=== PATIENT | female | born 1935 ===

== ENCOUNTER 2016-08-14 04:37 | Inpatient (IN) | payer MEDICARE, OTHER ==
[2016-08-14 04:39] VITALS: BMI 24.0
[2016-08-14] MEDS ORDERED: HYDROmorphone 1 mg/ml ISec IVP STA ×2 (04:48→06:29)
--- NOTE | 2016-08-14 04:53 | ED PDOC ---
Arrival/HPI - General Chief Complaint: Trauma Time Seen by Provider: 08/14/16 04:39 Historian: Patient - History of Present Illness Narrative History of Present Illness (Text): 08/14/16 04:50 Vanessa Foote is a 81 year old female, with a history of myeloma and arthritis , presents to the emergency department via EMS complaining of right sided hip pain following a trip and fall prior to arrival. Denies any head trauma or loss of consciousness. Denies numbness/weakness/tingling sensation to extremity. Denies fever, chills, headache, dizziness, chest pain, shortness of breath, nausea, vomiting, diarrhea, abdominal pain, back pain, or any other complaints at this time. Time/Duration: Prior to Arrival Symptom Onset: Sudden Symptom Course: Unchanged Severity Level: Mild Activities at Onset: Light Context: Tripped Past Medical History - Provider Review Nursing Documentation Reviewed: Yes - Infectious Disease Hx of Infectious Diseases: None - Cardiac Hx Hypertension: No Other/Comment: L chest pacemaker - Neurological HX Cerebrovascular Accident: Yes - HEENT Hx HEENT Disorder: Yes (cerumen impaction, eyeglasses) Hx Cataracts: Yes (b/l sx with implants) - Endocrine/Metabolic Hx Diabetes Mellitus Type 1: No Hx Diabetes Mellitus Type 2: No - Hematological/Oncological Hx Blood Transfusions: Yes Hx Blood Transfusion Reaction: No Hx Cancer: Yes Hx Shingles: Yes Other/Comment: Multiple Myeloma - Integumentary Hx Dermatological Disorder: No Other/Comment: Shingles in the right groin area and right upper buttocks - Musculoskeletal/Rheumatological Hx Arthritis: Yes - Gastrointestinal Hx Gastrointestinal Disorders: Yes (consitpation) - Genitourinary/Gynecological Hx Genitourinary Disorders: No Hx Incontinence: Yes - Psychiatric Hx Psychophysiologic Disorder: No Hx Substance Use: No - Surgical History Other/Comment: L chest pacemaker - Anesthesia Hx Anesthesia: Yes Hx Anesthesia Reactions: No Hx Malignant Hyperthermia: No Family/Social History - Physician Review Nursing Documentation Reviewed: Yes Family/Social History: No Known Family HX Smoking Status: Never Smoked Hx Alcohol Use: No Hx Substance Use: No Allergies/Home Meds Allergies/Adverse Reactions: Allergies No Known Allergies Allergy (Verified 09/21/15 10:23) Home Medications: Home Meds Medication Instructions Recorded Confirmed Aspirin [Aspirin Chewable] 81 mg PO DAILY 01/30/15 08/14/16 Lenalidomide [Revlimid] 10 mg PO DAILY 01/30/15 08/14/16 Alendronate Sodium/Vitamin D3 70 mg PO QWK 09/21/15 08/14/16 [Fosamax Plus D 70 mg-2,800 Iu] Carbamide Peroxide [Debrox Ear 5 drop OT BID 09/21/15 08/14/16 Drops] Cholecalciferol (Vitamin D3) 50,000 unit PO QWK 09/21/15 08/14/16 [D3-50] Cyanocobalamin [Vitamin B12 1000 1,000 mcg PO DAILY 09/21/15 08/14/16 mcg Tab] Levothyroxine Sodium [Synthroid] 200 mcg PO DAILY 09/21/15 08/14/16 Potassium Chloride [K-Dur 20 mEq 20 meq PO DAILY 09/21/15 08/14/16 ER Tab] traZODone [Desyrel] 25 mg PO HS 09/21/15 08/14/16 Physical Exam Vital Signs Reviewed: Yes Vital Signs Temp Pulse Resp BP Pulse Ox 08/14/16 07:30 70 16 128/68 97 08/14/16 04:40 97.8 F 65 18 143/71 98 Temperature: Afebrile Blood Pressure: Normal Pulse: Regular Respiratory Rate: Normal Appearance: Positive for: Well-Appearing, Non-Toxic, Comfortable Pain Distress: None Mental Status: Positive for: Alert and Oriented X 3 - Systems Exam Head: Present: Atraumatic, Normocephalic Pupils: Present: PERRL Extroacular Muscles: Present: EOMI Conjunctiva: Present: Normal Neck: Present: Normal Range of Motion. No: MIDLINE TENDERNESS, Paraspinal Tenderness Respiratory/Chest: Present: Clear to Auscultation, Good Air Exchange. No: Respiratory Distress, Accessory Muscle Use Cardiovascular: Present: Regular Rate and Rhythm, Normal S1, S2. No: Murmurs Abdomen: Present: Normal Bowel Sounds. No: Tenderness, Distention, Peritoneal Signs Back: Present: Normal Inspection. No: Midline Tenderness, Paraspinal Tenderness Upper Extremity: Present: Normal Inspection. No: Cyanosis, Edema Lower Extremity: Present: NORMAL PULSES, Tenderness (tender to palpation of right hip ), Neurovascularly Intact. No: Edema, Swelling Neurological: Present: GCS=15, CN II-XII Intact, Speech Normal, Motor Func Grossly Intact, Normal Sensory Function Skin: Present: Warm, Dry, Normal Color. No: Rashes Psychiatric: Present: Alert, Oriented x 3, Normal Insight, Normal Concentration Medical Decision Making ED Course and Treatment: 08/14/16 04:53 Impression: A 81 year old female who presents to the emergency department complaining of right hip pain following trip and fall prior to arrival. Plan: -- EKG -- Labs -- Chest X-ray -- Dilaudid -- Right hip X-ray -- Urinalysis -- Reassess and disposition Progress Notes: 08/14/16 05:49 EKG reviewed by me: Electronic atrial pacemaker @ 60 bpm. Nonspecific T wave abnormality. Prolonged QT. case d/w dr mitchell will admit for pelvic fracture 08/15/16 22:41 - Lab Interpretations Lab Results: 08/14/16 05:05 08/14/16 05:05 Lab Results 08/14/16 05:05: Sodium 142, Potassium 3.6, Chloride 102, Carbon Dioxide 29, Anion Gap 15, BUN 18, Creatinine 0.9, Est GFR ( Amer) > 60, Est GFR (Non- Af Amer) > 60, Random Glucose 102, Calcium 8.7, Total Bilirubin 0.9, AST 46 H, ALT 48, Alkaline Phosphatase 86, Troponin I 0.02 D, Total Protein 8.1, Albumin 4.0, Globulin 4.1, Albumin/Globulin Ratio 1.0 L 08/14/16 05:05: PT 10.8, INR 1.00, APTT 26.0 08/14/16 05:05: WBC 4.4 L, RBC 3.25 L, Hgb 11.2 L, Hct 33.6 L, MCV 103.4, MCH 34.5, MCHC 33.3, RDW 13.9, Plt Count 146, MPV 9.5, Gran % 49.7 L, Lymph % (Auto ) 33.9, Cedar % (Auto) 10.8 H, Eos % (Auto) 4.7, Baso % (Auto) 0.9, Gran # 2.20, Lymph # 1.5, Cedar # 0.5, Eos # 0.2, Baso # 0.04 - RAD Interpretation Radiology Orders: 08/14/16 04:47 Hip Right [HIP MIN 2V W/ PELVIS RT] [RAD] Stat 08/14/16 04:48 CHEST ONE VIEW [RAD] Stat - Medication Orders Current Medication Orders: Docusate Sodium (Colace) 100 mg PO TID [facility] Last Admin: 08/15/16 17:44 Dose: 100 mg Enoxaparin Sodium (Lovenox) 40 mg SC DAILY [facility] PRN Reason: Protocol Last Admin: 08/15/16 10:48 Dose: 40 mg Hydromorphone HCl (Dilaudid) 0.5 mg IVP Q4H PRN PRN Reason: pain Last Admin: 08/15/16 21:19 Dose: 0.5 mg Levothyroxine Sodium (Synthroid) 200 mcg PO DAILY [facility] Last Admin: 08/15/16 10:50 Dose: 200 mcg Metoprolol Tartrate (Lopressor) 25 mg PO BID [facility] Last Admin: 08/15/16 17:36 Dose: Not Given Non-Admin Reason: BP Parameters Not Met Pantoprazole Sodium (Protonix Ec Tab) 40 mg PO ACB [facility] Last Admin: 08/15/16 07:45 Dose: 40 mg Polyethylene Glycol (Miralax) 17 gm PO DAILY [facility] Last Admin: 08/15/16 10:49 Dose: 17 gm Tramadol HCl (Ultram) 50 mg PO TID PRN PRN Reason: Pain, moderate (4-7) Last Admin: 08/15/16 14:40 Dose: 50 mg Re-Assess: ROSI Pain Assessment Document 08/15/16 15:40 AJ (Rec: 08/15/16 17:36 [id number]) Pain Reassessment Is this a pain reassessment? Yes Sleep Is patient sleeping during reassessment? Yes Trazodone HCl (Desyrel) 25 mg PO [facility] Last Admin: 08/15/16 21:19 Dose: 25 mg Discontinued Medications Hydromorphone HCl (Dilaudid) 1 mg IVP STAT STA Stop: 08/14/16 04:49 Last Admin: 08/14/16 05:24 Dose: 1 mg Hydromorphone HCl (Dilaudid) 1 mg IVP STAT STA Stop: 08/14/16 06:30 Last Admin: 08/14/16 06:41 Dose: 1 mg Lenalidomide [ Revlimid] 10 Mg ( Home Med) 10 mg PO DAILY [facility] Last Admin: 08/14/16 10:57 Dose: Pantoprazole Sodium (Protonix Inj) 40 mg IVP DAILY [facility] Last Admin: 08/14/16 10:57 Dose: 40 mg Pneumococcal Polyvalent Vaccine (Pneumovax 23 Vaccine) 0.5 ml IM .ONCE ONE Stop: 08/14/16 13:57 Last Admin: 08/15/16 10:49 Dose: - Scribe Statement The provider has reviewed the documentation as recorded by the Grey Maradiaga Provider Attestation: All medical record entries made by the Grey were at my direction and personally dictated by me. I have reviewed the chart and agree that the record accurately reflects my personal performance of the history, physical exam, medical decision making, and the department course for this patient. I have also personally directed, reviewed, and agree with the discharge instructions and disposition. Disposition/Present on Arrival - Present on Arrival Any Indicators Present on Arrival: No History of DVT/PE: No History of Uncontrolled Diabetes: No Urinary Catheter: No History of Decub. Ulcer: No History Surgical Site Infection Following: None - Disposition Have Diagnosis and Disposition been Completed?: Yes Diagnosis: Pelvis fracture, right Disposition: HOSPITALIZED Disposition Time: 06:40 Condition: FAIR
[2016-08-14 05:35] LABS: ADD MANUAL DIFF? NO
[2016-08-14 05:40] LABS: BASO # 0.04 K/mm3 (0.0-2.0); BASO % 0.9 % (0.0-3.0); EOS # 0.2 (0.0-0.7); EOS % 4.7 % (1.5-5.0); GRAN % 49.7 % (50.0-68.0); HEMATOCRIT 33.6 % (36.0-48.0); LYMPH # 1.5 (1.2-3.4); LYMPH % 33.9 % (22.0-35.0); MEAN CELL VOLUME 103.4 fL (80.0-105.0); MEAN CORPUSCULAR HEMOGLOBIN 34.5 pg (25.0-35.0); MEAN CORPUSCULAR HGB CONC 33.3 g/dl (31.0-37.0); MEAN PLATELET VOLUME 9.5 fl (7.0-11.0); MONO # 0.5 (0.1-0.6); MONO % 10.8 % (1.0-6.0); PLATELET COUNT 146 10^3/uL (120.0-450.0); RED CELL DISTRIBUTION WIDTH 13.9 % (11.5-14.5); WHITE BLOOD COUNT 4.4 10^3/ul (4.5-11.0)
[2016-08-14 05:59] LABS: ALKALINE PHOSPHATASE 86 U/L (38-133); ALT/SGPT 48 U/L (7-56); AST/SGOT 46 U/L (15-39); BILIRUBIN,TOTAL 0.9 mg/dL (0.2-1.3); BLOOD UREA NITROGEN 18 mg/dL (7-21); CALCIUM 8.7 mg/dL (8.4-10.5); CARBON DIOXIDE 29 mmol/L (21-33); CHLORIDE 102 mmol/L (95-110); GFR AFRICAN-AMERICAN > 60; GLUCOSE,RANDOM 102 mg/dL (70-110); POTASSIUM 3.6 mmol/L (3.6-5.0); SODIUM 142 mmol/L (132-148); TOTAL PROTEIN 8.1 g/dL (5.8-8.3)
[2016-08-14 06:04] LABS: TROPONIN I 0.02 ng/mL
--- NOTE | 2016-08-14 09:04 | RAD ---
PROCEDURE: Right Hip Radiographs. A-P of the O with his 3rd fraction the iliac crests HISTORY: fall COMPARISON: None. FINDINGS: BONES: Right hip appears intact. No dislocation or fracture. Comminuted fracture right inferior pubic ramus. Fracture lateral aspect right superior pubic ramus. zFracture junction of right superior pubic ramus with pubic symphysis, possibly comminuted. Displaced fracture right iliac wing. Likely comminuted. . JOINTS: Normal. SOFT TISSUES: Normal. OTHER FINDINGS: None. IMPRESSION: Fracture right superior and inferior pubic rami. Fracture right iliac wing. Unremarkable hip.
--- NOTE | 2016-08-14 09:05 | RAD ---
PROCEDURE: CHEST RADIOGRAPH, 1 VIEW HISTORY: pain COMPARISON: 09/26/2015 FINDINGS: LUNGS: Clear. PLEURA: No pneumothorax or pleural fluid seen. CARDIOVASCULAR: Permanent pacemaker. No congestive change. OSSEOUS STRUCTURES: Deformity right humeral neck, likely old healed fracture. No change from prior chest radiograph. VISUALIZED UPPER ABDOMEN: Normal. OTHER FINDINGS: None. IMPRESSION: No active disease.
[2016-08-14] MEDS ORDERED: LENALIDOMIDE 10 MG PO SCH (10:00)
[2016-08-14] MEDS: HYDROmorphone 0.5 mg/0.5 ml ISec IVP PRN ×2 (10:57→21:02)
[2016-08-14] MEDS: Levothyroxine 200 MCG TAB PO SCH (10:57)
--- NOTE | 2016-08-14 13:29 | CT ---
PROCEDURE: CT of the hips and pelvis HISTORY: do hip and pelvis - has pelvic fracture COMPARISON: TECHNIQUE: Axial imaging with sagittal and coronal reconstructions FINDINGS: There is a displaced comminuted fracture of the right iliac bone adjacent to the sacroiliac joint. There is a transverse fracture through base of the superior pubic ramus seen on image 53 series 2. There is a displaced comminuted fracture of the inferior pubic ramus on the right image 72 series 2. Several lucent lesions are seen which are suspicious for metastatic disease. This could be secondary to osteoporosis. These lesions are seen in the right ischium on coronal image 67 and in the right greater tuberosity and the left femoral head. Despite the extent of the right-sided pelvic fractures the acetabulum is intact IMPRESSION: Displaced comminuted fracture of the right iliac bone and fractures through the superior and inferior pubic rami on the right. Several lucent lesions which could represent metastatic disease or could be secondary to severe osteoporosis. Clinical correlation is suggest
[2016-08-14] MEDS ORDERED: Pneumococcal 23-Valent Vaccine IM ONE (13:56)
--- NOTE | 2016-08-14 15:07 | CON ---
DATE: 08/14/2016 REASON FOR CONSULTATION: Cardiac evaluation for pelvic fracture. Preop evaluation and risk stratifi cation. Is status post permanent pacemaker. BRIEF CLINICAL HISTORY: This is a 81-year-old female with a past medical history significant for mul tiple myeloma, hypothyroidism, hypertension, depression, CVA, bone marrow transplant, status post pac emaker in 01/2015, who fell down in living room and sustained pelvic fracture, right side, possibly r equiring OR internal fixation. Cardiac consult was called for preop evaluation and risk stratificati on. PAST HISTORY: Significant for multiple myeloma, hypothyroidism, hypertension, depression, CVA, bone marrow transplantation, multiple myeloma, history of permanent pacemaker in 01/2015, when patient pre sented with subtrochanteric fracture of left femur, for symptomatic bradycardia. PAST SURGICAL HISTORY: Significant for status post left trochanteric fracture, history of permanent pacemaker by Dr. Guido in 01/2015 -- dual chamber pacemaker, MRI safe [employer], 01/30/2015. ALLERGIES: No known drug allergies. SOCIAL HISTORY: Denies smoking. Denies any history of alcohol abuse. The patient's daughter named Nelda is at the bedside. Information obtained from the patient as well as Nelda. CURRENT MEDICATIONS: The patient at home was taking Desyrel, trazodone, potassium, levothyroxine, Co lace, cyanocobalamin, vitamin B3, aspirin, and Fosamax. REVIEW OF SYSTEMS: As per HPI. PHYSICAL EXAMINATION: As follows: VITAL SIGNS: Temperature afebrile, heart rate 70, blood pressure 128/68. HEENT: PERRLA. Extraocular muscles intact. NECK: Supple. No carotid bruits. No thyromegaly. CHEST: Clear to auscultation. HEART: S1, S2 regular. ABDOMEN: Soft. EXTREMITIES: Clubbing and cyanosis negative. PREVIOUS CARDIAC WORKUP: As follows: The patient had echocardiography done 01/31/2015. It shows hyp ertrophy, LVH and normal LV function, no segmental wall motion abnormality, moderate aortic sclerosis , mild aortic regurgitation, RV systolic pressure 32, calculated ejection fraction 55%. Status post permanent pacemaker dual chamber 01/30/2015, [employer] MRI safe by Dr. Guido because of symptomatic bradycardia and sick sinus syndrome. IMPRESSION: Status post pacemaker, sick sinus syndrome, dual chamber pacemaker 01/30/2015 -- MRI safe [employer]. Last echo shows normal left ventricular function, no regional wall motion abnormality, right ventricular systolic pressure 32, moderate aortic stenosis, mild aortic regurgitation, status p ost fall, hip fracture, pelvic fracture right, status post hip fracture, left trochanteric fracture s tatus post open reduction internal fixation in 01/2015; hypertension, hypothyroidism, multiple myelom a, status post bone marrow transplantation, cerebrovascular accident, depression and hypothyroidism, anemia. BLOOD WORKUP: WBC 4.4, hemoglobin ____, hematocrit 33.6, platelet count 146. Sodium 140, potassium 3.6, chloride ____, carbon dioxide ____, anion gap of 15, BUN 18, creatinine 0.9. PHYSICAL EXAMINATION: Rest of the examination as follows: VITAL SIGNS: Temperature afebrile, heart rate 65, blood pressure 143/71. HEENT: PERRLA, extraocular muscles intact. NECK: Supple. No carotid bruits or thyromegaly. CHEST: Clear to auscultation. HEART: S1, S2 regular. ABDOMEN: Soft. EXTREMITIES: Clubbing and cyanosis negative. FAMILY HISTORY: Noncontributory. RECOMMENDATION: No absolute contraindication for surgery, but to minimize risk, we will get an echo to assess LV function. Follow up with you. Start low dose of beta [place] and the patient should no t got into AFib. History of sick sinus syndrome in the past, status post permanent pacemaker. Sadie nue rest of the medication. We will follow with you. We will get the lipid profile, TSH, hemoglobin A1c. Further recommendation per hospital course. We will follow with you. Thank you, Dr. Bernardo, for providing the opportunity in taking care of the patient. Again, if the pa tient needs urgent surgery, patient is okay to go for surgery. Is a high risk because of underlying comorbidity, but ____ planned ____ surgery, we will get at least echo to assess LV function and aorti c valve area. We will follow with you. Yuridia Wayne MD cc: [id number] TT: 08/14/2016 13:45:45 Confirmation # [id number] Dictation # [id number] 08/14/2016 14:06:59
[2016-08-14] MEDS: Enoxaparin 40 mg Syringe SC SCH (18:09)
--- NOTE | 2016-08-14 22:42 | CARD ---
APPROVED REPORT EKG Measurement Heart [id number] <Conclusion> Electronic atrial pacemaker Nonspecific T wave abnormality Prolonged QT Abnormal ECG
--- NOTE | 2016-08-15 02:59 | CON ---
DATE: 08/14/2016 REFERRING PHYSICIAN: Dr. Bernardo. REASON FOR CONSULT: Status post fall with a right pelvic fracture. 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 Trauma she is on the right. Also suggeste d of metastatic disease. The patient was seen by orthopedic surgery. Patient was not a candidate fo r surgery and oncology services have been called. She is lying in the bed. No headache, no rhinitis , no cough. No chest pain, no nausea, no vomiting. Has right leg pain. PAST MEDICAL HISTORY: As per history of present illness. ALLERGIES: None known. SOCIAL HISTORY: Nonsmoker, nondrinker. PAST SURGICAL HISTORY: Remarkable with left trochanter fracture in the past and cardiac pacemaker. FAMILY HISTORY: No significant cardiopulmonary disease reported. MEDICATIONS: She is on Colace 100 mg 3 times a day, trazodone 25 mg at bedtime, Dilaudid 0.5 mg IV q . 4 hours p.r.n., home medication and is lenalidomide 10 mg daily, metoprolol tartrate has been 5 mg, last day, Lovenox 40 mg daily, Protonix 40 mg daily, Synthroid 20 mg daily, Ultram 50 mg 3 times a d ay. REVIEW OF SYSTEMS: No headache, no rhinitis, no nausea, no chest pain. No abdominal pain. Has righ t hip discomfort. No dysuria, no swelling. PHYSICAL EXAMINATION: GENERAL: Lying in the bed, in no acute distress. VITAL SIGNS: Temp is 98, heart rate is 70, respiratory rate is 16, blood pressure 128/68, Pulse ox 97% on room air. HEENT: Moist mucous membranes. Small oral cavity. Crowded airway. NECK: Supple. No JVD. LUNGS: Fair airflow with few rhonchi. HEART: S1, S2. ABDOMEN: Soft, nontender. No organomegaly. EXTREMITIES: The left hip is tender: There is no edema. NEUROLOGIC: Awake, alert, follows simple commands. LABORATORY DATA: Shows hemoglobin 11.2, hematocrit 33.6, WBC 4.4, platelet is 146. INR 1.0, PTT is 26. Sodium 142, potassium 3.6, chloride 102, bicarbonate 29, BUN 18, creatinine 0.9, glucose 102, ca lcium 8.7, total bilirubin 0.9, AST 46, ALT 48, alkaline phosphatase is 86. Troponin is 0.02. Album in is 4.0. CT of the hip shows right iliac fracture to the pubic rami. Chest x-ray done today shows no infiltrate or effusion. IMPRESSION AND PLAN: Status post accidental fall with a right iliac bone fracture with superior infe rior rami fracture, history of multiple myeloma, hypertension, history of previous CVA, depression, h istory of bone marrow transplant, cardiac arrhythmia requiring pacemaker. Case discussed with Dr. Samson mora in detail, who spoke to DrJeff . The patient is not a surgical candidate and oncology consult has been called. Pulmonary point of view, start thrombosis prophylaxis. Gastric prophylaxis. May get SCD to both lower extremities. Thank you and will follow with you Yuridia Marquez MD cc: [id number] TT: 08/15/2016 02:58:18 Confirmation # [id number] Dictation # [id number] mn
--- NOTE | 2016-08-15 07:36 | HP ---
CHIEF COMPLAINT: Fall, pain in the right hip. HISTORY OF PRESENT ILLNESS: The patient is a 81-year-old female with past medical history of multiple myeloma, arthritis, history of shingles, came to the Emergency Room by EMS complaining of right-sided hip pain following a trip and fall prior to arrival. Denies any head trauma, loss of consciousness. Denies numbness, weakness or tingling sensation to the extremity. No fever, no hematuria, no hematochezia, no chills, no headache, no shortness of breath, no abdominal pain. No back pain. PAST MEDICAL HISTORY: Left chest pacemaker, history of a cerebrovascular accident, cataract surgery, anemia, history of blood transfusion, history of shingles, constipation. FAMILY HISTORY: Father and mother noncontributory. HABITS: Never smoked, no drugs, no ethanol. ALLERGIES: The patient is not allergic with any medications. HOME MEDICATIONS: Aspirin, Revlimid, Fosamax, vitamin D, cyanocobalamin, levothyroxine, potassium, trazodone. PHYSICAL EXAMINATION: VITAL SIGNS: Temperature is 97.8, pulse 55, respiratory rate 18, blood pressure 143/71, and pulse oximetry 98. HEENT: Head normocephalic, atraumatic. Eyes: PERRLA. Extraocular muscles intact. Conjunctivae pink. Eyelids unremarkable. Nose patent. NECK: Supple. No carotid bruit. No JVD or thyromegaly. CHEST: Bilaterally symmetrical. HEART: S1, S2 positive. LUNGS: Clear to auscultation. ABDOMEN: Soft. Bowel sounds present. No organomegaly. EXTREMITIES: No edema, no cyanosis. Tenderness to the palpation of the right hip. NEUROLOGIC: The patient is awake, alert. Cranial nerves II-XII are grossly Intact. Speech is normal. LABORATORY DATA: White blood cells 4.4, hemoglobin 11.2, hematocrit 33.6, and platelets 146. Sodium 142, potassium 3.6, BUN 18, creatinine 0.9, AST 46. ASSESSMENT AND PLAN: The patient is a 81-year-old lady with abnormal liver function tests, leukopenia, anemia, seen by Dr. Wayne, epic analyst, in the process of making the patient clear for surgery. 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 According to Dr. Wayne, no absolute contraindication for surgery, but minimal risk. We will get an echo to assess the left ventricular function. He started low dose of beta [place] so the patient should not go to atrial fibrillation. History of sick sinus syndrome in the past, status post permanent pacemaker. Reviewed Dr. Wayne's notes. Chest x-ray, pelvis and hip x-rays and hip CT reviewed. consult called with Dr. Godfrey, waiting for documentation, but according to Tasneem, nurse practitioner, look like the patient has malignancy with metastasis and we have to call oncology consult. I called Dr. Dennis. Discussion done with Dr. Marquez , stevedoring supervisor, in the process of getting clearance for surgery. We will follow up. Sussy Bernardo MD cc: [id number] TT: 08/15/2016 07:36:07 tn MTDD
[2016-08-15] MEDS: Pantoprazole 40 mg EC Tab PO SCH (07:45)
[2016-08-15 07:52] LABS: BASO # 0.03 K/mm3 (0.0-2.0); BASO % 1.1 % (0.0-3.0); GRAN # 1.61 (1.4-6.5); GRAN % 60.1 % (50.0-68.0); HEMATOCRIT 26.9 % (36.0-48.0); LYMPH # 0.5 (1.2-3.4); LYMPH % 19.8 % (22.0-35.0); MEAN CELL VOLUME 102.7 fL (80.0-105.0); MEAN CORPUSCULAR HEMOGLOBIN 34.4 pg (25.0-35.0); MEAN CORPUSCULAR HGB CONC 33.5 g/dl (31.0-37.0); MEAN PLATELET VOLUME 8.9 fl (7.0-11.0); MONO # 0.5 (0.1-0.6); PLATELET COUNT 110 10^3/uL (120.0-450.0); RED CELL DISTRIBUTION WIDTH 13.9 % (11.5-14.5)
[2016-08-15 07:57] LABS: ALB/GLOB RATIO 0.9 (1.1-1.8); ALKALINE PHOSPHATASE 60 U/L (38-133); ALT/SGPT 35 U/L (7-56); AST/SGOT 34 U/L (15-39); BILIRUBIN,TOTAL 1.1 mg/dL (0.2-1.3); BLOOD UREA NITROGEN 20 mg/dL (7-21); CALCIUM 8.3 mg/dL (8.4-10.5); CARBON DIOXIDE 30 mmol/L (21-33); CHLORIDE 103 mmol/L (98-107); CHOLESTEROL 141 mg/dL (130-200); GFR AFRICAN-AMERICAN > 60; GLUCOSE,RANDOM 86 mg/dL (70-110); MAGNESIUM 1.9 mg/dL (1.7-2.2); PHOSPHOROUS 3.5 mg/dL (2.5-4.5); POTASSIUM 3.8 mmol/L (3.6-5.0); SODIUM 139 mmol/L (132-148); TOTAL PROTEIN 6.9 g/dL (5.8-8.3)
[2016-08-15 08:04] LABS: IRON 50 ug/dL (45-180)
[2016-08-15 08:08] LABS: ADD MANUAL DIFF? NO; WHITE BLOOD COUNT 2.7 10^3/ul (4.5-11.0)
--- NOTE | 2016-08-15 08:12 | CON ---
DATE: 08/14/2016 REQUESTED BY: Dr. Bernardo. REASON FOR CONSULTATION: Multiple myeloma, pelvic fracture. HISTORY OF PRESENT ILLNESS: The patient is a 81-year-old female admitted to the hospital after she fell in the house. She has pelvic fracture. She has history of multiple myeloma diagnosed in 2009. In the year 2009, she underwent autologous stem cell transplantation and is being followed at [facility] at [facility]. She said she goes regularly there. Her last evaluation was a month ago. As per the patient, she has been in remission after transplant. She is on revilimid for multiple myeloma. She told me that she gets a scans for bony lesions once a year. She does not recollect the last imaging or skeletal x-rays done. There were few lytic lesions seen on pelvic x- rays. Denies any pain. PAST MEDICAL HISTORY: History of blood transfusion, history of incontinence and recently had a pacemaker placed. PAST SURGICAL HISTORY: Pacemaker placement. FAMILY HISTORY: Noncontributory. SOCIAL HISTORY: Lives at home alone. ALLERGIES: No known drug allergies. HOME MEDICATIONS: Aspirin 81 mg daily, Revlimid, Fosamax 70 mg q. weekly, vitamin D, vitamin B12, levothyroxine 200 mcg daily, potassium supplement, Trazodone 25 mg p.o. at bedtime. REVIEW OF SYSTEMS: As per HPI, except for 12-point review of system reviewed and negative. PHYSICAL EXAMINATION: GENERAL: Comfortable in bed, in no acute distress. Alert, oriented x 3. VITAL SIGNS: Stable. Temperature 98.7, blood pressure 140/70, heart rate is 98 per minute, pulse rate is 65 per minute. HEENT: Head atraumatic, normocephalic. Oral mucosa moist. NECK: Supple. CHEST: Air entry present, equal bilateral. No added sound. CARDIOVASCULAR: Within normal limits. ABDOMEN: Soft, nontender, no hepatosplenomegaly. EXTREMITIES: 1+ edema bilaterally. No calf tenderness. SKIN: No petechiae, no rash. Lymphadenopathy- none.. SUGAR SAMPLER : no cranial nerve palsy, no sensory motor deficit. LABORATORY DATA: White count 4.4, hemoglobin 11.2, hematocrit 33.6, platelet count 146. Chemistry: Sodium 142, potassium 3.6, total bilirubin 0.9, AST 46, ALT 48. ASSESSMENT: 1. Multiple myeloma. 2. Fractured pelvic. 3. Osteoporosis. 4. Coronary artery disease. 5. Hypertension. PLAN: Hematology: Blood counts stable. Leukopenia. She has leukopenia with white count of 4.4, mild anemia , hemoglobin 11.2. She is on Revlimid, which can cause leukopenia and anemia. Will do the workup, iron studies, B12, folate level. She is also on B12 supplements. As per patient, she had been in remission after bone marrow transplantation in 2009. She follows with [facility] in myeloma program. Osteoporosis needs to be ruled out. She is currently on Fosamax. Newer agents are available for osteoporosis. She might benefit from them if she has osteoporosis. I will request records from [facility]. She lived in [facility] and [facility] was convenient for her. Now, she moved to [place] recently, she is requesting that if she can get medical followup locally in addition to [facility], I will discuss with the MDs at [facility] and try to coordinate her care at [place]. 2. Pain management as per primary team. Pelvic fracture secondary to mechanical fall. 3 She is currently on deep venous thrombosis prophylaxis with Lovenox 40 mg subQ. 4. hypothyroidism. She is on Synthroid 200 mcg daily. serum protein electrophoresis, immunofixation light chain assay , workup for anemia. Skeletal survey when stable. Thank you, Dr. Bernardo, for allowing us to participate in the patient's care. Sadia Dennis MD cc: [id number] TT: 08/15/2016 01:36:21 Confirmation # [id number] Dictation # [id number] daniel HANDLEY
--- NOTE | 2016-08-15 10:00 | CP.PCM.PCO ---
Physician Communication Note - Physician Communication Note Physician Communication Note: hold revlimid for leukopenia
--- NOTE | 2016-08-15 10:19 | CON ---
DATE: 08/15/2016 REASON FOR CONSULTATION: Right pelvic fracture status post mechanical fall. HISTORY OF PRESENT ILLNESS: This is a 81-year-old female with a history of multiple myeloma, hypothy roidism, prior left femoral hip fracture, history of CVA, who presented status post mechanical fall a t home with complaints of right pelvic pain and inability to ambulate. The patient normally ambulate s with a walker. She denies any other injuries. She denies any numbness or tingling going down her legs. She says her pain is mostly in her groin in the right pelvic region some. According to the prachi pereyra, she is currently receiving treatment for multiple myeloma with her doctor at [facility]. PHYSICAL EXAMINATION: GENERAL: This is an elderly female in no apparent distress. She is awake, alert and oriented x 3. NEUROLOGIC: She is grossly intact. EXTREMITIES: She has pain with passive range of motion of her hip. No gross crepitus is appreciated . Her thigh is otherwise soft. Her thigh and calf are otherwise soft and nontender. She is nontend er over her femoral or tibial shafts. She is moving her ankle without any difficulty. She has palpa ble distal pulses. Grossly, she is neurologically intact. She is tolerating some passive and active range of motion of the left lower extremity without significant pain. DATA: X-rays and CAT scan of her hip show a right-sided superior and inferior rami fractures, a comm inuted displaced right iliac crest fracture remind reminded. There are no obvious intracapsular hip fractures appreciated. The rami fracture appears to be a high rami and it does not appear to have si gnificant involvement of the acetabulum. The pelvic fractures, there appeared to be multiple lucent lesions in the ilium and pelvis, most likely consistent with her multiple myeloma and resulting in th radha pathological fractures. IMPRESSION: Right pathologic pelvic fractures. PLAN: At this point, I recommended that we get the oncology service on board to consult on her multi ple myeloma. For now, I recommended nonweightbearing on the right lower extremity, DVT prophylaxis. I am going to speak to her family about treatment options for this. Devante Godfrey MD cc: [id number] TT: 08/15/2016 10:18:42 Confirmation # [id number] Dictation # [id number] dn
[2016-08-15] MEDS: HYDROmorphone 0.5 mg/0.5 ml ISec IVP PRN ×3 (10:47→21:19)
[2016-08-15] MEDS: Enoxaparin 40 mg Syringe SC SCH (10:48)
[2016-08-15] MEDS: POLYETHYLENE GLYCOL 3350 17 GM/Dose PACKET PO SCH (10:49)
[2016-08-15] MEDS: Levothyroxine 200 MCG TAB PO SCH (10:50)
[2016-08-15 13:28] LABS: FOLATE 19.6 ng/mL
--- NOTE | 2016-08-15 16:53 | PN ---
DATE: 08/15/2016 REFERRING PHYSICIAN: Dr. Bernardo. SUBJECTIVE: She is lying in the bed. No headache, no rhinitis, no cough, no sputum production, no n ausea, no vomiting, has a right hip, leg discomfort. OBJECTIVE: GENERAL: No acute distress. VITAL SIGNS: Temp is 98, heart rate is 59, respiratory rate is 20, blood pressure 106/51, pulse ox 9 6% on room air. HEENT: Small oral cavity. Crowded airway. NECK: Supple. No JVD. LUNGS: Has a fair airflow with few rhonchi. HEART: S1, S2. ABDOMEN: Soft, nontender. No organomegaly. EXTREMITIES: Right hip tenderness, no swelling of the right leg. NEUROLOGIC: Awake, alert, follows simple command. MEDICATIONS: She is on Colace 100 mg 3 times a day, trazodone mg at bedtime, Dilaudid 0.5 mg I V q. 4 hours p.r.n., metoprolol tartrate 25 mg twice a day, Lovenox 40 mg daily, MiraLax 17 grams josé miguel ly, Protonix 40 mg daily, Synthroid 200 mcg daily, Ultram 50 mg 3 times a day p.r.n. LABORATORY DATA: Shows hemoglobin 9.0, hematocrit 26.9, WBC 2.7, platelet is 110. INR 1.0, PTT is 2 6, sodium 139, potassium 3.8, chloride 103, bicarbonate 30, BUN 20, creatinine 0.9. Hemoglobin A1c 5 .2, calcium 8.3, phosphorus 3.5, magnesium 1.9, iron 50, ferritin is 184, total bili 1.1, AST 34, ALT 35. Albumin 3.3. Folate 19. B12 323. TSH is 5.69. IMPRESSION AND PLAN: Status post mechanical fall with rami fracture, has multiple myeloma, hypertens ion, previous cerebrovascular accident, depression, history of bone marrow transplant, cardiac arrhyt hmia requiring pacemaker, anemia, leukopenia, Revlimid was placed on hold, on gastric and DVT p rophylaxis, seen by orthopedics and hematology. Keep SCD to lower extremities, early therapy, once c leared by orthopedics. Thank you and we will follow with you. Yuridia Marquez MD cc: [facility] TT: 08/15/2016 16:52:02 Confirmation # [id number] Dictation # [id number] cn
--- NOTE | 2016-08-15 19:27 | PN ---
DATE: 08/15/2016 The patient is in room 574, bed 1. REASON FOR CONSULTATION: Cardiac evaluation for pelvic fracture, preop evaluation and risk stratific ation, status post permanent pacemaker insertion. HISTORY OF PRESENT ILLNESS: The patient is a 81-year-old female with a past medical history signific ant for multiple myeloma, hypothyroidism, hypertension, depression, CVA, bone marrow transplant, stat us post pacemaker in 01/2015, fell down in the living room and sustained a pelvic fracture on the rig ht side. The patient denies any chest pain, shortness of breath, or palpitation. PHYSICAL EXAMINATION: VITAL SIGNS: Blood pressure 119/57, respirations 20, pulse 62, temperature 99.1. HEAD: Normocephalic. EYES: Pupils normal. Conjunctivae are slightly pale. NECK: JVP low. Carotid equal. THORAX: AP diameter normal. LUNGS: Clear. CARDIOVASCULAR: S1, S2. ABDOMEN: Soft, nontender, no organomegaly. EXTREMITIES: No clubbing, no cyanosis. LABORATORY DATA: WBC is 2.7, hemoglobin 9.0, hematocrit 26.9, platelets 110. Sodium 139, potassium 3.8, BUN 20, creatinine 0.9, calcium 8.3, phosphorus 3.5, magnesium 1.9. Total protein and albumin n ormal. AST and ALT normal. Dual chamber pacemaker on [employer]tronic, MRI safe, was put in by Dr. Guido. DIAGNOSES: Status post permanent pacemaker insertion, dual chamber pacemaker, Medtronic, MRI safe, o n ; hypertension, hypothyroidism, multiple myeloma, status post bone marrow transplantation, cer ebrovascular accident, depression, anemia. PLAN: The echo will be done today and will follow the echo. Previous echo was done in 2014 and desc ribed in our consult of yesterday. The patient can go for any orthopedic surgery from cardiac point of view as a moderate risk, will fol low the echo report. The patient has been put on metoprolol 25 b.i.d., which we will continue; Loven ox 40 mg subQ daily, Protonix 40 mg p.o. daily, levothyroxine 200 mcg p.o. daily, Desyrel 25 mg p.o. at bedtime and trazodone. Will follow with you. Yuridia Lawson MD cc: [id number] TT: 08/15/2016 19:26:53 Confirmation # [id number] Dictation # [id number] dn
--- NOTE | 2016-08-15 20:11 | CARD ---
APPROVED REPORT EXAM: Two-dimensional and M-mode echocardiogram with Doppler and color Doppler. INDICATION Pre-Op 2D DIMENSIONS Left Atrium (2D)4.0 (1.6-4.0cm)IVSd1.1 (0.7-1.1cm) LVDd3.6 (3.9-5.9cm)PWd1.0 (0.7-1.1cm) LVDs2.4 (2.5-4.0cm)FS (%) 32.6 % LVEF (%)61.9 (>50%) M-Mode DIMENSIONS Aortic Root3.00 (2.2-3.7cm)Aortic Cusp Exc.1.40 (1.5-2.0cm) Aortic Valve AoV Peak Wzqskngn486.0cm/Nasir Peak GR.12mmHg Mitral Valve MV E Kjhhcaxn69.9cm/sMV A Eelzngzp74.4cm/sE/A ratio0.9 TDI E/Lateral E'0.0E/Medial E'0.0 Tricuspid Valve TR Peak Kyanvylm244cg/sRAP [id number] Peak Gr.32mmHg FYHK28pvHn LEFT VENTRICLE The left ventricle is normal size. There is normal left ventricular wall thickness. The left ventricular function is normal. There is normal LV segmental wall motion. Transmitral Doppler flow pattern is Grade III-reversible restrictive diastolic dysfunction. No left ventricle thrombus noted on this study. There is no ventricular septal defect visualized. There is no left ventricular aneurysm. There is no mass noted in the left ventricle. RIGHT VENTRICLE The right ventricle is normal size. There is normal right ventricular wall thickness. The right ventricular systolic function is normal. There is a pacemaker lead in the right ventricle. ATRIA The left atrium is mildly dilated. The right atrium size is normal. There is a catheter/pacemaker lead seen in the right atrium. The interatrial septum is intact with no evidence for an atrial septal defect. AORTIC VALVE The aortic valve is thickened but opens well. There is moderate aortic regurgitation. There is no aortic valvular stenosis. There is no aortic valvular vegetation. MITRAL VALVE The mitral valve is thickened but opens well. Mitral annular calcification is mild to moderate. Mitral regurgitation is trace. There is no mitral valve stenosis. There is no evidence of mitral valve prolapse. TRICUSPID VALVE The tricuspid valve leaflets are thickened , but open well. There is mild to moderate tricuspid regurgitation.RVSP-42 mmof hg There is no tricuspid valve stenosis. There is no tricuspid valve prolapse or vegetation. PULMONIC VALVE The pulmonary valve is normal in structure. There is no pulmonic valvular regurgitation. There is no pulmonic valvular stenosis. GREAT VESSELS The aortic root is normal in size. The ascending aorta is normal in size. The pulmonary artery is normal. The IVC is normal in size and collapses >50% with inspiration. PERICARDIAL EFFUSION There is no pleural effusion. There is no pericardial effusion. <Conclusion> The left ventricle is normal size. There is normal left ventricular wall thickness. The left ventricular function is normal. There is a pacemaker lead in the right ventricle. There is moderate aortic regurgitation. There is no aortic valvular stenosis. Mitral regurgitation is trace. There is mild to moderate tricuspid regurgitation.RVSP-42 mmof hg The IVC is normal in size and collapses >50% with inspiration. There is no pericardial effusion.
[2016-08-16 06:41] LABS: TOTAL PROTEIN, SERUM 6.4 g/dL (6.1-8.1)
[2016-08-16] MEDS ORDERED: HYDROmorphone 1 mg/ml ISec IVP PRN (13:00)
[2016-08-16] MEDS ORDERED: Oxycodone/Acetaminophen 5/325 mg Tab PO PRN (14:00)
[2016-08-16 15:06] LABS: ABNORMAL PROTEIN BAND 1 0.57 g/dL (None Detected); BETA 1 GLOBULIN 0.4 g/dL (0.4-0.6); BETA 2 GLOBULIN 0.5 g/dL (0.2-0.5); GAMMA GLOBULIN 1.3 g/dL (0.8-1.7)
--- NOTE | 2016-08-16 16:43 | PN ---
DATE: 08/16/2016 REASON FOR CONSULTATION AND FOLLOWUP: Preop evaluation and risk stratification for pelvic surgery, p ossible OR. BRIEF CLINICAL HISTORY: This is a 81-year-old female with past medical history significant for statu s post pacemaker, status post hip fracture a year ago, status post total hip surgery, who fell down a nd sustained a fracture of the pelvis on the right side, being evaluated for operating room, apparent ly decided to be treated medically. The patient denies any chest pain, shortness of breath, any palp itation. PHYSICAL EXAMINATION: VITAL SIGNS: Temperature afebrile, heart rate 80, blood pressure 130/80. HEENT: PERRLA. Extraocular muscles intact. NECK: Supple. No carotid bruits. No thyromegaly. CHEST: Clear to auscultation. HEART: S1, S2 regular. ABDOMEN: Soft. EXTREMITIES: Clubbing and cyanosis negative. LABORATORY DATA: Blood workup pending as computer system is down. IMPRESSION AND PLAN: Status post fall, status post hip fracture, status post OR internal fixation a year ago, status post pacemaker. No evidence of acute coronary syndrome, no evidence of ischemia. T he patient is okay to go for surgery if required, but now patient is being treated medically. We patrick l follow with you. Thank you, Dr. Bernardo, for providing the opportunity in taking care of the patient. The computer sys tem is down, so progress note is being dictated from the top of the head. Yuridia Wayne MD cc: [id number] TT: 08/16/2016 16:42:51 Confirmation # [id number] Dictation # [id number] freida
[2016-08-16] MEDS ORDERED: Oxycodone/Acetaminophen 5/325 mg Tab ONE (17:35)
[2016-08-16 22:49] VITALS: RESP 18
--- NOTE | 2016-08-16 22:52 | PN ---
DATE: 08/16/2016 REFERRING PHYSICIAN: Dr. Bernardo. SUBJECTIVE: She is lying in the bed. No headache, no rhinitis, no cough, no sputum production, has right hip pain, tired of lying in one position. OBJECTIVE: GENERAL: No acute distress. VITAL SIGNS: Temperature is 99, heart rate 62, respiratory rate is 20, blood pressure 119/57, pulse ox 95% on room air. HEENT: Moist mucous membranes. Small oral cavity. NECK: Supple. No JVD. LUNGS: Has a fair airflow with few rhonchi. HEART: S1, S2. ABDOMEN: Soft, nontender. No organomegaly. EXTREMITIES: There is no edema. Right hip is tender to touch. NEUROLOGIC: Awake, alert, follows simple command. MEDICATIONS: She is on Colace 100 mg 3 times a day, 25 mg at bedtime, Dilaudid 0.5 mg q. 4 jj rs p.r.n., metoprolol tartrate 25 mg twice a day, Lovenox 40 mg daily, MiraLax 17 grams daily, Proton ix 40 mg daily, Synthroid 200 mcg daily, Ultram 50 mg 3 times a day p.r.n. LABORATORY DATA: Reviewed. Had echocardiogram, which shows the left ventricle is normal size, right ventricular systolic pressure is 42, has a valvular heart disease. IMPRESSION AND PLAN: Status post mechanical fall with superior and inferior rami fracture, history o f multiple myeloma, hypertension, history of cerebrovascular depression, history of bone marrow trans plant, cardiac arrhythmia requiring pacemaker, anemia and leukopenia. Pulmonary point of view, doing okay. She has pulmonary hypertension. Keep head elevated at 45 degrees. Sleep apnea precaution. Gastric prophylaxis, deep venous thrombosis prophylaxis, physical therapy to get her out of bed to ch air, has a normal weightbearing flexure. Thank you and I will follow with you. Yuridia Marquez MD cc: [id number] TT: 08/16/2016 22:51:51 Confirmation # [id number] Dictation # [id number] cn
[2016-08-17 09:21] VITALS: O2SAT 97
[2016-08-17] MEDS: Levothyroxine 200 MCG TAB PO SCH (10:03)
[2016-08-17] MEDS: Enoxaparin 40 mg Syringe SC SCH (10:03)
[2016-08-17] MEDS: Pantoprazole 40 mg EC Tab PO SCH (10:03)
[2016-08-17] MEDS: POLYETHYLENE GLYCOL 3350 17 GM/Dose PACKET PO SCH (10:04)
--- NOTE | 2016-08-17 11:43 | CP.PCM.PN ---
Subjective - Date & Time of Evaluation Date of Evaluation: 08/17/16 Time of Evaluation: 11:37 - Subjective Subjective: Spoke to daughter re: Plan of care, Per daughter, Kike Lutz, no surgery at this time. Her sister is coming from the [facility] Saturday and they will discuss the plan of care re: any further surgical intervention considering her Multiple Myeloma and comorbidities.. Pt will be transferred to [facility] for progressive p.t. Daughter will follow up with Dr Bernardo and Dr Godfrey re: plans for future surgery if they decide to proceed after family discussion next week. Relayed info to t Dr Godfrey via telphone. Tasneem Sanchez APN Objective - Vital Signs/Intake and Output Vital Signs (last 24 hours): Temp Pulse Resp BP Pulse Ox 98.3 F 59 L 18 119/64 97 08/17/16 08:00 08/17/16 08:00 08/17/16 08:00 08/17/16 08:00 08/17/16 08:00 Intake and Output: 08/17/16 08/17/16 06:59 18:59 Output Total 300 Balance -300 - Medications Medications: Current Medications Docusate Sodium (Colace) 100 mg PO TID [facility] Last Admin: 08/17/16 10:03 Dose: 100 mg Enoxaparin Sodium (Lovenox) 40 mg SC DAILY [facility] PRN Reason: Protocol Last Admin: 08/17/16 10:03 Dose: 40 mg Hydromorphone HCl (Dilaudid) 1 mg IVP Q4 PRN PRN Reason: Pain, severe (8-10) Levothyroxine Sodium (Synthroid) 200 mcg PO DAILY [facility] Last Admin: 08/17/16 10:03 Dose: 200 mcg Metoprolol Tartrate (Lopressor) 25 mg PO BID [facility] Last Admin: 08/17/16 10:03 Dose: 25 mg Oxycodone/Acetaminophen (Percocet 5/325 Mg Tab) 1 tab PO Q6 PRN PRN Reason: Pain, moderate (4-7) Stop: 08/19/16 14:01 Pantoprazole Sodium (Protonix Ec Tab) 40 mg PO ACB [facility] Last Admin: 08/17/16 10:03 Dose: 40 mg Polyethylene Glycol (Miralax) 17 gm PO DAILY [facility] Last Admin: 08/17/16 10:04 Dose: 17 gm Tramadol HCl (Ultram) 50 mg PO TID PRN PRN Reason: Pain, moderate (4-7) Last Admin: 08/15/16 14:40 Dose: 50 mg Trazodone HCl (Desyrel) 25 mg PO HS JONATHAN Last Admin: 08/16/16 21:33 Dose: 25 mg - Labs Labs: 08/15/16 07:00 08/15/16 07:00 PT 10.8 Seconds (9.9-11.8) 08/14/16 05:05 INR 1.00 (0.93-1.08) 08/14/16 05:05 APTT 26.0 Seconds (23.7-30.8) 08/14/16 05:05
[2016-08-17 12:40] LABS: HEMATOCRIT 28.5 % (36.0-48.0); MEAN CORPUSCULAR HEMOGLOBIN 33.6 pg (25.0-35.0); MEAN CORPUSCULAR HGB CONC 32.3 g/dl (31.0-37.0); WHITE BLOOD COUNT 3.5 10^3/ul (4.5-11.0)
[2016-08-17 15:49] VITALS: BP 124/57; PULSE 60; TEMP 98.8
[2016-08-17 17:11] LABS: ALB/GLOB RATIO 0.9 (1.1-1.8); ALKALINE PHOSPHATASE 70 U/L (38-133); ALT/SGPT 30 U/L (7-56); AST/SGOT 35 U/L (15-39); BILIRUBIN,TOTAL 0.7 mg/dL (0.2-1.3); BLOOD UREA NITROGEN 23 mg/dL (7-21); CALCIUM 8.6 mg/dL (8.4-10.5); CARBON DIOXIDE 31 mmol/L (21-33); CHLORIDE 101 mmol/L (95-110); GFR AFRICAN-AMERICAN > 60; GLUCOSE,RANDOM 95 mg/dL (70-110); PHOSPHOROUS 3.1 mg/dL (2.5-4.5); POTASSIUM 4.2 mmol/L (3.6-5.0); SODIUM 140 mmol/L (132-148); TOTAL PROTEIN 7.1 g/dL (5.8-8.3)
[2016-08-17 17:50] LABS: KAPPA/LAMBDA FREE RATIO 2.16 (0.26-1.65)
--- NOTE | 2016-08-17 20:12 | PN ---
DATE: 08/17/2016 FOLLOWUP: Preop risk stratification for pelvic surgery, possible OR, now patient is being treated me dically. BRIEF CLINICAL HISTORY: A 81-year-old female with past medical history significant for status post p acemaker, status post hip fracture year ago, status post fall and right pelvic fracture evaluated for OR, but now the patient is being treated medically, history of pacemaker. Denies any chest pain, sh ortness of breath, any palpitation. PHYSICAL EXAMINATION: VITAL SIGNS: Temperature afebrile, heart rate 60, blood pressure 124/57. HEENT: PERRLA. Extraocular muscles intact. NECK: Supple. No carotid bruits. No thyromegaly. CHEST: Clear to auscultation. HEART: S1, S2 regular. ABDOMEN: Soft. EXTREMITIES: Clubbing and cyanosis negative. BLOOD WORKUP: As follows: WBC 3.5, hemoglobin 9.2, however hematocrit 28.5, platelet count 124. Ch emistry shows sodium 130, potassium 3.0, chloride 103, carbon dioxide 30, anion gap of 10, BUN 20, cr eatinine 0.9. IMPRESSION: Status post fall, status post pelvic fracture, history of a hip fracture a year ago, sta tus post open reduction, internal fixation, status post permanent pacemaker, hypertension, ____ with acute coronary syndrome. The patient is now being treated medically. The patient's family does not want surgery at this time, we will treat medically for now. Continue aggressive medical treatment. We will follow with you. Continue DVT prophylaxis. Continue metoprolol, continue adequate analgesia . Will follow with you. Thank you, Dr. Bernardo for providing me the opportunity to care for this patient. Yuridia Wayne MD cc: [id number] TT: 08/17/2016 20:11:25 Confirmation # [id number] Dictation # [id number] cee
--- NOTE | 2016-08-17 20:45 | PN ---
DATE: 08/17/2016 REFERRING PHYSICIAN: Dr. Bernardo. SUBJECTIVE: The patient is lying in the bed, head at 45 degrees. Still has right hip and lower leg some pain. No cough, no sputum production. No nausea, no vomiting, no diarrhea. OBJECTIVE: GENERAL: In no acute distress. VITAL SIGNS: Temp is 98, heart rate is 60, respiratory rate is 18, blood pressure 124/57, pulse ox 9 7% on room air. HEENT: Moist mucous membranes. Crowded airway. NECK: Supple, no JVD. LUNGS: Has a fair airflow with a few rhonchi. HEART: S1, S2. ABDOMEN: Soft, nontender. No organomegaly. EXTREMITIES: Right hip tenderness, right knee some tenderness, and right leg no edema. NEUROLOGIC: Awake, alert, follows simple commands. MEDICATIONS: She is on Colace 100 mg 3 times a day, trazodone 25 mg at bedtime, metoprolol tartrate 25 mg twice a day, Lovenox 40 mg daily, MiraLax 17 grams daily, Percocet 5/325 one tab q.6 hours p.r. n., Protonix 40 mg daily, Synthroid 200 mcg daily, Tylenol p.r.n., Ultram 50 mg 3 times a day p.r.n. LABORATORY DATA: Reviewed. No new lab is available since yesterday. IMPRESSION AND PLAN: Status post mechanical fall with superior inferior rami fracture, history of mu ltiple myeloma, hypertension, cerebrovascular accident, history of bone marrow transplant, cardiac ar rhythmia requiring pacemaker, anemia and leukopenia, activities of daily living dysfunction. Nurse sejal cano on the floor note reviewed. Plan is hold off surgery for now, waiting for family member to arrive from the [facility]. Continue therapy. Gastric prophylaxis, deep venous thrombosis proph ylaxis. Out of bed to chair. Start therapy with of the right hip. Follow up labs in the [facility]. Thank you and will follow with you. Yuridia Marquez MD cc: [id number] TT: 08/17/2016 20:44:25 Confirmation # [id number] Dictation # [id number] dn
--- NOTE | 2016-08-28 08:32 | DS ---
The patient was seen and examined on the bedside. CHIEF COMPLAINT: Fall, pain in the right hip. HISTORY OF PRESENT ILLNESS: The patient is a 81-year-old female with past medical history of multiple myeloma, arthritis, history of shingles, came to the Emergency Room via EMS complaining of right-sided hip pain following a trip and fall prior to arrival. Denies any head trauma, loss of consciousness. Denies numbness and weakness of the hands or tingling sensation in the extremities. No fever, no chills. No hematuria, no hematochezia. We admitted the patient. Hip CAT scan done. Orthopedic consult called with Dr. Godfrey. He saw the patient. According to him, patient is not a candidate for surgery. Pain medication given. Physical therapy was started. The patient improved. Discharged to [facility] rehab for physical therapy. Will continue treatment there. PAST MEDICAL HISTORY: Left chest pacemaker, history of cerebrovascular accident , cataract surgery, anemia, history of blood transfusion, shingles, constipation. FAMILY HISTORY: Father and mother noncontributory. HABITS: Never smoked. No drugs, no ethanol. ALLERGIES: The patient is not allergic with any medications. HOME MEDICATIONS: Aspirin, Fosamax, vitamin D, cyanocobalamin, levothyroxine, potassium, trazodone, PHYSICAL EXAMINATION: VITAL SIGNS: Temperature 98.8, pulse 60, blood pressure 124/57, respiratory rate 18. HEAD: Normocephalic, atraumatic. Eyes: PERRLA. Extraocular muscles intact. Conjunctive are clear. Nose patent. Mucous membranes moist. NECK: Supple. No carotid bruit, JVD or thyromegaly. CHEST: Bilaterally symmetrical. HEART: S1, S2 positive. LUNGS: Clear to auscultation. ABDOMEN: Soft. Bowel sounds present. No organomegaly. EXTREMITIES: No edema, no cyanosis. NEUROLOGIC: The patient is awake, alert. Moving all 4 extremities. No focal deficits, but hip range of motion is decreased. LABORATORY DATA: White blood cells 3.5, hemoglobin 9.2, hematocrit 28.5, platelets 124. Sodium 140, potassium 4.2, BUN 23, creatinine 0.9. Hemoglobin A1c 5.2. ASSESSMENT AND PLAN: The patient is a 81-year-old lady with leukopenia, anemia , history of multiple myeloma, arthritis, hypothyroidism, status post mechanical fall with superior and inferior rami fracture, hypertension, history of cerebrovascular accident, history of bone marrow transplant, cardiac arrhythmias requiring pacemaker, is not able to eat yet, do her activities of daily living. Orthopedic consult called. Seen by Dr. Godfrey. GI and DVT prophylaxis. Transferring the patient to [facility] for rehab. Will follow up there. Sussy Bernardo MD cc: [id number] TT: 08/27/2016 07:55:48 daniel HANDLEY
== END 2016-08-17 18:18 | DRG 536 ==
LOC: ED 04:37 → ERH 07:03 → 5RSO 10:04
PROVIDERS: ADMIT Internal Medicine; ATTEND Internal Medicine
DX: S32.301A Unspecified fracture of right ilium, initial encounter for closed fracture (principal); I27.2 Other secondary pulmonary hypertension; Z94.81 Bone marrow transplant status; D64.9 Anemia, unspecified; B02.9 Zoster without complications; C90.01 Multiple myeloma in remission; W01.0XXA Fall on same level from slipping, tripping and stumbling without subsequent striking against object, initial encounter; D72.819 Decreased white blood cell count, unspecified; E03.9 Hypothyroidism, unspecified; I10 Essential (primary) hypertension; F32.89 Other specified depressive episodes; I25.10 Atherosclerotic heart disease of native coronary artery without angina pectoris; M81.0 Age-related osteoporosis without current pathological fracture; Z79.82 Long term (current) use of aspirin; Z79.83 Long term (current) use of bisphosphonates; Z86.19 Personal history of other infectious and parasitic diseases; Z86.73 Personal history of transient ischemic attack (TIA), and cerebral infarction without residual deficits; Z87.81 Personal history of (healed) traumatic fracture; Z95.0 Presence of cardiac pacemaker; M19.90 Unspecified osteoarthritis, unspecified site; R32 Unspecified urinary incontinence; R40.2412 Glasgow coma scale score 13-15, at arrival to emergency department; I35.2 Nonrheumatic aortic (valve) stenosis with insufficiency; Y92.008 Other place in unspecified non-institutional (private) residence as the place of occurrence of the external cause

== ENCOUNTER 2016-11-12 04:15 | Inpatient (IN) | payer MEDICARE, OTHER ==
[2016-11-12] MEDS ORDERED: Sodium Chloride 0.9% 1,000 ML IV STA ×2 (04:42→21:56)
--- NOTE | 2016-11-12 04:42 | ED PDOC ---
Arrival/HPI - General Historian: Patient - History of Present Illness Time/Duration: 4-6 hours Symptom Onset: Gradual Symptom Course: Worsening Context: Home <Rukhsana Taylor - Last Filed: 11/12/16 07:35> - Critical Care Critical Care Minutes: 90 minutes <ErikaJuan - Last Filed: 11/12/16 21:31> - General Chief Complaint: Abdominal Pain Time Seen by Provider: 11/12/16 04:19 - History of Present Illness Narrative History of Present Illness (Text): 11/12/16 04:42 81 y/o F with past medical history of Multiple myeloma, hypothyroidism, hypertension, depression, CVA, symptomatic bradycardia with pacemaker presents for N/V that began yesterday at 5 pm. Patient states that she vomited about 4- 5 times Nb/Nb. Patient also complains of abd pain, subjective fevers and shortness of breath that began a few hours ago. Patient recently had pelvic hip fx a few months ago and has been going through rehab for strength training. (Rukhsana Taylor) Past Medical History - Provider Review Nursing Documentation Reviewed: Yes - Travel History Have you recently traveled outside [place] w/in the past 3 mons?: No - Infectious Disease Hx of Infectious Diseases: None - Cardiac Hx Hypertension: No Other/Comment: L chest pacemaker - Neurological HX Cerebrovascular Accident: Yes - HEENT Hx HEENT Disorder: Yes (cerumen impaction, eyeglasses) Hx Cataracts: Yes (b/l sx with implants) - Endocrine/Metabolic Hx Diabetes Mellitus Type 1: No Hx Diabetes Mellitus Type 2: No - Hematological/Oncological Hx Blood Transfusions: Yes Hx Blood Transfusion Reaction: No Hx Cancer: Yes Hx Shingles: Yes Other/Comment: Multiple Myeloma - Integumentary Hx Dermatological Disorder: No Other/Comment: Shingles in the right groin area and right upper buttocks - Musculoskeletal/Rheumatological Hx Arthritis: Yes - Gastrointestinal Hx Gastrointestinal Disorders: Yes (consitpation) - Genitourinary/Gynecological Hx Genitourinary Disorders: No Hx Incontinence: Yes - Psychiatric Hx Psychophysiologic Disorder: No Hx Substance Use: No - Surgical History Other/Comment: L chest pacemaker - Anesthesia Hx Anesthesia: Yes Hx Anesthesia Reactions: No Hx Malignant Hyperthermia: No <Rukhsana Taylor - Last Filed: 11/12/16 07:35> Family/Social History - Physician Review Nursing Documentation Reviewed: Yes Family/Social History: Unknown Family HX Smoking Status: Never Smoked Hx Alcohol Use: No Hx Substance Use: No <Rukhsana Taylor - Last Filed: 11/12/16 07:35> Allergies/Home Meds <Rukhsana Taylor - Last Filed: 11/12/16 07:35> <Juan James - Last Filed: 11/12/16 21:31> Allergies/Adverse Reactions: Allergies No Known Allergies Allergy (Verified 11/12/16 04:40) Home Medications: Home Meds Medication Instructions Recorded Confirmed Aspirin [Aspirin Chewable] 81 mg PO DAILY 01/30/15 11/12/16 Lenalidomide [Revlimid] 10 mg PO DAILY 01/30/15 11/12/16 Alendronate Sodium/Vitamin D3 70 mg PO QWK 09/21/15 11/12/16 [Fosamax Plus D 70 mg-2,800 Iu] Carbamide Peroxide [Debrox Ear 5 drop OT BID 09/21/15 11/12/16 Drops] Cholecalciferol (Vitamin D3) 50,000 unit PO QWK 09/21/15 11/12/16 [D3-50] Cyanocobalamin [Vitamin B12 1000 1,000 mcg PO DAILY 09/21/15 11/12/16 mcg Tab] Levothyroxine Sodium [Synthroid] 200 mcg PO DAILY 09/21/15 11/12/16 Potassium Chloride [K-Dur 20 mEq 20 meq PO DAILY 09/21/15 11/12/16 ER Tab] traZODone [Desyrel] 25 mg PO HS 09/21/15 11/12/16 Review of Systems - Review of Systems Constitutional: Fevers Eyes: Normal. absent: Vision Changes, Photophobia ENT: Normal. absent: Sore Throat, Rhinorrhea, Sinus Congestion Respiratory: SOB. absent: Cough, Sputum, Wheezing Cardiovascular: Normal. absent: Chest Pain, Palpitations, Edema, Calf Pain Gastrointestinal: Abdominal Pain, Nausea, Vomiting. absent: Stool Changes, Constipation, Diarrhea, Appetite Changes, Hematochezia, Hematemesis Genitourinary Female: Normal. absent: Dysuria, Frequency, Hematuria Musculoskeletal: Normal. absent: Arthralgias, Back Pain, Neck Pain Skin: Normal. absent: Rash, Pruritis, Skin Lesions, Laceration Neurological: Normal. absent: Headache, Dizziness Endocrine: Normal. absent: Diaphoresis, Polyuria Hemo/Lymphatic: Normal. absent: Adenopathy, Easy Bleeding Psychiatric: Normal. absent: Anxiety, Depression <BrandonRukhsana - Last Filed: 11/12/16 07:35> Physical Exam Vital Signs Reviewed: Yes Temperature: Afebrile Blood Pressure: Normal Pulse: Regular Respiratory Rate: Normal Appearance: Positive for: Well-Appearing, Non-Toxic, Comfortable Pain Distress: Mild Mental Status: Positive for: Alert and Oriented X 3 - Systems Exam Head: Present: Atraumatic, Normocephalic Extroacular Muscles: Present: EOMI Mouth: Present: Moist Mucous Membranes Respiratory/Chest: Present: Clear to Auscultation, Good Air Exchange. No: Respiratory Distress, Accessory Muscle Use, Wheezes, Rales, Rhonchi Cardiovascular: Present: Regular Rate and Rhythm, Normal S1, S2. No: Murmurs, Rub, Gallop, Muffled Abdomen: Present: Tenderness (RUQ), Normal Bowel Sounds. No: Distention, Peritoneal Signs, Rebound, Guarding Lower Extremity: Present: Normal Inspection, NORMAL PULSES. No: Edema, CALF TENDERNESS Neurological: Present: GCS=15 Skin: Present: Warm, Dry, Normal Color. No: Rashes Psychiatric: Present: Alert, Oriented x 3, Normal Insight, Normal Concentration <BrandonRukhsana - Last Filed: 11/12/16 07:35> Medical Decision Making - Lab Interpretations I have reviewed the lab results: Yes - RAD Interpretation Mail Processing Machine Operator: ED Physician - EKG Interpretation Interpreted by ED Physician: Yes Type: 12 lead EKG <Rukhsana Taylor - Last Filed: 11/12/16 07:35> <Juan James - Last Filed: 11/12/16 21:31> ED Course and Treatment: 11/12/16 04:52 81 y/o F presents for N/V abd pain Will check CBC, CMP, lipase, cardiac iso, EKG, CXR, CT of abd/pelvis, LE US Patient will be given 1 L NS bolus and zofran 11/12/16 05:28 Patient is noted to have a temperature of 102. Will order VBG with lactate and UA. Patient given morphine for pain. Patient is currently on Revlimid for MM. Therefore, will treat patient with Zosyn. 11/12/16 06:00 WBC count is noted to be 2.2 temp of 102. Troponin is 0.12. Will repeat EKG. Code sepsis is called on pt at 6:00 am. Patient is started on fluid resuscitation. Dr. Arroyo the galley stripper is contacted. recommends central line placement and pressors if patient remains hypotensive. Dr. Huerta 11/12/16 07:36 Patient is continuously hypotensive. Right femoral line placed. 11/12/16 07:[address] James [address] Dr. Bernardo who accepts patient under her service. 11/12/16 07:42 Patient will be started on dopamine (Rukhsana Taylor) Impression: Pt seen and evaluated with medical attendant. Pt, whose past medical history inludes multiple myeloma, hypertension, hypothyroidism, depression, and CVA, presented for nausea, vomiting, abdominal pain, subjective fever, and shortness of breath since 17:00. Aware and agree with HPI, clinical findings, plan, and management. Plan: -- CT Abdomen and Pelvis with IV contrast -- EKG -- Chest X-ray -- US Duplex Lower Extremities -- IV fluids -- Zofran -- Reassess and disposition 11/12/16 06:00 Code Sepsis called. Pt febrile, lactate:2.2, WBC: 2.2, and troponin: 0.17. ( Juan James) - Lab Interpretations Narrative Lab Interpretation (Text): 11/12/16 06:14 WBC 2.2 Lactic acid 2.1 troponin .12 K 2.8 (Brandon,Rukhsana) Lab Results: 11/12/16 05:00 11/12/16 05:00 Lab Results 11/12/16 07:10: Urine Color Yellow, Urine Appearance Cloudy, Urine pH 6.0, Ur Specific [place] 1.020, Urine Protein 100 H, Urine Glucose (UA) Negative, Urine Ketones Negative, Urine Blood Moderate H, Urine Nitrate Positive H, Urine Bilirubin Negative, Urine Urobilinogen 0.2, Ur Leukocyte Esterase Small H, Urine RBC 1 - 3, Urine WBC 15 - 20, Ur Epithelial Cells 0 - 2, Urine Bacteria Many 11/12/16 05:00: pO2 106 H, VBG pH 7.42, VBG pCO2 41.0, VBG HCO3 26.6, VBG Total CO2 27.9, VBG O2 Sat (Calc) 98.4 H, VBG Base Excess 1.9, VBG Potassium 2.8 L, Sodium 140.0, Chloride 105.0, Glucose 107 H, Lactate 2.1, FiO2 21.0, Venous Blood Potassium 2.8 L 11/12/16 05:00: Sodium 137, Chloride 102, Potassium 2.8 L* D, Carbon Dioxide 25 , Anion Gap 13, BUN 14, Creatinine 0.9, Est GFR ( Amer) > 60, Est GFR ( Non-Af Amer) > 60, Random Glucose 99, Calcium 8.2 L, Total Bilirubin 1.4 H, Direct Bilirubin 0.7 H, AST 41 H, ALT 37, Alkaline Phosphatase 90, Lactate Dehydrogenase 341, Total Creatine Kinase 42, Troponin I 0.17 H* D, Total Protein 6.2, Albumin 3.2, Globulin 3.1, Albumin/Globulin Ratio 1.0 L, Lipase 90 11/12/16 05:00: WBC 2.2 L* D, RBC 2.76 L, Hgb 8.7 L, Hct 26.6 L, MCV 96.4, MCH 31.5, MCHC 32.7, RDW 16.5 H, Plt Count 125, MPV 8.6 - RAD Interpretation Radiology Orders: 11/12/16 ABDOMEN COMPLETE [US] Stat 11/12/16 04:41 CHEST PORTABLE [RAD] Stat 11/12/16 04:47 ABD & PELVIS IV CONTRAST ONLY [CT] Stat 11/12/16 04:48 DUPLEX LOWER EXTRM VEIN BILAT [US] Stat - EKG Interpretation EKG Interpretation (Text): 11/12/16 05:39 electronic pacemaker HR of 61. Normal axis and normal interval 11/12/16 06:24 Repeat EKG shows electronic atrial pacemaker HR of 61. No St changes, normal axis and normal intervals (Karim,Rukhsana) - Medication Orders Current Medication Orders: Acetaminophen (Tylenol 325mg Tab) 650 mg PO Q6H PRN PRN Reason: Fever >100.4 F Last Admin: 11/12/16 13:15 Dose: 650 mg Aspirin (Aspirin Chewable) 81 mg PO DAILY [facility] Last Admin: 11/12/16 09:31 Dose: 81 mg Cyanocobalamin (Vitamin B12 1000 Mcg Tab) 1,000 mcg PO DAILY JONATHAN Last Admin: 11/12/16 09:53 Dose: 1,000 mcg Docusate Sodium (Colace) 100 mg PO TID JONATHAN Last Admin: 11/12/16 19:32 Dose: Not Given Non-Admin Reason: NPO Enoxaparin Sodium (Lovenox) 50 mg SC Q12H JONATHAN PRN Reason: Protocol Vancomycin HCl (Vancomycin 1gm) 1 gm in 250 mls @ 167 mls/hr IVPB Q12H JONATHAN PRN Reason: Protocol Last Admin: 11/12/16 09:15 Dose: 167 mls/hr Meropenem 1g/NS 100mL IVPB (Meropenem 1g/Ns 100ml Ivpb) 1 gm in 100 mls @ 100 mls/hr IVPB Q8 JONATHAN PRN Reason: Protocol Stop: 11/19/16 08:31 Last Admin: 11/12/16 13:05 Dose: 100 mls/hr NOREPINEPHRINE BIT/0.9 % NACL (Levophed 4 Mg/ 250 Ml Ns Premixed) 4 mg in 250 mls @ 9.375 mls/hr IV .Q24H PRN; Protocol; 2.5 MCG/MIN PRN Reason: TITRATE PER MD ORDER Levothyroxine Sodium (Synthroid) 200 mcg PO DAILY [facility] Last Admin: 11/12/16 09:54 Dose: 200 mcg Lidocaine (Lidoderm) 1 ea TD DAILY [facility] Last Admin: 11/12/16 09:30 Dose: 1 ea Non-Formulary Medication (Cholecalciferol (Vitamin D3) [D3-50]) 50,000 unit PO QWK [facility] Last Admin: 11/12/16 10:36 Dose: Non-Formulary Medication (Lenalidomide [Revlimid]) 10 mg PO DAILY [facility] Last Admin: 11/12/16 10:36 Dose: Potassium Chloride (K-Dur 20 Meq Er Tab) 20 meq PO DAILY JONATHAN Last Admin: 11/12/16 09:31 Dose: 20 meq Discontinued Medications Acetaminophen (Tylenol 325mg Tab) 650 mg PO STAT STA Stop: 11/12/16 05:14 Last Admin: 11/12/16 05:30 Dose: 650 mg Albumin Human (Albumin Human 25% (12.5 Gm/50 Ml)) 12.5 gm IV ONCE ONE Stop: 11/12/16 15:31 Last Admin: 11/12/16 16:33 Dose: 12.5 gm Enoxaparin Sodium (Lovenox) 50 mg SC STAT STA PRN Reason: Protocol Stop: 11/12/16 11:16 Last Admin: 11/12/16 11:53 Dose: 50 mg Sodium Chloride (Sodium Chloride 0.9%) 1,000 mls @ 999 mls/hr IV .Q1H1M STA Stop: 11/12/16 05:42 Last Admin: 11/12/16 05:30 Dose: 999 mls/hr Piperacillin Sod/Tazobactam Sod (Zosyn 3.375 In Ns 100ml) 100 mls @ 200 mls/hr IVPB STAT STA PRN Reason: Protocol Stop: 11/12/16 06:18 Last Admin: 11/12/16 06:10 Dose: 200 mls/hr Potassium Chloride (Potassium Chloride 20 Meq/100 Ml) 20 meq in 100 mls @ 50 mls/hr IVPB Q2H JONATHAN Stop: 11/12/16 09:59 Last Admin: 11/12/16 09:30 Dose: 50 mls/hr Sodium Chloride 1,360 ml/ IV (SUPPLIES) 1,360 mls @ 2,721.54 mls/hr IV ONCE ONE PRN Reason: 60 ML/KG/HR Stop: 11/12/16 06:07 Last Admin: 11/12/16 06:10 Dose: 2,721.54 mls/hr Dopamine HCl/Dextrose (Dopamine 400mg/250ml D5w) 400 mg in 250 mls @ 3.402 mls/ hr IV .Q24H PRN; Protocol; 2 MCG/KG/MIN PRN Reason: TITRATE PER MD ORDER Meropenem 1g/NS 100mL IVPB (Meropenem 1g/Ns 100ml Ivpb) 1 gm in 100 mls @ 100 mls/hr IVPB Q8 JONATHAN PRN Reason: Protocol Potassium Chloride (Potassium Chloride 20 Meq/100 Ml) 20 meq in 100 mls @ 50 mls/hr IVPB ONCE ONE Stop: 11/12/16 16:08 Last Admin: 11/12/16 16:42 Dose: 50 mls/hr Sodium Chloride (Sodium Chloride 0.9%) 2,000 mls @ 999 mls/hr IV .Q2H1M STA Stop: 11/12/16 16:45 Last Admin: 11/12/16 16:40 Dose: 999 mls/hr NOREPINEPHRINE BIT/0.9 % NACL (Levophed 4 Mg/ 250 Ml Ns Premixed) 4 mg in 250 mls @ 37.5 mls/hr IV .Q6H40M PRN; Protocol; 10 MCG/MIN PRN Reason: TITRATE PER MD ORDER Last Admin: 11/12/16 16:35 Dose: 5 mcg/min, 18.75 mls/hr Iohexol (Omnipaque 350 100 Ml) Confirm Administered Dose 350 mg .ROUTE .STK-MED ONE Stop: 11/12/16 08:30 Levothyroxine Sodium (Synthroid) 200 mcg PO DAILY JONATHAN Morphine Sulfate (Morphine) 2 mg IVP STAT STA Stop: 11/12/16 05:19 Last Admin: 11/12/16 05:31 Dose: 2 mg Ondansetron HCl (Zofran Inj) 4 mg IVP STAT STA Stop: 11/12/16 04:43 Last Admin: 11/12/16 05:32 Dose: 4 mg Pneumococcal Polyvalent Vaccine (Pneumovax 23 Vaccine) 0.5 ml IM .ONCE ONE Stop: 11/12/16 15:21 Last Admin: 11/12/16 16:36 Dose: Trazodone HCl (Desyrel) 25 mg PO HS [facility] Procedures - Central Line Central Line Lumen: triple Central Line Procedure: betadine prep, sterile drapes applied, sterile dressing applied Central Line Postion: femoral (R) Anesthesia: Lidocaine cc's of anesthesia: 3 Complications: none Central Line Post Position: sutured, good blood return <Rukhsana Taylor - Last Filed: 11/12/16 07:35> - PA / PUNCH PRESS OPERATOR / Resident Statement TERESA has reviewed & agrees with the documentation as recorded. TERESA has examined the patient and agrees with the treatment plan. <Juan James - Last Filed: 11/12/16 21:31> Disposition/Present on Arrival - Present on Arrival Any Indicators Present on Arrival: No History of DVT/PE: No History of Uncontrolled Diabetes: No Urinary Catheter: No History Surgical Site Infection Following: None - Disposition Have Diagnosis and Disposition been Completed?: Yes Disposition Time: 07:42 Patient Plan: Admission <Rukhsana Taylor - Last Filed: 11/12/16 07:35> <Juan James - Last Filed: 11/12/16 21:31> - Disposition Diagnosis: Sepsis, Abdominal pain, Hypokalemia Disposition: HOSPITALIZED Patient Problems: Current Active Problems Problem Status Onset Abdominal pain Acute Hypokalemia Acute Sepsis Acute Condition: GUARDED
[2016-11-12] MEDS ORDERED: Morphine 2 mg/ml ISec IVP STA (05:18)
[2016-11-12 05:30] LABS: VENOUS BLOOD GAS BASE EXCESS 1.9 mmol/L (0.0-2.0); VENOUS BLOOD PH 7.42 (7.32-7.43)
[2016-11-12 05:32] LABS: HEMATOCRIT 26.6 % (36.0-48.0); MEAN CELL VOLUME 96.4 fl (80.0-105.0); MEAN CORPUSCULAR HEMOGLOBIN 31.5 pg (25.0-35.0); MEAN CORPUSCULAR HGB CONC 32.7 g/dl (31.0-37.0); MEAN PLATELET VOLUME 8.6 fl (7.0-11.0); RED CELL DISTRIBUTION WIDTH 16.5 % (11.5-14.5)
[2016-11-12 05:42] LABS: ALKALINE PHOSPHATASE 90 U/L (38-133); ALT/SGPT 37 U/L (7-56); AST/SGOT 41 U/L (15-39); BILIRUBIN,TOTAL 1.4 mg/dL (0.2-1.3); BLOOD UREA NITROGEN 14 mg/dL (7-21); CALCIUM 8.2 mg/dL (8.4-10.5); CARBON DIOXIDE 25 mmol/L (21-33); CHLORIDE 102 mmol/L (98-107); GFR AFRICAN-AMERICAN > 60; GLUCOSE,RANDOM 99 mg/dL (70-110); LIPASE 90 U/L (23-300); SODIUM 137 mmol/L (132-148); TOTAL PROTEIN 6.2 g/dL (5.8-8.3)
[2016-11-12 05:46] LABS: WHITE BLOOD COUNT 2.2 10^3/ul (4.5-11.0)
[2016-11-12] MEDS ORDERED: Piperacillin/Tazobact 3.375 gm 100 ML IVPB STA (05:49)
[2016-11-12] MEDS ORDERED: Potassium Chloride 20 mEq ER Tab PO STA (05:57)
[2016-11-12 05:59] LABS: POTASSIUM 2.8 mmol/L (3.6-5.0)
[2016-11-12 06:00] LABS: TROPONIN I 0.17 ng/mL
[2016-11-12 06:48] LABS: BILIRUBIN,DIRECT 0.7 mg/dL (0.0-0.4)
[2016-11-12 07:33] LABS: URINE BILIRUBIN NEGATIVE (NEGATIVE); URINE BLOOD MODERATE (NEGATIVE); URINE GLUCOSE (UA) NEGATIVE (NEGATIVE); URINE KETONE NEGATIVE (NEGATIVE); URINE LEUKOCYTE ESTERASE SMALL Leu/uL (NEGATIVE); URINE PROTEIN 100 mg/dL (<30 mg/dL); URINE UROBILINOGEN 0.2 E.U./dL (<1 E.U./dL)
[2016-11-12 07:34] LABS: URINE APPEARANCE CLOUDY (CLEAR); URINE COLOR YELLOW (YELLOW)
[2016-11-12 07:40] LABS: URINE WBC 15 - 20 /hpf (0-6)
[2016-11-12 07:41] LABS: URINE BACTERIA MANY (NEG); URINE EPITHELIAL CELLS 0 - 2 /hpf (0-5)
[2016-11-12] MEDS ORDERED: DOPamine 400mg/250ml D5W 400 MG/250 ML BAG IV PRN (07:42)
--- NOTE | 2016-11-12 08:03 | RAD ---
HISTORY: shortness of breath COMPARISON: KeyNo prior. FINDINGS: LUNGS: No active pulmonary disease. PLEURA: No significant pleural effusion identified, no pneumothorax apparent. CARDIOVASCULAR: No radiographic findings to suggest acute or significant cardiovascular disease. Position/ configuration of pacemaker device: Satisfactory. OSSEOUS STRUCTURES: No significant abnormalities. VISUALIZED UPPER ABDOMEN: Normal. OTHER FINDINGS: None. IMPRESSION: No active disease. No significant interval change compared to the prior examination(s).
[2016-11-12] MEDS ORDERED: Iohexol 350 MG/100 ML VIAL ONE (08:29)
[2016-11-12] MEDS ORDERED: Meropenem 1g/NS 100mL IVPB 100 ML IVPB SCH (08:30)
[2016-11-12] MEDS ORDERED: Vancomycin 1gm in NS 250ml 250 ML IVPB SCH (08:30)
--- NOTE | 2016-11-12 09:12 | CT ---
PROCEDURE: CT Abdomen and Pelvis with contrast HISTORY: abd pain COMPARISON: None. TECHNIQUE: Contrast dose: 100 cc of Omni 350 Radiation dose: Total exam DLP = 223 mGy-cm. This CT exam was performed using one or more of the following dose reduction techniques: Automated exposure control, adjustment of the mA and/or kV according to patient size, and/or use of iterative reconstruction technique. FINDINGS: LOWER THORAX: Unremarkable. LIVER: Unremarkable. No gross lesion or ductal dilatation. GALLBLADDER AND BILE DUCTS: There is some fluid surrounding the gallbladder which raises the possibility of cholecystitis. There is no significant gallbladder wall thickening. A small stone is seen PANCREAS: Unremarkable. No gross lesion or ductal dilatation. SPLEEN: Unremarkable. ADRENALS: Unremarkable. No mass. KIDNEYS AND URETERS: 13 mm stone in the lower pole of the left kidney VASCULATURE: Unremarkable. No aortic aneurysm. BOWEL: Mild inflammatory changes are seen in the mesentery adjacent to the descending colon consistent with mild diverticulitis. There is also mural thickening in the sigmoid colon consistent with diverticular disease. APPENDIX: Normal appendix. PERITONEUM: Unremarkable. No free fluid. No free air. LYMPH NODES: Unremarkable. No enlarged lymph nodes. BLADDER: Unremarkable. REPRODUCTIVE: Unremarkable. BONES: Comminuted right-sided pelvic fractures are again demonstrated. These were seen on the studies dated 08/14/2016 OTHER FINDINGS: None. IMPRESSION: Mild diverticulitis in the descending colon. Fluid surrounding the gallbladder. Possible cholecystitis. Recent right-sided pelvic fractures showing minimal healing
[2016-11-12] MEDS: Vancomycin 1gm in NS 250ml 1 GM/250 ML BAG IVPB SCH ×2 (09:15→21:51)
--- NOTE | 2016-11-12 09:19 | CP.CCUPN ---
CCU Subjective - Physician Review Events Since Last Encounter (Free Text): 11/12/16 09:15 81 y/o F for which I was called to evaluate for Sepsis Overnight she presented with fevers, chills and was found to havelow BP in the ER. After 2.5 L of N.S and ABX given in the first hour she improved quickly Currently asymptomatic and is feeling much better. CCU Objective - Vital Signs / Intake & Output Vital Signs (Last 4 hours): Vital Signs Temp Pulse Resp BP Pulse Ox 11/12/16 08:52 98.4 F 64 18 93/48 L 98 - Physical Exam Head: Positive for: Atraumatic, Normocephalic Extroacular Muscles: Positive for: EOMI Mouth: Positive for: Moist Mucous Membranes Pharnyx: Positive for: Normal Neck: Positive for: Normal Range of Motion Respiratory/Chest: Positive for: Clear to Auscultation, Good Air Exchange. Negative for: Respiratory Distress, Accessory Muscle Use, Wheezes, Rales, Rhonchi Cardiovascular: Positive for: Regular Rate and Rhythm, Normal S1, S2. Negative for: Murmurs, Rub, Gallop, Muffled Abdomen: Positive for: Normal Bowel Sounds. Negative for: Distention, Peritoneal Signs, Rebound, Guarding Upper Extremity: Positive for: Normal Inspection Lower Extremity: Positive for: Normal Inspection, NORMAL PULSES. Negative for: Edema, CALF TENDERNESS Neurological: Positive for: GCS=15, CN II-XII Intact Skin: Positive for: Warm, Dry, Normal Color. Negative for: Rashes Psychiatric: Positive for: Alert, Oriented x 3, Normal Insight, Normal Concentration - Medications Active Medications: Active Medications Generic Name Dose Route Start Last Admin Trade Name Freq PRN Reason Stop Dose Admin Aspirin 81 mg 11/12/16 10:00 Aspirin Chewable PO DAILY JONATHAN Cyanocobalamin 1,000 mcg 11/12/16 10:00 Vitamin B12 1000 Mcg Tab PO DAILY JONATHAN Docusate Sodium 100 mg 11/12/16 10:00 Colace PO TID JONATHAN Potassium Chloride 20 meq in 100 mls @ 50 mls/hr 11/12/16 06:00 11/12/16 07: 26 Potassium Chloride 20 Meq/100 Ml IVPB 11/12/16 09:59 50 mls/hr Q2H JONATHAN Administration Dopamine HCl/Dextrose 400 mg in 250 mls @ 3.402 mls/hr 11/12/16 07:42 Dopamine 400mg/250ml D5w IV .Q24H PRN TITRATE PER MD ORDER Protocol 2 MCG/KG/MIN Vancomycin HCl 1 gm in 250 mls @ 167 mls/hr 11/12/16 08:45 Vancomycin 1gm IVPB Q12H JONATHAN Protocol Meropenem 1g/NS 100mL IVPB 1 gm in 100 mls @ 100 mls/hr 11/12/16 14:00 Meropenem 1g/Ns 100ml Ivpb IVPB 11/19/16 08:31 Q8 JONATHAN Protocol Levothyroxine Sodium 200 mcg 11/12/16 10:00 Synthroid PO DAILY JONATHAN Lidocaine 1 ea 11/12/16 10:00 Lidoderm TD DAILY JONATHAN Non-Formulary Medication 50,000 unit 11/12/16 10:00 Cholecalciferol (Vitamin D3) [D3-50] PO QWK JONATHAN Non-Formulary Medication 10 mg 11/12/16 10:00 Lenalidomide [Revlimid] PO DAILY JONATHAN Potassium Chloride 20 meq 11/12/16 10:00 K-Dur 20 Meq Er Tab PO DAILY JONATHAN Trazodone HCl 25 mg 11/12/16 22:00 Desyrel PO HS JONATHAN Review of Systems - EENT Eyes: UNREMARKABLE Ears: UNREMARKABLE Nose/Mouth/Throat: UNREMARKABLE - Breasts Breasts: UNREMARKABLE - Cardiovascular Cardiovascular: UNREMARKABLE - Respiratory Respiratory: UNREMARKABLE - Gastrointestinal Gastrointestinal: Vomiting - Genitourinary Genitourinary: UNREMARKABLE - Musculoskeletal Musculoskeletal: UNREMARKABLE Assessment/Plan - Assessment and Plan (Free Text) Assessment: 72 y/o F w/ SIRS Found to have Hypotension that resolved after 30ml/kg IV fluids given. Abx given in the 1st 1 hr. vancomycin and Zosyn. Now on Meropenum. Blood cx, urine cx sent. Abd exam benign , no Blevins sign. Ct abd seen by me, possible GB distention and fluid w/ Mild elevated T.Bili. Would need US GB and GI consult. Urine shows UTI. If any further worsening,Please call back the ICU if needed. Thanks
[2016-11-12] MEDS: Lidocaine 5% Patch TD SCH (09:30)
[2016-11-12] MEDS: Potassium Chloride 20 mEq ER Tab PO SCH (09:31)
[2016-11-12] MEDS: Levothyroxine 200 MCG TAB PO SCH (09:54)
[2016-11-12] MEDS ORDERED: CHOLECALCIFEROL 50000 UNIT PO SCH (10:00)
[2016-11-12] MEDS ORDERED: cefTRIAXone 1 gm 1 GM/100 ML BAG IVPB SCH (10:00)
[2016-11-12] MEDS ORDERED: Levothyroxine 88 MCG TAB PO SCH (10:00)
[2016-11-12] MEDS ORDERED: LENALIDOMIDE 10 MG PO SCH (10:00)
[2016-11-12] MEDS: CHOLECALCIFEROL 50000 UNIT PO SCH (10:36)
[2016-11-12] MEDS: LENALIDOMIDE 10 MG PO SCH (10:36)
[2016-11-12 10:43] LABS: VENOUS BLOOD GAS BASE EXCESS -6.1 mmol/L (0.0-2.0); VENOUS BLOOD PH 7.21 (7.32-7.43)
[2016-11-12] MEDS ORDERED: Enoxaparin 60 mg Syringe SC STA (11:15)
[2016-11-12] MEDS: Meropenem 1g/NS 100mL IVPB 1 GM/100 ML PIGGYBACK IVPB SCH ×2 (13:05→21:53)
[2016-11-12] MEDS ORDERED: Meropenem 1g/NS 100mL IVPB 1 GM/100 ML PIGGYBACK IVPB SCH (14:00)
[2016-11-12] MEDS ORDERED: Sodium Chloride 0.9% 2,000 ML IV STA (14:45)
[2016-11-12 15:19] VITALS: BMI 20.2
[2016-11-12] MEDS ORDERED: Pneumococcal 23-Valent Vaccine IM ONE (15:20)
[2016-11-12] MEDS ORDERED: NOREPINEPHRINE BIT/0.9 % NACL 4 MG/250 ML BAG IV PRN ×2 (15:28→19:48)
[2016-11-12] MEDS ORDERED: Albumin Human 25% (12.5 gm/50 ml) IV ONE (15:30)
[2016-11-12 15:33] LABS: ARTERIAL BLOOD GAS HCO3 17.8 mmol/L (21-28); ARTERIAL BLOOD GAS O2 CAPACITY 10.9 mL/dl (16-24); ARTERIAL BLOOD GAS O2 CONTENT 8.3 ML/dl (15-23); ARTERIAL BLOOD GAS PH 7.34 (7.35-7.45); ARTERIAL BLOOD HGB O2 SAT 75.2 % (95.0-98.0); CARBOXYHEMOGLOBIN 1.4 % (0.5-1.5); HHB 23.5 % (0-5)
[2016-11-12 15:37] LABS: MEAN CELL VOLUME 98.3 fl (80.0-105.0); MEAN CORPUSCULAR HEMOGLOBIN 31.5 pg (25.0-35.0); MEAN CORPUSCULAR HGB CONC 32.1 g/dl (31.0-37.0); MEAN PLATELET VOLUME 8.5 fl (7.0-11.0); RED CELL DISTRIBUTION WIDTH 16.8 % (11.5-14.5); WHITE BLOOD COUNT 4.3 10^3/ul (4.5-11.0)
--- NOTE | 2016-11-12 15:37 | PCM.SEPTIC ---
<COURTNEY VALLADARES - Last Filed: 11/12/16 15:35> Sepsis Progress Note - Reassessment Type Date of Evaluation: 11/12/16 Time of Evaluation: 12:55 Reassessment Type: Non-invasive reassessment - Non Invasive Reassessment Were the most recent vital sign reviewed: Yes Vital Sign (Latest): Temp Pulse Resp BP Pulse Ox 101.7 F H 65 18 119/52 L 95 11/12/16 14:40 11/12/16 14:40 11/12/16 14:40 11/12/16 14:40 11/12/16 12:24 Cardiovascular: Yes: Regular Rate, Rhythm. No: Bradycardia, Tachycardia, Irregularly Irregular Respiratory: Yes: Crackles (Bibasilar) Capillary Refill: Delayed Pulses: Normal Radial, Normal Dorsalis Pedis, Normal Posterior Tibialis Skin: Normal Color, Warm, Dry <Maddy Medina - Last Filed: 11/12/16 18:08> Sepsis Progress Note - Non Invasive Reassessment Vital Sign (Latest): Temp Pulse Resp BP Pulse Ox 101.7 F H 64 22 106/62 100 11/12/16 14:40 11/12/16 16:45 11/12/16 16:45 11/12/16 16:45 11/12/16 16:45 Attending/Attestation - Attestation I have personally seen and examined this patient.: Yes I have fully participated in the care of the patient.: Yes I have reviewed all pertinent clinical information, including history, physical exam and plan: Yes Notes (Text): 11/12/16 18:08 as noted above
[2016-11-12 15:40] LABS: VENOUS BLOOD GAS BASE EXCESS -6.1 mmol/L (0.0-2.0); VENOUS BLOOD PH 7.34 (7.32-7.43)
--- NOTE | 2016-11-12 15:42 | CP.PCM.PN ---
<COURTNEY VALLADARES - Last Filed: 11/12/16 16:11> Subjective - Date & Time of Evaluation Date of Evaluation: 11/12/16 Time of Evaluation: 15:07 - Subjective Subjective: RAPID RESPONSE NOTE: Rapid response was called at 1537 for hypotension. Rapid Response team responded immediately. Nursing found patients BP to be 60/33mmHg taken manually despite receiving four 1L boluses since presenting to the ED. Vital signs were measured and noted in this note. Patient was noted to have NSR at 60bpm on the playground monitor and this was a paced beat. Patient was given a one liter bolus of normal saline, routine labs (CBC, CMP, ABG and Tropinin) were drawn, and a repeat chest xray was ordered. Objective - Vital Signs/Intake and Output Vital Signs (last 24 hours): Temp Pulse Resp BP Pulse Ox 99.4 F H 60 18 74/29 L 95 11/12/16 15:07 11/12/16 15:07 11/12/16 15:07 11/12/16 15:07 11/12/16 15:07 - Medications Medications: Current Medications Acetaminophen (Tylenol 325mg Tab) 650 mg PO Q6H PRN PRN Reason: Fever >100.4 F Last Admin: 11/12/16 13:15 Dose: 650 mg Aspirin (Aspirin Chewable) 81 mg PO DAILY [facility] Last Admin: 11/12/16 09:31 Dose: 81 mg Cyanocobalamin (Vitamin B12 1000 Mcg Tab) 1,000 mcg PO DAILY [facility] Last Admin: 11/12/16 09:53 Dose: 1,000 mcg Docusate Sodium (Colace) 100 mg PO TID [facility] Last Admin: 11/12/16 09:31 Dose: 100 mg Vancomycin HCl (Vancomycin 1gm) 1 gm in 250 mls @ 167 mls/hr IVPB Q12H JONATHAN PRN Reason: Protocol Last Admin: 11/12/16 09:15 Dose: 167 mls/hr Meropenem 1g/NS 100mL IVPB (Meropenem 1g/Ns 100ml Ivpb) 1 gm in 100 mls @ 100 mls/hr IVPB Q8 JONATHAN PRN Reason: Protocol Stop: 11/19/16 08:31 Last Admin: 11/12/16 13:05 Dose: 100 mls/hr Potassium Chloride (Potassium Chloride 20 Meq/100 Ml) 20 meq in 100 mls @ 50 mls/hr IVPB ONCE ONE Stop: 11/12/16 16:08 Sodium Chloride (Sodium Chloride 0.9%) 2,000 mls @ 999 mls/hr IV .Q2H1M STA Stop: 11/12/16 16:45 NOREPINEPHRINE BIT/0.9 % NACL (Levophed 4 Mg/ 250 Ml Ns Premixed) 4 mg in 250 mls @ 37.5 mls/hr IV .Q6H40M PRN; Protocol; 10 MCG/MIN PRN Reason: TITRATE PER MD ORDER Levothyroxine Sodium (Synthroid) 200 mcg PO DAILY [facility] Last Admin: 11/12/16 09:54 Dose: 200 mcg Lidocaine (Lidoderm) 1 ea TD DAILY [facility] Last Admin: 11/12/16 09:30 Dose: 1 ea Non-Formulary Medication (Cholecalciferol (Vitamin D3) [D3-50]) 50,000 unit PO QWK [facility] Last Admin: 11/12/16 10:36 Dose: Not Given Non-Formulary Medication (Lenalidomide [Revlimid]) 10 mg PO DAILY [facility] Last Admin: 11/12/16 10:36 Dose: Not Given Potassium Chloride (K-Dur 20 Meq Er Tab) 20 meq PO DAILY [facility] Last Admin: 11/12/16 09:31 Dose: 20 meq - Constitutional Appears: In Acute Distress - Head Exam Head Exam: NORMAL INSPECTION, NORMOCEPHALIC - Eye Exam Eye Exam: EOMI, Normal appearance - ENT Exam ENT Exam: Mucous Membranes Dry - Respiratory Exam Additional comments: Bibasilar crackles - Cardiovascular Exam Cardiovascular Exam: REGULAR RHYTHM, RRR Additional comments: Paced beat - GI/Abdominal Exam GI & Abdominal Exam: Soft, Normal Bowel Sounds. absent: Tenderness - Neurological Exam Neurological Exam: Alert, Awake - Skin Skin Exam: Dry, Intact, Normal Color, Warm Assessment and Plan - Assessment and Plan (Free Text) Plan: 1. Hypotension -likely etiology is urosepsis -patient was given 1L bolus of normal saline -ABG, CBC, Troponin and ABG were all drawn and are pending -a repeat chest xray was ordered and is also pending -patient was started on levofed drip -patient to be transferred to ICU Patient seen and case discussed with MECHANICAL MAINTENANCE INSTRUCTOR and attending, Dr. Medina. <Maddy Medina - Last Filed: 11/12/16 18:02> Objective - Vital Signs/Intake and Output Vital Signs (last 24 hours): Temp Pulse Resp BP Pulse Ox 101.7 F H 64 22 106/62 100 11/12/16 14:40 11/12/16 16:45 11/12/16 16:45 11/12/16 16:45 11/12/16 16:45 - Medications Medications: Current Medications Acetaminophen (Tylenol 325mg Tab) 650 mg PO Q6H PRN PRN Reason: Fever >100.4 F Last Admin: 11/12/16 13:15 Dose: 650 mg Aspirin (Aspirin Chewable) 81 mg PO DAILY [facility] Last Admin: 11/12/16 09:31 Dose: 81 mg Cyanocobalamin (Vitamin B12 1000 Mcg Tab) 1,000 mcg PO DAILY [facility] Last Admin: 11/12/16 09:53 Dose: 1,000 mcg Docusate Sodium (Colace) 100 mg PO TID [facility] Last Admin: 11/12/16 16:34 Dose: Not Given Enoxaparin Sodium (Lovenox) 50 mg SC Q12H JONATHAN PRN Reason: Protocol Vancomycin HCl (Vancomycin 1gm) 1 gm in 250 mls @ 167 mls/hr IVPB Q12H JONATHAN PRN Reason: Protocol Last Admin: 11/12/16 09:15 Dose: 167 mls/hr Meropenem 1g/NS 100mL IVPB (Meropenem 1g/Ns 100ml Ivpb) 1 gm in 100 mls @ 100 mls/hr IVPB Q8 JONATHAN PRN Reason: Protocol Stop: 11/19/16 08:31 Last Admin: 11/12/16 13:05 Dose: 100 mls/hr NOREPINEPHRINE BIT/0.9 % NACL (Levophed 4 Mg/ 250 Ml Ns Premixed) 4 mg in 250 mls @ 37.5 mls/hr IV .Q6H40M PRN; Protocol; 10 MCG/MIN PRN Reason: TITRATE PER MD ORDER Last Admin: 11/12/16 16:35 Dose: 5 mcg/min, 18.75 mls/hr Levothyroxine Sodium (Synthroid) 200 mcg PO DAILY [facility] Last Admin: 11/12/16 09:54 Dose: 200 mcg Lidocaine (Lidoderm) 1 ea TD DAILY [facility] Last Admin: 11/12/16 09:30 Dose: 1 ea Non-Formulary Medication (Cholecalciferol (Vitamin D3) [D3-50]) 50,000 unit PO QWK [facility] Last Admin: 11/12/16 10:36 Dose: Not Given Non-Formulary Medication (Lenalidomide [Revlimid]) 10 mg PO DAILY [facility] Last Admin: 11/12/16 10:36 Dose: Not Given Potassium Chloride (K-Dur 20 Meq Er Tab) 20 meq PO DAILY [facility] Last Admin: 11/12/16 09:31 Dose: 20 meq - Labs Labs: 11/12/16 15:33 11/12/16 15:33 Attending/Attestation - Attestation I have personally seen and examined this patient.: Yes I have fully participated in the care of the patient.: Yes I have reviewed all pertinent clinical information, including history, physical exam and plan: Yes Notes (Text): 11/12/16 17:39 Correction/Addendum to Resident's note: MECHANICAL MAINTENANCE INSTRUCTOR was called at 3;08 PM O/E pt was not in any acute distress tenderness noted on palpation of region of both calfs, R > L. IMP:Hypotension may be secondary to sepsis /Urosepsis Dehydration DVT R leg PLAN:NS iv bolus is in progress,Levophed drip ordered. Dr Bettie Chavez consulted already,pt transferred to ICU.
[2016-11-12 15:43] LABS: HEMATOCRIT 23.7 % (36.0-48.0)
--- NOTE | 2016-11-12 15:43 | RAD ---
HISTORY: hypotensive COMPARISON: Earlier same day FINDINGS: LUNGS: No active pulmonary disease. PLEURA: No significant pleural effusion identified, no pneumothorax apparent. CARDIOVASCULAR: Normal. OSSEOUS STRUCTURES: No significant abnormalities. VISUALIZED UPPER ABDOMEN: Normal. OTHER FINDINGS: Dual lead pacemaker IMPRESSION: No active disease.
[2016-11-12 15:48] LABS: ALB/GLOB RATIO 0.9 (1.1-1.8); ALKALINE PHOSPHATASE 58 U/L (38-133); ALT/SGPT 32 U/L (7-56); AST/SGOT 34 U/L (15-39); BILIRUBIN,TOTAL 2.1 mg/dL (0.2-1.3); BLOOD UREA NITROGEN 12 mg/dL (7-21); CARBON DIOXIDE 17 mmol/L (21-33); CHLORIDE 113 mmol/L (98-107); GFR AFRICAN-AMERICAN > 60; GLUCOSE,RANDOM 80 mg/dL (70-110); POTASSIUM 3.5 mmol/L (3.6-5.0); SODIUM 138 mmol/L (132-148)
--- NOTE | 2016-11-12 15:49 | CP.PCM.CON ---
History of Present Illness - History of Present Illness History of Present Illness: 81 year old female with PMH of HTN, history of CVA, DM, multiple myeloma, hypothyroidism, S/P left pacemaker placement was brought in to [facility] because of nausea and vomiting, associated with fever and chills since yesterday afternoon. She denies headache or dizziness, no chest pain, no SOB, no cough or colds, no abdominal pain, no diarrhea, no dysuria. In the ED, CT scan of the abdomen and pelvis showed possible cholecystitis as well as sigmoid diverticulitis. Infectious Diseases consult is requested to further evaluate and manage. Review of Systems - Review of Systems All systems: reviewed and no additional remarkable complaints except (as per HPI ) Past Patient History - Infectious Disease Hx of Infectious Diseases: None - Past Social History Smoking Status: Never Smoked - CARDIAC Hx Hypertension: No Other/Comment: L chest pacemaker - PULMONARY Hx Respiratory Disorders: No - NEUROLOGICAL HX Cerebrovascular Accident: Yes - HEENT Hx HEENT Problems: Yes (cerumen impaction, eyeglasses) Hx Cataracts: Yes (b/l sx with implants) - RENAL Hx Chronic Kidney Disease: No - ENDOCRINE/METABOLIC Hx Diabetes Mellitus Type 1: No Hx Diabetes Mellitus Type 2: No - HEMATOLOGICAL/ONCOLOGICAL Hx Blood Transfusions: Yes Hx Blood Transfusion Reaction: No Hx Cancer: Yes Hx Shingles: Yes Other/Comment: Multiple Myeloma - INTEGUMENTARY Hx Dermatological Problems: No Other/Comment: Shingles in the right groin area and right upper buttocks - MUSCULOSKELETAL/RHEUMATOLOGICAL Hx Arthritis: Yes - GASTROINTESTINAL Hx Gastrointestinal Disorders: Yes (consitpation) - GENITOURINARY/GYNECOLOGICAL Hx Genitourinary Disorders: No Hx Incontinence: Yes - PSYCHIATRIC Hx Psychophysiologic Disorder: No Hx Substance Use: No - SURGICAL HISTORY Other/Comment: L chest pacemaker - ANESTHESIA Hx Anesthesia: Yes Hx Anesthesia Reactions: No Hx Malignant Hyperthermia: No Meds Allergies/Adverse Reactions: Allergies Allergy/AdvReac Type Severity Reaction Status Date / Time No Known Allergies Allergy Verified 11/12/16 04:40 - Medications Medications: Current Medications Potassium Chloride (Potassium Chloride 20 Meq/100 Ml) 20 meq in 100 mls @ 50 mls/hr IVPB Q2H JONATHAN Stop: 11/12/16 09:59 Last Admin: 11/12/16 07:26 Dose: 50 mls/hr Dopamine HCl/Dextrose (Dopamine 400mg/250ml D5w) 400 mg in 250 mls @ 3.402 mls/ hr IV .Q24H PRN; Protocol; 2 MCG/KG/MIN PRN Reason: TITRATE PER MD ORDER Ceftriaxone Sodium (Rocephin 1 Gram Ivpb) 1 gm in 100 mls @ 100 mls/hr IVPB DAILY [facility] PRN Reason: Protocol Lidocaine (Lidoderm) 1 ea TD DAILY [facility] Physical Exam - Constitutional Appears: Other (ill-appearing) - Head Exam Head Exam: NORMAL INSPECTION - ENT Exam ENT Exam: Mucous Membranes Moist - Neck Exam Neck exam: Negative for: Lymphadenopathy, Meningismus - Respiratory Exam Respiratory Exam: Decreased Breath Sounds - Cardiovascular Exam Cardiovascular Exam: +S1, +S2 - GI/Abdominal Exam GI & Abdominal Exam: Soft. absent: Tenderness Results - Vital Signs Recent Vital Signs: Last Vital Signs Temp 102.7 F H 11/12/16 05:30 Pulse 66 11/12/16 06:35 Resp 18 11/12/16 06:35 BP 84/40 L 11/12/16 06:35 Pulse Ox 97 11/12/16 06:35 - Labs Result Diagrams: 11/12/16 15:33 11/12/16 05:00 Assessment & Plan - Assessment and Plan (Free Text) Plan: Assessment Sepsis due to possible cholecystitis and acute sigmoid diverticulitis HTN history of CVA DM multiple myeloma hypothyroidism S/P left pacemaker placement Plan Started patient on Vancomycin and Merrem; would suggest HIDA scan to confirm cholecystitis and Surgical consult will follow up blood and urine cx will monitor clinically
--- NOTE | 2016-11-12 15:53 | CARD ---
APPROVED REPORT EKG Measurement Heart [id number] <Conclusion> Electronic atrial pacemaker Prolonged QT Abnormal ECG
--- NOTE | 2016-11-12 15:58 | CARD ---
APPROVED REPORT EKG Measurement Heart [id number] <Conclusion> Electronic atrial pacemaker ST & T wave abnormality, consider lateral ischemia Abnormal ECG
--- NOTE | 2016-11-12 15:58 | CARD ---
APPROVED REPORT EKG Measurement Heart [id number] <Conclusion> Electronic atrial pacemaker Nonspecific ST abnormality Abnormal ECG
[2016-11-12 16:03] LABS: TROPONIN I 0.81 ng/mL
--- NOTE | 2016-11-12 17:50 | US ---
HISTORY: RUQ abd pain COMPARISON: None available. TECHNIQUE: Sonographic evaluation of the abdomen. FINDINGS: LIVER: Measures 14.0 cm in sagittal dimension. Echogenic liver may be seen in setting of hepatic parenchymal disease or fatty infiltration. No focal hepatic mass identified. The main portal vein appears patent with normal directional flow. No intrahepatic bile duct dilatation. GALLBLADDER: Gallstones. No gallbladder wall thickening. Pericholecystic fluid. Negative sonographic Blevins's sign as assessed by the cruller maker machine. COMMON BILE DUCT: Measures 5 mm. PANCREAS: Not well visualized. RIGHT KIDNEY: Measures 9.1 x 4.3 x 5.0cm. No obstructing calculus or hydronephrosis identified. LEFT KIDNEY: Measures 9.4 x 4.1 x 4.7cm. No obstructing calculus or hydronephrosis identified. Echogenic focus in the lower pole measures approximately 1.3 cm maximum dimension, possibly calculus. SPLEEN: Measures approximately 8.5 cm. AORTA: Limited views appear unremarkable. IVC: Limited views appear unremarkable. OTHER FINDINGS: None. IMPRESSION: Echogenic liver may be seen in setting of hepatic parenchymal disease or fatty infiltration. Cholelithiasis. Pericholecystic fluid. No evidence of gallbladder wall thickening. Negative sonographic Blevins's sign as assessed by the cruller maker machine. Correlate clinically.
--- NOTE | 2016-11-12 18:52 | US ---
HISTORY: Leg pain and swelling. Evaluate for DVT PHYSICIAN(S): David Young MD. TECHNIQUE: Duplex sonography and color-flow Doppler with graded compression were used to evaluate the deep venous systems of both lower extremities. The exam is limited by edema. FINDINGS: There is occlusive thrombus in the right popliteal and visualized tibial veins. The thrombus is somewhat echogenic. It may represent subacute/chronic thrombus. The left femoral vein and left common femoral vein are patent and compressible. There is no sonographic evidence for deep venous thrombosis the visualized segment of the left lower extremity. 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
[2016-11-12] MEDS: Enoxaparin 60 mg Syringe SC SCH (23:13)
--- NOTE | 2016-11-13 00:32 | CON ---
DATE: 11/12/2016 CONSULTING PHYSICIAN: Dr. Yuridia Wayne. REASON FOR THE CONSULTATION: Hypotension, positive troponin, sepsis and septic shock. BRIEF CLINICAL HISTORY: This is a 81-year-old female with past medical history significant for multiple myeloma, hypothyroidism, hypertension, depression, history of CVA, bone marrow transplantation, status post pacemaker in 01/2015, who was complaining of nausea, vomiting and does not feel good, so came to the emergency room. Denies any chest pain. Denies any shortness of breath. Denies any palpitation. Denies any abdominal pain. PAST MEDICAL HISTORY: Significant for multiple myeloma, hypothyroidism, hypertension, depression, CVA, bone marrow transplantation for multiple myeloma, history of permanent pacemaker 01/2015 when the patient presented with subtrochanteric fracture of the left femur for symptomatic bradycardia. Pacemaker was placed by Dr. Vasquez. PAST SURGICAL HISTORY: Significant for status post left trochanteric fracture 01/2015 status post permanent pacemaker by Dr. Vasquez in 01/2015, dual chamber pacemaker, [facility], [employer] pacemaker, 01/30/2015. ALLERGIES: NO KNOWN DRUG ALLERGIES. CURRENT MEDICATIONS: The patient at home was taking Desyrel, trazodone, potassium, levothyroxine, Colace, cyanocobalamin, vitamin D3, aspirin and Fosamax. PREVIOUS CARDIAC WORKUP: As follows; the patient had echocardiography done on 01/31/2015 that shows LV hypertrophy, normal LV function, no segmental wall motion abnormality, moderate aortic wall sclerosis, mild aortic regurgitation, RV systolic pressure 32, ejection fraction 55%, status post permanent pacemaker, dual chamber on 01/30/2015, mRIC, placed by Dr. Vasquez. REVIEW OF SYSTEMS: As per HPI. PHYSICAL EXAMINATION: As follows; VITAL SIGNS: Temperature 101.7, heart rate 65, blood pressure 119/52. HEENT: PERRLA. Extraocular muscles intact. NECK: Supple. No carotid bruit. No thyromegaly. CHEST: Clear to auscultation. HEART: S1 and S2 regular. ABDOMEN: Soft. EXTREMITIES: Clubbing and cyanosis negative. LABORATORY DATA: EKG shows normal sinus at rate of 82. IMPRESSION: A 81-year-old female with past medical history significant for multiple myeloma, hypothyroidism, status post bone marrow transplantation, hypertension, depression, cerebrovascular accident, status post dual chamber pacemaker in 01/2015, mRIC, came in with nausea, vomiting, 102 fever, possible neutropenic sepsis, WBC count 2.2 and platelet count low on dopamine seen in the ER being evaluated by top installer for possible ICU admission, awake and alert, denies any chest pain, borderline troponin 0.17 probably secondary to hemodynamic instability, hypotension, electrolyte imbalance multifactorial as well as neutropenic sepsis. RECOMMENDATION: Broad-spectrum antibiotic, continue IV fluid. We will give 1 dose of albumin to increase the plasma oncotic pressure. Continue dopamine. We will give 1 dose of Lovenox also and monitor closely, serial CPK and troponin. We will follow. Overall, the patient's condition is critical. terminal system operator prognosis is guarded. I agree for ICU evaluation and possible ICU transfer. They will follow with you. We will repeat another potassium to assess the potassium level. I will give 1 dose of albumin as mentioned. Overall, the patient's condition is critical. Thank you Dr. Bernardo for providing the opportunity in taking care of the patient. Yuridia Wayne MD
--- NOTE | 2016-11-13 01:28 | CP.PCM.HP ---
History of Present Illness - History of Present Illness History of Present Illness: 11/12/16 81 y/o F with past medical history of Multiple myeloma, hypothyroidism, hypertension, depression, CVA, symptomatic bradycardia with pacemaker presents for N/V that began yesterday at 5 pm. Patient states that she vomited about 4- 5 times Nb/Nb. Patient also complains of abd pain, subjective fevers and shortness of breath that began a few hours ago. Patient recently had pelvic hip fx a few months ago and has been going through rehab for strength training. pt was admitted to medicle floor , had rr and then transfer to the unit Present on Admission - Present on Admission Any Indicators Present on Admission: No Review of Systems - Review of Systems Systems not reviewed;Unavailable: Unstable Vital Signs - Constitutional Constitutional: Malaise, Weight Loss, Weakness - EENT Eyes: As Per HPI Ears: As Per HPI Nose/Mouth/Throat: As Per HPI - Breasts Breasts: As Per HPI - Cardiovascular Cardiovascular: As Per HPI - Respiratory Respiratory: As Per HPI - Gastrointestinal Gastrointestinal: As Per HPI - Musculoskeletal Musculoskeletal: Arthralgias, Muscle Cramps, Muscle Weakness - Integumentary Integumentary: As Per HPI - Neurological Neurological: As Per HPI - Psychiatric Psychiatric: As Per HPI - Endocrine Endocrine: As Per HPI - Hematologic/Lymphatic Hematologic: As Per HPI Past Patient History - Infectious Disease Hx of Infectious Diseases: None - Past Social History Smoking Status: Never Smoked - CARDIAC Hx Hypertension: No Other/Comment: L chest pacemaker - PULMONARY Hx Respiratory Disorders: No - NEUROLOGICAL HX Cerebrovascular Accident: Yes - HEENT Hx HEENT Problems: Yes (cerumen impaction, eyeglasses) Hx Cataracts: Yes (b/l sx with implants) - RENAL Hx Chronic Kidney Disease: No - ENDOCRINE/METABOLIC Hx Diabetes Mellitus Type 1: No Hx Diabetes Mellitus Type 2: No - HEMATOLOGICAL/ONCOLOGICAL Hx Blood Transfusions: Yes Hx Blood Transfusion Reaction: No Hx Cancer: Yes Hx Shingles: Yes Other/Comment: Multiple Myeloma - INTEGUMENTARY Hx Dermatological Problems: No Other/Comment: Shingles in the right groin area and right upper buttocks - MUSCULOSKELETAL/RHEUMATOLOGICAL Hx Arthritis: Yes - GASTROINTESTINAL Hx Gastrointestinal Disorders: Yes (consitpation) - GENITOURINARY/GYNECOLOGICAL Hx Genitourinary Disorders: No Hx Incontinence: Yes - PSYCHIATRIC Hx Psychophysiologic Disorder: No Hx Substance Use: No - SURGICAL HISTORY Other/Comment: L chest pacemaker - ANESTHESIA Hx Anesthesia: Yes Hx Anesthesia Reactions: No Hx Malignant Hyperthermia: No Meds Allergies/Adverse Reactions: Allergies Allergy/AdvReac Type Severity Reaction Status Date / Time No Known Allergies Allergy Verified 11/12/16 04:40 Physical Exam - Constitutional Appears: Well - Head Exam Head Exam: ATRAUMATIC, NORMAL INSPECTION, NORMOCEPHALIC - Eye Exam Eye Exam: EOMI, Normal appearance, PERRL Pupil Exam: NORMAL ACCOMODATION, PERRL - ENT Exam ENT Exam: Mucous Membranes Moist, Normal Exam - Neck Exam Neck exam: Positive for: Normal Inspection - Respiratory Exam Respiratory Exam: Clear to Auscultation Bilateral, NORMAL BREATHING PATTERN - Cardiovascular Exam Cardiovascular Exam: REGULAR RHYTHM - GI/Abdominal Exam GI & Abdominal Exam: Normal Bowel Sounds, Soft. absent: Tenderness - Rectal Exam Rectal Exam: NORMAL INSPECTION - Exam Exam: Circumcision, NORMAL INSPECTION External exam: NORMAL EXTERNAL EXAM Speculum exam: NORMAL SPECULUM EXAM Bimanual exam: NORMAL BIMANUAL EXAM - Extremities Exam Extremities exam: Positive for: pedal edema, tenderness - Back Exam Back exam: NORMAL INSPECTION - Neurological Exam Neurological exam: Alert, CN II-XII Intact, Normal Gait, Oriented x3, Reflexes Normal - Psychiatric Exam Psychiatric exam: Normal Affect, Normal Mood - Skin Skin Exam: Dry, Intact, Normal Color, Warm Results - Vital Signs Recent Vital Signs: Last Vital Signs Temp 98.3 F 11/12/16 16:21 Pulse 66 11/12/16 20:21 Resp 22 11/12/16 16:45 BP 106/62 11/12/16 16:45 Pulse Ox 100 11/12/16 16:45 - Labs Result Diagrams: 11/12/16 15:33 11/12/16 15:33 Labs: Laboratory Results - last 24 hr 11/12/16 11/12/16 11/12/16 10:30 15:11 15:18 WBC RBC Hgb Hct MCV MCH MCHC RDW Plt Count MPV pCO2 33 L pO2 39 36.0 L* HCO3 17.8 L ABG pH 7.34 L ABG Total CO2 18.8 L ABG O2 Saturation 76.2 L ABG O2 Content 8.3 L ABG Base Excess -7.2 L ABG Hemoglobin 7.8 L ABG Carboxyhemoglobin 1.4 POC ABG HHb (Measured) 23.5 H ABG Methemoglobin 0.0 ABG O2 Capacity 10.9 L VBG pH 7.21 L VBG pCO2 56.0 VBG HCO3 22.4 VBG Total CO2 24.1 VBG O2 Sat (Calc) 70.1 H VBG Base Excess -6.1 L VBG Potassium 3.2 L Hgb O2 Saturation 75.2 L Sodium 142.0 Chloride 111.0 H Glucose 103 Lactate 2.5 H FiO2 21.0 36.0 Potassium Carbon Dioxide Anion Gap BUN Creatinine Est GFR ( Amer) Est GFR (Non-Af Amer) POC Glucose (mg/dL) 93 Random Glucose Calcium Total Bilirubin AST ALT Alkaline Phosphatase Lactate Dehydrogenase Total Creatine Kinase CK-MB (CK-2) CK-MB (CK-2) % Troponin I Total Protein Albumin Globulin Albumin/Globulin Ratio Venous Blood Potassium 3.2 L 11/12/16 11/12/16 11/12/16 15:33 15:33 15:33 WBC 4.3 L D RBC 2.41 L Hgb 7.6 L Hct 23.7 L MCV 98.3 MCH 31.5 MCHC 32.1 RDW 16.8 H Plt Count 90 L MPV 8.5 pCO2 pO2 39 HCO3 ABG pH ABG Total CO2 ABG O2 Saturation ABG O2 Content ABG Base Excess ABG Hemoglobin ABG Carboxyhemoglobin POC ABG HHb (Measured) ABG Methemoglobin ABG O2 Capacity VBG pH 7.34 VBG pCO2 35.0 L VBG HCO3 18.9 L VBG Total CO2 20.0 L VBG O2 Sat (Calc) 79.7 H VBG Base Excess -6.1 L VBG Potassium 3.6 Hgb O2 Saturation Sodium 141.0 138 Chloride 114.0 H 113 H Glucose 83 Lactate 1.6 FiO2 21.0 Potassium 3.5 L Carbon Dioxide 17 L Anion Gap 12 BUN 12 Creatinine 0.9 Est GFR ( Amer) > 60 Est GFR (Non-Af Amer) > 60 POC Glucose (mg/dL) Random Glucose 80 Calcium 7.0 L Total Bilirubin 2.1 H AST 34 ALT 32 Alkaline Phosphatase 58 Lactate Dehydrogenase 335 Total Creatine Kinase 432 H CK-MB (CK-2) 2.6 CK-MB (CK-2) % Cancelled Troponin I 0.81 H* D Total Protein 5.0 L Albumin 2.3 L Globulin 2.7 Albumin/Globulin Ratio 0.9 L Venous Blood Potassium 3.6 Assessment & Plan - Assessment and Plan (Free Text) Assessment: 81 year old female with PMH of HTN, history of CVA, DM, multiple myeloma, hypothyroidism, S/P left pacemaker placement was brought in to [facility] because of nausea and vomiting, associated with fever and chills since yesterday afternoon. She denies headache or dizziness, no chest pain, no SOB, no cough or colds, no abdominal pain, no diarrhea, no dysuria. In the ED, CT scan of the abdomen and pelvis showed possible cholecystitis as well as sigmoid diverticulitis. Infectious Diseases is on the case Found to have Hypotension that resolved after 30ml/kg IV fluids given. Abx given in the 1st 1 hr. vancomycin and Zosyn. Now on Meropenum. Blood cx, urine cx sent. Abd exam benign , no Blevins sign. Ct abd seen by me, possible GB distention and fluid w/ Mild elevated T.Bili. Would need US GB and GI consult. Urine shows UTI. was to transfer to icu after rapid response , Plan: anb. started, for mm , called hematology consult
[2016-11-13] MEDS: Meropenem 1g/NS 100mL IVPB 1 GM/100 ML PIGGYBACK IVPB SCH ×3 (05:09→21:22)
[2016-11-13 06:17] LABS: MEAN CELL VOLUME 98.3 fl (80.0-105.0); MEAN CORPUSCULAR HEMOGLOBIN 30.8 pg (25.0-35.0); MEAN CORPUSCULAR HGB CONC 31.3 g/dl (31.0-37.0); MEAN PLATELET VOLUME 8.9 fl (7.0-11.0); PLATELET COUNT 80 10^3/uL (120.0-450.0); RED CELL DISTRIBUTION WIDTH 17.6 % (11.5-14.5); WHITE BLOOD COUNT 6.2 10^3/ul (4.5-11.0)
[2016-11-13 06:21] LABS: ADD MANUAL DIFF? YES
[2016-11-13 06:50] LABS: ALB/GLOB RATIO 0.9 (1.1-1.8); ALKALINE PHOSPHATASE 51 U/L (38-133); ALT/SGPT 38 U/L (7-56); AST/SGOT 37 U/L (15-39); BILIRUBIN,TOTAL 0.9 mg/dL (0.2-1.3); BLOOD UREA NITROGEN 13 mg/dL (7-21); CARBON DIOXIDE 17 mmol/L (21-33); CHLORIDE 117 mmol/L (95-110); CHOLESTEROL 79 mg/dL (130-200); GFR AFRICAN-AMERICAN > 60; GLUCOSE,RANDOM 82 mg/dL (70-110); MAGNESIUM 1.2 mg/dL (1.7-2.2); PHOSPHOROUS 2.8 mg/dL (2.5-4.5); POTASSIUM 3.6 mmol/L (3.6-5.0); SODIUM 142 mmol/L (132-148); TOTAL PROTEIN 5.2 g/dL (5.8-8.3)
[2016-11-13 07:00] LABS: NEUTROPHIL 58 % (50.0-70.0)
[2016-11-13 07:01] LABS: BAND 14 % (0-2); BASOPHIL 1 % (0.0-1.0); EOSINOPHIL 1 % (0.0-3.0)
[2016-11-13 07:02] LABS: HYPOCHROMIA 1+; PLATELET ESTIMATE LOW (NORMAL)
[2016-11-13 07:15] LABS: CALCIUM 6.5 mg/dL (8.4-10.5)
[2016-11-13 08:20] LABS: TROPONIN I 0.36 ng/mL
[2016-11-13] MEDS: Levothyroxine 200 MCG TAB PO SCH (09:21)
[2016-11-13] MEDS: Lidocaine 5% Patch TD SCH (09:23)
[2016-11-13] MEDS: Potassium Chloride 20 mEq ER Tab PO SCH (09:23)
[2016-11-13] MEDS ORDERED: Sodium Chloride 0.9% 1,000 ML IV STA (09:36)
--- NOTE | 2016-11-13 09:51 | CP.PCM.PN ---
Subjective - Date & Time of Evaluation Date of Evaluation: 11/13/16 Time of Evaluation: 08:50 - Subjective Subjective: No more chills, feeling a little better but still feels weak, no more nausea or vomiting, no abdominal pain, no dysuria, no SOB. Objective - Vital Signs/Intake and Output Vital Signs (last 24 hours): Temp Pulse Resp BP Pulse Ox 98.3 F 66 22 106/62 100 11/12/16 16:21 11/13/16 04:00 11/12/16 16:45 11/12/16 16:45 11/12/16 16:45 Intake and Output: 11/12/16 11/13/16 18:59 06:59 Intake Total 4389 15.2 Output Total 300 Balance 4089 15.2 - Medications Medications: Current Medications Acetaminophen (Tylenol 325mg Tab) 650 mg PO Q6H PRN PRN Reason: Fever >100.4 F Last Admin: 11/13/16 00:35 Dose: 650 mg Aspirin (Aspirin Chewable) 81 mg PO DAILY [facility] Last Admin: 11/12/16 09:31 Dose: 81 mg Cyanocobalamin (Vitamin B12 1000 Mcg Tab) 1,000 mcg PO DAILY [facility] Last Admin: 11/12/16 09:53 Dose: 1,000 mcg Docusate Sodium (Colace) 100 mg PO TID [facility] Last Admin: 11/12/16 19:32 Dose: Not Given Enoxaparin Sodium (Lovenox) 50 mg SC Q12H JONATHAN PRN Reason: Protocol Last Admin: 11/12/16 23:13 Dose: 50 mg Meropenem 1g/NS 100mL IVPB (Meropenem 1g/Ns 100ml Ivpb) 1 gm in 100 mls @ 100 mls/hr IVPB Q8 JONATHAN PRN Reason: Protocol Stop: 11/19/16 08:31 Last Admin: 11/13/16 05:09 Dose: 100 mls/hr NOREPINEPHRINE BIT/0.9 % NACL (Levophed 4 Mg/ 250 Ml Ns Premixed) 4 mg in 250 mls @ 9.375 mls/hr IV .Q24H PRN; Protocol; 2.5 MCG/MIN PRN Reason: TITRATE PER MD ORDER Last Titration: 11/13/16 01:00 Dose: 1 mcg/min, 3.75 mls/hr Levothyroxine Sodium (Synthroid) 200 mcg PO DAILY JONATHAN Last Admin: 11/12/16 09:54 Dose: 200 mcg Lidocaine (Lidoderm) 1 ea TD DAILY JONATHAN Last Admin: 11/12/16 09:30 Dose: 1 ea Non-Formulary Medication (Cholecalciferol (Vitamin D3) [D3-50]) 50,000 unit PO QWK JONATHAN Last Admin: 11/12/16 10:36 Dose: Not Given Non-Formulary Medication (Lenalidomide [Revlimid]) 10 mg PO DAILY [facility] Last Admin: 11/12/16 10:36 Dose: Not Given Potassium Chloride (K-Dur 20 Meq Er Tab) 20 meq PO DAILY JONATHAN Last Admin: 11/12/16 09:31 Dose: 20 meq - Labs Labs: 11/13/16 06:00 11/12/16 15:33 - Constitutional Appears: Other (ill-appearing) - Head Exam Head Exam: NORMAL INSPECTION - ENT Exam ENT Exam: Mucous Membranes Moist - Neck Exam Neck Exam: absent: Lymphadenopathy, Meningismus - Respiratory Exam Respiratory Exam: Decreased Breath Sounds - Cardiovascular Exam Cardiovascular Exam: +S1, +S2 - GI/Abdominal Exam GI & Abdominal Exam: Soft. absent: Tenderness Assessment and Plan - Assessment and Plan (Free Text) Plan: Assessment Sepsis due to possible cholecystitis and acute sigmoid diverticulitis with associated gram negative bacilli bacteremia HTN history of CVA DM multiple myeloma hypothyroidism S/P left pacemaker placement Plan will d/c Vancomycin and continue Merrem (day 2) pending identification and senstivities of the gram negative bacilli in the blood; would suggest HIDA scan to confirm cholecystitis and GI or Surgery consult will continue to monitor clinically
[2016-11-13] MEDS ORDERED: Magnesium Sulfate 2 GM in Sodium Chloride 0.9% 100 ML IVPB ONE (10:00)
[2016-11-13] MEDS: Enoxaparin 60 mg Syringe SC SCH ×2 (10:11→22:25)
[2016-11-13] MEDS ORDERED: Albumin Human 25% (12.5 gm/50 ml) IV ONE (10:33)
--- NOTE | 2016-11-13 12:14 | CP.PCM.CON ---
History of Present Illness - History of Present Illness History of Present Illness: Covering Dr. Dennis 81 year old female with a history of CVA, DM, hypothryoidism, pacemaker, multiple myeloma s/p autologous peripheral blood stem cell transplant in 2010 on maintenance Revlimid, admitted with possible cholecystitis and diverticulitis. She notes to increasing nausea and vomiting which was associated with fever and chills. She denies chest pain and shortness of breath. Past medical history: CVA, DM, hypothryoidism, pacemaker, multiple myeloma s/p autologous peripheral blood stem cell transplant in 2010 on maintenance Revlimid. Past surgical history: Pacemaker Family history: Several members with unknown cancer Social history: Denies tobacco, alcohol, and illicit drug use. Allergies: NKA Review of systems: All remaining review of systems including HEENT, cardiovascular, respiratory, gastrointestinal, genitourinary, musculoskeletal, dermatologic, neurologic, and psychiatric are negative unless mentioned in the HPI. Past Patient History - Infectious Disease Hx of Infectious Diseases: None - Past Social History Smoking Status: Never Smoked - CARDIAC Hx Hypertension: No Other/Comment: L chest pacemaker - PULMONARY Hx Respiratory Disorders: No - NEUROLOGICAL HX Cerebrovascular Accident: Yes - HEENT Hx HEENT Problems: Yes (cerumen impaction, eyeglasses) Hx Cataracts: Yes (b/l sx with implants) - RENAL Hx Chronic Kidney Disease: No - ENDOCRINE/METABOLIC Hx Diabetes Mellitus Type 1: No Hx Diabetes Mellitus Type 2: No - HEMATOLOGICAL/ONCOLOGICAL Hx Blood Transfusions: Yes Hx Blood Transfusion Reaction: No Hx Cancer: Yes Hx Shingles: Yes Other/Comment: Multiple Myeloma - INTEGUMENTARY Hx Dermatological Problems: No Other/Comment: Shingles in the right groin area and right upper buttocks - MUSCULOSKELETAL/RHEUMATOLOGICAL Hx Arthritis: Yes - GASTROINTESTINAL Hx Gastrointestinal Disorders: Yes (consitpation) - GENITOURINARY/GYNECOLOGICAL Hx Genitourinary Disorders: No Hx Incontinence: Yes - PSYCHIATRIC Hx Psychophysiologic Disorder: No Hx Substance Use: No - SURGICAL HISTORY Other/Comment: L chest pacemaker - ANESTHESIA Hx Anesthesia: Yes Hx Anesthesia Reactions: No Hx Malignant Hyperthermia: No Meds Allergies/Adverse Reactions: Allergies Allergy/AdvReac Type Severity Reaction Status Date / Time No Known Allergies Allergy Verified 11/12/16 04:40 - Medications Medications: Current Medications Acetaminophen (Tylenol 325mg Tab) 650 mg PO Q6H PRN PRN Reason: Fever >100.4 F Last Admin: 11/13/16 00:35 Dose: 650 mg Aspirin (Aspirin Chewable) 81 mg PO DAILY [facility] Last Admin: 11/13/16 09:21 Dose: 81 mg Cyanocobalamin (Vitamin B12 1000 Mcg Tab) 1,000 mcg PO DAILY [facility] Last Admin: 11/13/16 09:23 Dose: 1,000 mcg Docusate Sodium (Colace) 100 mg PO TID [facility] Last Admin: 11/13/16 09:21 Dose: 100 mg Enoxaparin Sodium (Lovenox) 50 mg SC Q12H JONATHAN PRN Reason: Protocol Last Admin: 11/13/16 10:11 Dose: 50 mg Hydrocortisone Sodium Succinate (Solu-Cortef) 100 mg IVP Q8 [facility] Last Admin: 11/13/16 10:10 Dose: 100 mg Meropenem 1g/NS 100mL IVPB (Meropenem 1g/Ns 100ml Ivpb) 1 gm in 100 mls @ 100 mls/hr IVPB Q8 JONATHAN PRN Reason: Protocol Stop: 11/19/16 08:31 Last Admin: 11/13/16 05:09 Dose: 100 mls/hr NOREPINEPHRINE BIT/0.9 % NACL (Levophed 4 Mg/ 250 Ml Ns Premixed) 4 mg in 250 mls @ 9.375 mls/hr IV .Q24H PRN; Protocol; 2.5 MCG/MIN PRN Reason: TITRATE PER MD ORDER Last Titration: 11/13/16 11:10 Dose: 0 mcg/min, 0 mls/hr Levothyroxine Sodium (Synthroid) 200 mcg PO DAILY [facility] Last Admin: 11/13/16 09:21 Dose: 200 mcg Lidocaine (Lidoderm) 1 ea TD DAILY [facility] Last Admin: 11/13/16 09:23 Dose: 1 ea Non-Formulary Medication (Cholecalciferol (Vitamin D3) [D3-50]) 50,000 unit PO QWK [facility] Last Admin: 11/12/16 10:36 Dose: Not Given Non-Formulary Medication (Lenalidomide [Revlimid]) 10 mg PO DAILY [facility] Last Admin: 11/12/16 10:36 Dose: Not Given Potassium Chloride (K-Dur 20 Meq Er Tab) 20 meq PO DAILY [facility] Last Admin: 08/15/17 09:23 Dose: 20 meq Physical Exam - Head Exam Head Exam: ATRAUMATIC - Eye Exam Eye Exam: Normal appearance - ENT Exam ENT Exam: Mucous Membranes Dry - Respiratory Exam Respiratory Exam: NORMAL BREATHING PATTERN - Cardiovascular Exam Cardiovascular Exam: +S1, +S2 - GI/Abdominal Exam GI & Abdominal Exam: Normal Bowel Sounds - Extremities Exam Extremities exam: Positive for: pedal edema - Neurological Exam Neurological exam: Oriented x3 - Psychiatric Exam Psychiatric exam: Normal Affect, Normal Mood - Skin Skin Exam: Warm Results - Vital Signs Recent Vital Signs: Last Vital Signs Temp 98.3 F 11/12/16 16:21 Pulse 60 11/13/16 07:46 Resp 22 11/12/16 16:45 BP 106/62 11/12/16 16:45 Pulse Ox 100 11/12/16 16:45 - Labs Result Diagrams: 11/13/16 06:00 11/13/16 06:00 Labs: Laboratory Results - last 24 hr 11/12/16 11/12/16 11/12/16 15:11 15:18 15:33 WBC RBC Hgb Hct MCV MCH MCHC RDW Plt Count MPV Neutrophils % (Manual) Band Neutrophils % Lymphocytes % (Manual) Monocytes % (Manual) Eosinophils % (Manual) Basophils % (Manual) Platelet Evaluation Hypochromasia pCO2 33 L pO2 36.0 L* 39 HCO3 17.8 L ABG pH 7.34 L ABG Total CO2 18.8 L ABG O2 Saturation 76.2 L ABG O2 Content 8.3 L ABG Base Excess -7.2 L ABG Hemoglobin 7.8 L ABG Carboxyhemoglobin 1.4 POC ABG HHb (Measured) 23.5 H ABG Methemoglobin 0.0 ABG O2 Capacity 10.9 L VBG pH 7.34 VBG pCO2 35.0 L VBG HCO3 18.9 L VBG Total CO2 20.0 L VBG O2 Sat (Calc) 79.7 H VBG Base Excess -6.1 L VBG Potassium 3.6 Hgb O2 Saturation 75.2 L Sodium 141.0 Chloride 114.0 H Glucose 83 Lactate 1.6 FiO2 36.0 21.0 Potassium Carbon Dioxide Anion Gap BUN Creatinine Est GFR ( Amer) Est GFR (Non-Af Amer) POC Glucose (mg/dL) 93 Random Glucose Hemoglobin A1c Calcium Phosphorus Magnesium Total Bilirubin AST ALT Alkaline Phosphatase Lactate Dehydrogenase Total Creatine Kinase CK-MB (CK-2) CK-MB (CK-2) % Troponin I Total Protein Albumin Globulin Albumin/Globulin Ratio Triglycerides Cholesterol LDL Cholesterol Direct HDL Cholesterol TSH 3rd Generation Venous Blood Potassium 3.6 11/12/16 11/12/16 11/13/16 15:33 15:33 06:00 WBC 4.3 L D 6.2 D RBC 2.41 L 2.34 L Hgb 7.6 L 7.2 L Hct 23.7 L 23.0 L MCV 98.3 98.3 MCH 31.5 30.8 MCHC 32.1 31.3 RDW 16.8 H 17.6 H Plt Count 90 L 80 L MPV 8.5 8.9 Neutrophils % (Manual) 58 Band Neutrophils % 14 H* Lymphocytes % (Manual) 16 L Monocytes % (Manual) 10 H Eosinophils % (Manual) 1 Basophils % (Manual) 1 Platelet Evaluation Low Hypochromasia 1+ pCO2 pO2 HCO3 ABG pH ABG Total CO2 ABG O2 Saturation ABG O2 Content ABG Base Excess ABG Hemoglobin ABG Carboxyhemoglobin POC ABG HHb (Measured) ABG Methemoglobin ABG O2 Capacity VBG pH VBG pCO2 VBG HCO3 VBG Total CO2 VBG O2 Sat (Calc) VBG Base Excess VBG Potassium Hgb O2 Saturation Sodium 138 Chloride 113 H Glucose Lactate FiO2 Potassium 3.5 L Carbon Dioxide 17 L Anion Gap 12 BUN 12 Creatinine 0.9 Est GFR ( Amer) > 60 Est GFR (Non-Af Amer) > 60 POC Glucose (mg/dL) Random Glucose 80 Hemoglobin A1c Calcium 7.0 L Phosphorus Magnesium Total Bilirubin 2.1 H AST 34 ALT 32 Alkaline Phosphatase 58 Lactate Dehydrogenase 335 Total Creatine Kinase 432 H CK-MB (CK-2) 2.6 CK-MB (CK-2) % Cancelled Troponin I 0.81 H* D Total Protein 5.0 L Albumin 2.3 L Globulin 2.7 Albumin/Globulin Ratio 0.9 L Triglycerides Cholesterol LDL Cholesterol Direct HDL Cholesterol TSH 3rd Generation Venous Blood Potassium 11/13/16 11/13/16 11/13/16 06:00 06:00 06:00 WBC RBC Hgb Hct MCV MCH MCHC RDW Plt Count MPV Neutrophils % (Manual) Band Neutrophils % Lymphocytes % (Manual) Monocytes % (Manual) Eosinophils % (Manual) Basophils % (Manual) Platelet Evaluation Hypochromasia pCO2 pO2 HCO3 ABG pH ABG Total CO2 ABG O2 Saturation ABG O2 Content ABG Base Excess ABG Hemoglobin ABG Carboxyhemoglobin POC ABG HHb (Measured) ABG Methemoglobin ABG O2 Capacity VBG pH VBG pCO2 VBG HCO3 VBG Total CO2 VBG O2 Sat (Calc) VBG Base Excess VBG Potassium Hgb O2 Saturation Sodium 142 Chloride 117 H Glucose Lactate FiO2 Potassium 3.6 Carbon Dioxide 17 L Anion Gap 12 BUN 13 Creatinine 0.8 Est GFR ( Amer) > 60 Est GFR (Non-Af Amer) > 60 POC Glucose (mg/dL) Random Glucose 82 Hemoglobin A1c 5.3 Calcium 6.5 L* Phosphorus 2.8 Magnesium 1.2 L Total Bilirubin 0.9 AST 37 ALT 38 Alkaline Phosphatase 51 Lactate Dehydrogenase Total Creatine Kinase CK-MB (CK-2) CK-MB (CK-2) % Troponin I 0.36 H* D Total Protein 5.2 L Albumin 2.4 L Globulin 2.8 Albumin/Globulin Ratio 0.9 L Triglycerides 90 Cholesterol 79 L LDL Cholesterol Direct < 30 HDL Cholesterol 31 TSH 3rd Generation < 0.0 L Venous Blood Potassium Assessment & Plan (1) Thrombocytopenia Assessment and Plan: may be exacerbated by sepsis element of bone marrow suppression from Revlimid; will hold Status: Acute (2) Anemia Assessment and Plan: chronic disease, myeloma, Revlimid transfusion support PRN Revlimid held Status: Acute (3) Multiple myeloma Assessment and Plan: pt reports she is in remission s/p allo PBSCT on maintenance Revlimid; currently on hold can resume Revlimid as outpatient once clear of infection outpatient f/u with primary heme/onc Thank you for this interesting consult. Status: Acute
--- NOTE | 2016-11-13 12:36 | CP.CCUPN ---
CCU Subjective - Physician Review Events Since Last Encounter (Free Text): 11/13/16 12:32 81 y/o F admitted to the ICu after hypotension was unresolved on the medical floors. overnight remained on low dose Levophed 2-3mcg. Currently 7L of NS given and off Levophed with sbp> 90. No acute complaints. CCU Objective - Vital Signs / Intake & Output Intake and Output (Last 8hrs): Intake & Output 11/12/16 11/13/16 11/13/16 22:59 06:59 14:59 Intake Total 4389 15.2 144.8 Output Total 300 Balance 4089 15.2 144.8 Weight 100 lb Intake: IV 4379 15.2 144.8 Right Femoral 4379 Oral 10 Output: Urine 300 Straight 300 Other: Voiding Method Bedpan Bedpan # Bowel Movements 0 - Physical Exam Head: Positive for: Atraumatic, Normocephalic Extroacular Muscles: Positive for: EOMI Mouth: Positive for: Moist Mucous Membranes Pharnyx: Positive for: Normal Neck: Positive for: Normal Range of Motion Respiratory/Chest: Positive for: Clear to Auscultation, Good Air Exchange. Negative for: Respiratory Distress, Accessory Muscle Use, Wheezes, Rales, Rhonchi Cardiovascular: Positive for: Regular Rate and Rhythm, Normal S1, S2. Negative for: Murmurs, Rub, Gallop, Muffled Abdomen: Positive for: Normal Bowel Sounds. Negative for: Distention, Peritoneal Signs, Rebound, Guarding Upper Extremity: Positive for: Normal Inspection Lower Extremity: Positive for: Normal Inspection, NORMAL PULSES. Negative for: Edema, CALF TENDERNESS Neurological: Positive for: GCS=15, CN II-XII Intact Skin: Positive for: Warm, Dry, Normal Color. Negative for: Rashes Psychiatric: Positive for: Alert, Oriented x 3, Normal Insight, Normal Concentration - Medications Active Medications: Active Medications Generic Name Dose Route Start Last Admin Trade Name Freq PRN Reason Stop Dose Admin Acetaminophen 650 mg 11/12/16 13:00 11/13/16 00:35 Tylenol 325mg Tab PO 650 mg Q6H PRN Administration Fever >100.4 F Aspirin 81 mg 11/12/16 10:00 11/13/16 09:21 Aspirin Chewable PO 81 mg DAILY JONATHAN Administration Cyanocobalamin 1,000 mcg 11/12/16 10:00 11/13/16 09:23 Vitamin B12 1000 Mcg Tab PO 1,000 mcg DAILY JONATHAN Administration Docusate Sodium 100 mg 11/12/16 10:00 11/13/16 09:21 Colace PO 100 mg TID JONATHAN Administration Enoxaparin Sodium 50 mg 11/12/16 23:00 11/13/16 10:11 Lovenox SC 50 mg Q12H JONATHAN Administration Protocol Hydrocortisone Sodium Succinate 100 mg 11/13/16 09:45 11/13/16 10:10 Solu-Cortef IVP 100 mg Q8 JONATHAN Administration Meropenem 1g/NS 100mL IVPB 1 gm in 100 mls @ 100 mls/hr 11/12/16 14:00 05:09 Meropenem 1g/Ns 100ml Ivpb IVPB 11/19/16 08:31 100 mls/hr Q8 JONATHAN Administration Protocol NOREPINEPHRINE BIT/0.9 % NACL 4 mg in 250 mls @ 9.375 mls/hr 11/12/16 19:48 11/13/16 11:10 Levophed 4 Mg/ 250 Ml Ns Premixed IV 0 mcg/min .Q24H PRN 0 mls/hr TITRATE PER MD ORDER Titration Protocol 2.5 MCG/MIN Levothyroxine Sodium 200 mcg 11/12/16 10:00 11/13/16 09:21 Synthroid PO 200 mcg DAILY JONATHAN Administration Lidocaine 1 ea 11/12/16 10:00 11/13/16 09:23 Lidoderm TD 1 ea DAILY JONATHAN Administration Non-Formulary Medication 50,000 unit 11/12/16 10:00 11/12/16 10:36 Cholecalciferol (Vitamin D3) [D3-50] PO Not Given QWK JONATHAN Non-Formulary Medication 10 mg 11/12/16 10:00 11/12/16 10:36 Lenalidomide [Revlimid] PO Not Given DAILY JONATHAN Potassium Chloride 20 meq 11/12/16 10:00 11/13/16 09:23 K-Dur 20 Meq Er Tab PO 20 meq DAILY JONATHAN Administration - Patient Studies Lab Studies: Lab Studies 11/13/16 11/13/16 11/13/16 Range/Units 06:00 06:00 06:00 WBC (4.5-11.0) 10^3/ul RBC (3.5-6.1) 10^6/uL Hgb (12.0-16.0) g/dL Hct (36.0-48.0) % MCV (80.0-105.0) fl MCH (25.0-35.0) pg MCHC (31.0-37.0) g/dl RDW (11.5-14.5) % Plt Count (120.0-450.0) 10^3/uL MPV (7.0-11.0) fl Neutrophils % (Manual) (50.0-70.0) % Band Neutrophils % (0-2) % Lymphocytes % (Manual) (22.0-35.0) % Monocytes % (Manual) (1.0-6.0) % Eosinophils % (Manual) (0.0-3.0) % Basophils % (Manual) (0.0-1.0) % Platelet Evaluation (NORMAL) Hypochromasia pCO2 (35-45) mm/Hg pO2 (80-100) mm/Hg HCO3 (21-28) mmol/L ABG pH (7.35-7.45) ABG Total CO2 (22-28) mmol.L ABG O2 Saturation (95-98) % ABG O2 Content (15-23) ML/dl ABG Base Excess (-2.0-3.0) mmol/L ABG Hemoglobin (11.7-17.4) g/dL ABG Carboxyhemoglobin (0.5-1.5) % POC ABG HHb (Measured) (0-5) % ABG Methemoglobin (0.0-3.0) % ABG O2 Capacity (16-24) mL/dl VBG pH (7.32-7.43) VBG pCO2 (40-60) VBG HCO3 (21-28) mmol/l VBG Total CO2 (22-28) mmol.L VBG O2 Sat (Calc) (40-65) % VBG Base Excess (0.0-2.0) mmol/L VBG Potassium (3.6-5.2) mmol/L Hgb O2 Saturation (95.0-98.0) % Sodium 142 (132-148) mmol/L Chloride 117 H (98-107) mmol/L Glucose (65-105) mg/dl Lactate (0.7-2.1) mmol/L FiO2 % Potassium 3.6 (3.6-5.0) mmol/L Carbon Dioxide 17 L (21-33) mmol/L Anion Gap 12 (10-20) BUN 13 (7-21) mg/dL Creatinine 0.8 (0.5-1.4) mg/dL Est GFR ( Amer) > 60 Est GFR (Non-Af Amer) > 60 POC Glucose (mg/dL) (65-110) mg/dL Random Glucose 82 (70-110) mg/dL Hemoglobin A1c 5.3 (4.2-6.5) % Calcium 6.5 L* (8.4-10.5) mg/dL Phosphorus 2.8 (2.5-4.5) mg/dL Magnesium 1.2 L (1.7-2.2) mg/dL Total Bilirubin 0.9 (0.2-1.3) mg/dL AST 37 (15-39) U/L ALT 38 (7-56) U/L Alkaline Phosphatase 51 (38-133) U/L Lactate Dehydrogenase (333-699) U/L Total Creatine Kinase (35-230) U/L CK-MB (CK-2) (0.0-3.6) ng/mL CK-MB (CK-2) % Troponin I 0.36 H* D ng/mL Total Protein 5.2 L (5.8-8.3) g/dL Albumin 2.4 L (3.0-4.8) g/dL Globulin 2.8 gm/dL Albumin/Globulin Ratio 0.9 L (1.1-1.8) Triglycerides 90 (35-160) mg/dL Cholesterol 79 L (130-200) mg/dL LDL Cholesterol Direct < 30 (0-129) mg/dL HDL Cholesterol 31 (29-60) mg/dL TSH 3rd Generation < 0.0 L (0.46-4.68) MIU/ml Venous Blood Potassium (3.6-5.2) mmol/L 11/13/16 11/12/16 11/12/16 Range/Units 06:00 15:33 15:33 WBC 6.2 D 4.3 L D (4.5-11.0) 10^3/ul RBC 2.34 L 2.41 L (3.5-6.1) 10^6/uL Hgb 7.2 L 7.6 L (12.0-16.0) g/dL Hct 23.0 L 23.7 L (36.0-48.0) % MCV 98.3 98.3 (80.0-105.0) fl MCH 30.8 31.5 (25.0-35.0) pg MCHC 31.3 32.1 (31.0-37.0) g/dl RDW 17.6 H 16.8 H (11.5-14.5) % Plt Count 80 L 90 L (120.0-450.0) 10^3/uL MPV 8.9 8.5 (7.0-11.0) fl Neutrophils % (Manual) 58 (50.0-70.0) % Band Neutrophils % 14 H* (0-2) % Lymphocytes % (Manual) 16 L (22.0-35.0) % Monocytes % (Manual) 10 H (1.0-6.0) % Eosinophils % (Manual) 1 (0.0-3.0) % Basophils % (Manual) 1 (0.0-1.0) % Platelet Evaluation Low (NORMAL) Hypochromasia 1+ pCO2 (35-45) mm/Hg pO2 (80-100) mm/Hg HCO3 (21-28) mmol/L ABG pH (7.35-7.45) ABG Total CO2 (22-28) mmol.L ABG O2 Saturation (95-98) % ABG O2 Content (15-23) ML/dl ABG Base Excess (-2.0-3.0) mmol/L ABG Hemoglobin (11.7-17.4) g/dL ABG Carboxyhemoglobin (0.5-1.5) % POC ABG HHb (Measured) (0-5) % ABG Methemoglobin (0.0-3.0) % ABG O2 Capacity (16-24) mL/dl VBG pH (7.32-7.43) VBG pCO2 (40-60) VBG HCO3 (21-28) mmol/l VBG Total CO2 (22-28) mmol.L VBG O2 Sat (Calc) (40-65) % VBG Base Excess (0.0-2.0) mmol/L VBG Potassium (3.6-5.2) mmol/L Hgb O2 Saturation (95.0-98.0) % Sodium 138 (132-148) mmol/L Chloride 113 H (98-107) mmol/L Glucose (65-105) mg/dl Lactate (0.7-2.1) mmol/L FiO2 % Potassium 3.5 L (3.6-5.0) mmol/L Carbon Dioxide 17 L (21-33) mmol/L Anion Gap 12 (10-20) BUN 12 (7-21) mg/dL Creatinine 0.9 (0.5-1.4) mg/dL Est GFR ( Amer) > 60 Est GFR (Non-Af Amer) > 60 POC Glucose (mg/dL) (65-110) mg/dL Random Glucose 80 (70-110) mg/dL Hemoglobin A1c (4.2-6.5) % Calcium 7.0 L (8.4-10.5) mg/dL Phosphorus (2.5-4.5) mg/dL Magnesium (1.7-2.2) mg/dL Total Bilirubin 2.1 H (0.2-1.3) mg/dL AST 34 (15-39) U/L ALT 32 (7-56) U/L Alkaline Phosphatase 58 (38-133) U/L Lactate Dehydrogenase 335 (333-699) U/L Total Creatine Kinase 432 H (35-230) U/L CK-MB (CK-2) 2.6 (0.0-3.6) ng/mL CK-MB (CK-2) % Cancelled Troponin I 0.81 H* D ng/mL Total Protein 5.0 L (5.8-8.3) g/dL Albumin 2.3 L (3.0-4.8) g/dL Globulin 2.7 gm/dL Albumin/Globulin Ratio 0.9 L (1.1-1.8) Triglycerides (35-160) mg/dL Cholesterol (130-200) mg/dL LDL Cholesterol Direct (0-129) mg/dL HDL Cholesterol (29-60) mg/dL TSH 3rd Generation (0.46-4.68) MIU/ml Venous Blood Potassium (3.6-5.2) mmol/L 11/12/16 11/12/16 11/12/16 Range/Units 15:33 15:18 15:11 WBC (4.5-11.0) 10^3/ul RBC (3.5-6.1) 10^6/uL Hgb (12.0-16.0) g/dL Hct (36.0-48.0) % MCV (80.0-105.0) fl MCH (25.0-35.0) pg MCHC (31.0-37.0) g/dl RDW (11.5-14.5) % Plt Count (120.0-450.0) 10^3/uL MPV (7.0-11.0) fl Neutrophils % (Manual) (50.0-70.0) % Band Neutrophils % (0-2) % Lymphocytes % (Manual) (22.0-35.0) % Monocytes % (Manual) (1.0-6.0) % Eosinophils % (Manual) (0.0-3.0) % Basophils % (Manual) (0.0-1.0) % Platelet Evaluation (NORMAL) Hypochromasia pCO2 33 L (35-45) mm/Hg pO2 39 36.0 L* (80-100) mm/Hg HCO3 17.8 L (21-28) mmol/L ABG pH 7.34 L (7.35-7.45) ABG Total CO2 18.8 L (22-28) mmol.L ABG O2 Saturation 76.2 L (95-98) % ABG O2 Content 8.3 L (15-23) ML/dl ABG Base Excess -7.2 L (-2.0-3.0) mmol/L ABG Hemoglobin 7.8 L (11.7-17.4) g/dL ABG Carboxyhemoglobin 1.4 (0.5-1.5) % POC ABG HHb (Measured) 23.5 H (0-5) % ABG Methemoglobin 0.0 (0.0-3.0) % ABG O2 Capacity 10.9 L (16-24) mL/dl VBG pH 7.34 (7.32-7.43) VBG pCO2 35.0 L (40-60) VBG HCO3 18.9 L (21-28) mmol/l VBG Total CO2 20.0 L (22-28) mmol.L VBG O2 Sat (Calc) 79.7 H (40-65) % VBG Base Excess -6.1 L (0.0-2.0) mmol/L VBG Potassium 3.6 (3.6-5.2) mmol/L Hgb O2 Saturation 75.2 L (95.0-98.0) % Sodium 141.0 (132-148) mmol/L Chloride 114.0 H (98-107) mmol/L Glucose 83 (65-105) mg/dl Lactate 1.6 (0.7-2.1) mmol/L FiO2 21.0 36.0 % Potassium (3.6-5.0) mmol/L Carbon Dioxide (21-33) mmol/L Anion Gap (10-20) BUN (7-21) mg/dL Creatinine (0.5-1.4) mg/dL Est GFR ( Amer) Est GFR (Non-Af Amer) POC Glucose (mg/dL) 93 (65-110) mg/dL Random Glucose (70-110) mg/dL Hemoglobin A1c (4.2-6.5) % Calcium (8.4-10.5) mg/dL Phosphorus (2.5-4.5) mg/dL Magnesium (1.7-2.2) mg/dL Total Bilirubin (0.2-1.3) mg/dL AST (15-39) U/L ALT (7-56) U/L Alkaline Phosphatase (38-133) U/L Lactate Dehydrogenase (333-699) U/L Total Creatine Kinase (35-230) U/L CK-MB (CK-2) (0.0-3.6) ng/mL CK-MB (CK-2) % Troponin I ng/mL Total Protein (5.8-8.3) g/dL Albumin (3.0-4.8) g/dL Globulin gm/dL Albumin/Globulin Ratio (1.1-1.8) Triglycerides (35-160) mg/dL Cholesterol (130-200) mg/dL LDL Cholesterol Direct (0-129) mg/dL HDL Cholesterol (29-60) mg/dL TSH 3rd Generation (0.46-4.68) MIU/ml Venous Blood Potassium 3.6 (3.6-5.2) mmol/L Laboratory Results - last 24 hr 11/12/16 11/12/16 11/12/16 15:11 15:18 15:33 WBC RBC Hgb Hct MCV MCH MCHC RDW Plt Count MPV Neutrophils % (Manual) Band Neutrophils % Lymphocytes % (Manual) Monocytes % (Manual) Eosinophils % (Manual) Basophils % (Manual) Platelet Evaluation Hypochromasia pCO2 33 L pO2 36.0 L* 39 HCO3 17.8 L ABG pH 7.34 L ABG Total CO2 18.8 L ABG O2 Saturation 76.2 L ABG O2 Content 8.3 L ABG Base Excess -7.2 L ABG Hemoglobin 7.8 L ABG Carboxyhemoglobin 1.4 POC ABG HHb (Measured) 23.5 H ABG Methemoglobin 0.0 ABG O2 Capacity 10.9 L VBG pH 7.34 VBG pCO2 35.0 L VBG HCO3 18.9 L VBG Total CO2 20.0 L VBG O2 Sat (Calc) 79.7 H VBG Base Excess -6.1 L VBG Potassium 3.6 Hgb O2 Saturation 75.2 L Sodium 141.0 Chloride 114.0 H Glucose 83 Lactate 1.6 FiO2 36.0 21.0 Potassium Carbon Dioxide Anion Gap BUN Creatinine Est GFR ( Amer) Est GFR (Non-Af Amer) POC Glucose (mg/dL) 93 Random Glucose Hemoglobin A1c Calcium Phosphorus Magnesium Total Bilirubin AST ALT Alkaline Phosphatase Lactate Dehydrogenase Total Creatine Kinase CK-MB (CK-2) CK-MB (CK-2) % Troponin I Total Protein Albumin Globulin Albumin/Globulin Ratio Triglycerides Cholesterol LDL Cholesterol Direct HDL Cholesterol TSH 3rd Generation Venous Blood Potassium 3.6 11/12/16 11/12/16 11/13/16 15:33 15:33 06:00 WBC 4.3 L D 6.2 D RBC 2.41 L 2.34 L Hgb 7.6 L 7.2 L Hct 23.7 L 23.0 L MCV 98.3 98.3 MCH 31.5 30.8 MCHC 32.1 31.3 RDW 16.8 H 17.6 H Plt Count 90 L 80 L MPV 8.5 8.9 Neutrophils % (Manual) 58 Band Neutrophils % 14 H* Lymphocytes % (Manual) 16 L Monocytes % (Manual) 10 H Eosinophils % (Manual) 1 Basophils % (Manual) 1 Platelet Evaluation Low Hypochromasia 1+ pCO2 pO2 HCO3 ABG pH ABG Total CO2 ABG O2 Saturation ABG O2 Content ABG Base Excess ABG Hemoglobin ABG Carboxyhemoglobin POC ABG HHb (Measured) ABG Methemoglobin ABG O2 Capacity VBG pH VBG pCO2 VBG HCO3 VBG Total CO2 VBG O2 Sat (Calc) VBG Base Excess VBG Potassium Hgb O2 Saturation Sodium 138 Chloride 113 H Glucose Lactate FiO2 Potassium 3.5 L Carbon Dioxide 17 L Anion Gap 12 BUN 12 Creatinine 0.9 Est GFR ( Amer) > 60 Est GFR (Non-Af Amer) > 60 POC Glucose (mg/dL) Random Glucose 80 Hemoglobin A1c Calcium 7.0 L Phosphorus Magnesium Total Bilirubin 2.1 H AST 34 ALT 32 Alkaline Phosphatase 58 Lactate Dehydrogenase 335 Total Creatine Kinase 432 H CK-MB (CK-2) 2.6 CK-MB (CK-2) % Cancelled Troponin I 0.81 H* D Total Protein 5.0 L Albumin 2.3 L Globulin 2.7 Albumin/Globulin Ratio 0.9 L Triglycerides Cholesterol LDL Cholesterol Direct HDL Cholesterol TSH 3rd Generation Venous Blood Potassium 11/13/16 11/13/16 11/13/16 06:00 06:00 06:00 WBC RBC Hgb Hct MCV MCH MCHC RDW Plt Count MPV Neutrophils % (Manual) Band Neutrophils % Lymphocytes % (Manual) Monocytes % (Manual) Eosinophils % (Manual) Basophils % (Manual) Platelet Evaluation Hypochromasia pCO2 pO2 HCO3 ABG pH ABG Total CO2 ABG O2 Saturation ABG O2 Content ABG Base Excess ABG Hemoglobin ABG Carboxyhemoglobin POC ABG HHb (Measured) ABG Methemoglobin ABG O2 Capacity VBG pH VBG pCO2 VBG HCO3 VBG Total CO2 VBG O2 Sat (Calc) VBG Base Excess VBG Potassium Hgb O2 Saturation Sodium 142 Chloride 117 H Glucose Lactate FiO2 Potassium 3.6 Carbon Dioxide 17 L Anion Gap 12 BUN 13 Creatinine 0.8 Est GFR ( Amer) > 60 Est GFR (Non-Af Amer) > 60 POC Glucose (mg/dL) Random Glucose 82 Hemoglobin A1c 5.3 Calcium 6.5 L* Phosphorus 2.8 Magnesium 1.2 L Total Bilirubin 0.9 AST 37 ALT 38 Alkaline Phosphatase 51 Lactate Dehydrogenase Total Creatine Kinase CK-MB (CK-2) CK-MB (CK-2) % Troponin I 0.36 H* D Total Protein 5.2 L Albumin 2.4 L Globulin 2.8 Albumin/Globulin Ratio 0.9 L Triglycerides 90 Cholesterol 79 L LDL Cholesterol Direct < 30 HDL Cholesterol 31 TSH 3rd Generation < 0.0 L Venous Blood Potassium EKG/Cardiology Studies: Cardiology / EKG Studies 11/12/16 15:17 EKG [ELECTROCARDIOGRAM] Stat Comment: Reason For Exam: hypotensive Review of Systems - EENT Eyes: UNREMARKABLE Ears: UNREMARKABLE Nose/Mouth/Throat: UNREMARKABLE - Breasts Breasts: UNREMARKABLE - Cardiovascular Cardiovascular: UNREMARKABLE - Respiratory Respiratory: UNREMARKABLE - Gastrointestinal Gastrointestinal: UNREMARKABLE - Genitourinary Genitourinary: UNREMARKABLE - Reproductive: Female Reproductive:Female: UNREMARKABLE Critical Care Progress Note - Ventilator Checklist Daily Assessment of Readiness to Wean: Yes Daily Spontaneous Breathing Trial: Yes PUD Prophalyxis: Yes DVT Prophylaxis: Yes Oral Care with Chlorhexidine Gluconate {CHG}: Yes - Nutrition Nutrition: Nutrition Category Date Time Status Liquid Diet [DIET] Diets 11/12/16 Dinner Ordered Assessment/Plan - Assessment and Plan (Free Text) Assessment: 81 y/o F w/ Sepsis w/ resolving septic shock Off vasopressors this morning. 7 L of NS given. SBP>90 Blood cx show Gram- rods and Urine cx as well. On Broad spectrum abx by ID. Diet restarted. No new complaints. New Lower ext DVT on Lovenox BID PPi cc time 45 min
[2016-11-13] MEDS: LENALIDOMIDE 10 MG PO SCH (13:36)
--- NOTE | 2016-11-13 15:13 | PN ---
DATE: 11/13/2016 REASON FOR THE CONSULTATION: Followup hypotension, positive troponin, sepsis, septic shock, bandemia, on Levophed. BRIEF SUBJECTIVE: The patient is lying flat. Denies any chest pain, shortness of breath, or any palpitations. OBJECTIVE: GENERAL: Lying comfortable on ICU, still on Levophed 1 mcg. VITAL SIGNS: As follows, temperature afebrile, heart rate 60, blood pressure 106/62. HEENT: PERRLA. Extraocular muscles intact. NECK: Supple. No carotid bruit. No thyromegaly. CHEST: Clear to auscultation. HEART: S1 and S2 regular. ABDOMEN: Soft. EXTREMITIES: Clubbing and cyanosis negative. LABORATORY DATA: Blood workup as follows; WBC 6.2, hemoglobin 7.8, hematocrit 23, platelet count 80. Band neutrophil 14. Chemistry shows sodium 140, potassium 3.6, chloride 107, carbon dioxide 79, anion gap of , BUN 13, creatinine 0.8. Troponin 0.36. Total protein 5.12 albumin 2.4. IMPRESSION: Sepsis, bandemia, septic shock, started on dopamine. I will switch over to [place]-Synephrine that was in a weaning dose. Blood culture Gram-negative rods in urine and blood culture positive. History of permanent pacemaker placed by Dr. Vasquez in 01/2015 dual chamber pacemaker, 01/30/2015 MRI , history of multiple myeloma, hypothyroidism, depression, cerebrovascular accident, bone marrow transplantation. Last echo on 08/15/2016, shows normal left ventricular size, normal left ventricular wall thickness and normal left ventricular function. Ejection fraction reported 61%. No aortic wall stenosis, moderate aortic regurgitation, trace mitral regurgitation, [id number] tricuspid regurgitation. RV systolic pressure 42. Possible sepsis secondary to neutropenic. RECOMMENDATIONS: Broad-spectrum antibiotic, continue IV fluid. Wean off Levophed give 1 dose of IV albumin. Yesterday, was given to improve the plasma oncotic pressure and prevent from the shock. Continue broad-spectrum antibiotic. We will continue 1 mg/kg q.12 Lovenox, once off the Levophed we will start low dose of beta-carolina and blood pressures as tolerated. Overall, the patient's condition is critical. No plan at this time to take to the general labor forklift operator because the patient's bandemia and severe sepsis as well as platelet count is low. Possibly this small spill of troponin secondary to hemodynamic instability doubted the non-ST segment myocardial infarction. We will follow with you. Tried to treat underlying primary medical condition. No plan at this time, again to take to the general labor forklift operator again on an emergent basis as the patient is asymptomatic. No EKG changes. No chest pain. We will not treat borderline troponin. We will get echo to rule out endocarditis any structural heart disease. We will follow with you. Thank you Dr. Bernardo for providing me the opportunity in taking care of the patient Qamar Mendez. Yuridia Wayne MD
--- NOTE | 2016-11-14 00:44 | CP.PCM.PN ---
Subjective - Date & Time of Evaluation Date of Evaluation: 11/13/16 Time of Evaluation: 06:00 - Subjective Subjective: 81 year old female with a history of CVA, DM, hypothryoidism, pacemaker, multiple myeloma s/p autologous peripheral blood stem cell transplant in 2009 on maintenance Revlimid, admitted with possible cholecystitis and diverticulitis. She notes to increasing nausea and vomiting which was associated with fever and chills. She denies chest pain and shortness of breath. Objective - Vital Signs/Intake and Output Vital Signs (last 24 hours): Temp Pulse Resp BP Pulse Ox 98.6 F 60 15 163/62 H 100 11/14/16 00:00 11/14/16 00:20 11/14/16 00:20 11/14/16 00:00 11/14/16 00:20 Intake and Output: 11/13/16 11/14/16 18:59 06:59 Intake Total 1759.8 Output Total 500 Balance 1259.8 - Medications Medications: Current Medications Acetaminophen (Tylenol 325mg Tab) 650 mg PO Q6H PRN PRN Reason: Fever >100.4 F Last Admin: 11/13/16 20:30 Dose: 650 mg Aspirin (Aspirin Chewable) 81 mg PO DAILY [facility] Last Admin: 11/13/16 09:21 Dose: 81 mg Cyanocobalamin (Vitamin B12 1000 Mcg Tab) 1,000 mcg PO DAILY [facility] Last Admin: 11/13/16 09:23 Dose: 1,000 mcg Docusate Sodium (Colace) 100 mg PO TID [facility] Last Admin: 11/13/16 13:42 Dose: 100 mg Enoxaparin Sodium (Lovenox) 50 mg SC Q12H JONATHAN PRN Reason: Protocol Last Admin: 11/13/16 22:25 Dose: 50 mg Hydrocortisone Sodium Succinate (Solu-Cortef) 100 mg IVP Q8 [facility] Last Admin: 11/13/16 21:21 Dose: 100 mg Meropenem 1g/NS 100mL IVPB (Meropenem 1g/Ns 100ml Ivpb) 1 gm in 100 mls @ 100 mls/hr IVPB Q8 JONATHAN PRN Reason: Protocol Stop: 11/19/16 08:31 Last Admin: 11/13/16 21:22 Dose: 100 mls/hr NOREPINEPHRINE BIT/0.9 % NACL (Levophed 4 Mg/ 250 Ml Ns Premixed) 4 mg in 250 mls @ 9.375 mls/hr IV .Q24H PRN; Protocol; 2.5 MCG/MIN PRN Reason: TITRATE PER MD ORDER Last Titration: 11/13/16 11:10 Dose: 0 mcg/min, 0 mls/hr Levothyroxine Sodium (Synthroid) 200 mcg PO DAILY [facility] Last Admin: 11/13/16 09:21 Dose: 200 mcg Lidocaine (Lidoderm) 1 ea TD DAILY [facility] Last Admin: 11/13/16 09:23 Dose: 1 ea Non-Formulary Medication (Cholecalciferol (Vitamin D3) [D3-50]) 50,000 unit PO QWK [facility] Last Admin: 11/12/16 10:36 Dose: Not Given Non-Formulary Medication (Lenalidomide [Revlimid]) 10 mg PO DAILY [facility] Last Admin: 11/13/16 13:36 Dose: Not Given Potassium Chloride (K-Dur 20 Meq Er Tab) 20 meq PO DAILY [facility] Last Admin: 11/13/16 09:23 Dose: 20 meq Trazodone HCl (Desyrel) 25 mg PO HS [facility] Last Admin: 11/13/16 22:25 Dose: 25 mg - Labs Labs: 11/13/16 06:00 11/13/16 06:00 - Constitutional Appears: Well - Head Exam Head Exam: ATRAUMATIC, NORMAL INSPECTION, NORMOCEPHALIC - Eye Exam Eye Exam: EOMI, Normal appearance, PERRL Pupil Exam: NORMAL ACCOMODATION, PERRL - ENT Exam ENT Exam: Mucous Membranes Moist, Normal Exam - Neck Exam Neck Exam: Full ROM, Normal Inspection. absent: Lymphadenopathy - Respiratory Exam Respiratory Exam: Clear to Ausculation Bilateral, NORMAL BREATHING PATTERN - Cardiovascular Exam Cardiovascular Exam: REGULAR RHYTHM, +S1, +S2. absent: Murmur - GI/Abdominal Exam GI & Abdominal Exam: Soft, Normal Bowel Sounds. absent: Tenderness - Rectal Exam Rectal Exam: NORMAL INSPECTION - Exam Exam: Circumcision, NORMAL INSPECTION External exam: NORMAL EXTERNAL EXAM Speculum exam: NORMAL SPECULUM EXAM Bimanual exam: NORMAL BIMANUAL EXAM - Extremities Exam Extremities Exam: Full ROM, Normal Capillary Refill, Normal Inspection. absent : Joint Swelling, Pedal Edema - Back Exam Back Exam: NORMAL INSPECTION - Neurological Exam Neurological Exam: Alert, Awake, CN II-XII Intact, Normal Gait, Oriented x3 - Psychiatric Exam Psychiatric exam: Normal Affect, Normal Mood - Skin Skin Exam: Dry, Intact, Normal Color, Warm Assessment and Plan - Assessment and Plan (Free Text) Assessment: 81 y/o F w/ Sepsis w/ resolving septic shock Off vasopressors this morning. 7 L of NS given. SBP>90 Blood cx show Gram- rods and Urine cx as well. On Broad spectrum abx by ID. Diet restarted. No new complaints. New Lower ext DVT on Lovenox BID PPi h/o mm . d/d with dr ang[place] covering dr bynum
[2016-11-14] MEDS: Meropenem 1g/NS 100mL IVPB 1 GM/100 ML PIGGYBACK IVPB SCH ×3 (05:24→21:10)
[2016-11-14 07:06] LABS: ADD MANUAL DIFF? NO
[2016-11-14] MEDS ORDERED: Amikacin 500 MG in Dextrose 5% In Water 100 ML IVPB ONE (07:15)
[2016-11-14 07:17] LABS: GRAN # 4.76 (1.4-6.5); LYMPH # 0.6 (1.2-3.4); LYMPH % 9.6 % (22.0-35.0); MEAN CELL VOLUME 97.9 fl (80.0-105.0); MEAN CORPUSCULAR HEMOGLOBIN 31.1 pg (25.0-35.0); MEAN CORPUSCULAR HGB CONC 31.8 g/dl (31.0-37.0); MEAN PLATELET VOLUME 9.4 fl (7.0-11.0); MONO # 0.5 (0.1-0.6); MONO % 8.4 % (1.0-6.0); PLATELET COUNT 105 10^3/uL (120.0-450.0); RED CELL DISTRIBUTION WIDTH 17.4 % (11.5-14.5); WHITE BLOOD COUNT 5.8 10^3/ul (4.5-11.0)
[2016-11-14 07:28] LABS: ALKALINE PHOSPHATASE 68 U/L (38-133); ALT/SGPT 37 U/L (7-56); AST/SGOT 46 U/L (15-39); BILIRUBIN,TOTAL 0.5 mg/dL (0.2-1.3); BLOOD UREA NITROGEN 14 mg/dL (7-21); CARBON DIOXIDE 19 mmol/L (21-33); CHLORIDE 117 mmol/L (98-107); GFR AFRICAN-AMERICAN > 60; GLUCOSE,RANDOM 95 mg/dL (70-110); MAGNESIUM 2.2 mg/dL (1.7-2.2); PHOSPHOROUS 2.3 mg/dL (2.5-4.5); POTASSIUM 4.4 mmol/L (3.6-5.0); SODIUM 145 mmol/L (132-148); TOTAL PROTEIN 5.7 g/dL (5.8-8.3)
[2016-11-14 07:32] LABS: HEMATOCRIT 23.6 % (36.0-48.0)
[2016-11-14 07:37] LABS: CALCIUM 6.2 mg/dL (8.4-10.5)
[2016-11-14 07:39] LABS: TROPONIN I 0.13 ng/mL
[2016-11-14] MEDS: Levothyroxine 200 MCG TAB PO SCH (09:33)
[2016-11-14] MEDS: Potassium Chloride 20 mEq ER Tab PO SCH (09:34)
[2016-11-14] MEDS: Lidocaine 5% Patch TD SCH (09:34)
[2016-11-14] MEDS ORDERED: Simethicone 40 mg/0.6 ml Liquid (30 ml) PO PRN (09:53)
[2016-11-14] MEDS: Enoxaparin 60 mg Syringe SC SCH (10:36)
--- NOTE | 2016-11-14 15:49 | CP.PCM.PN ---
Subjective - Date & Time of Evaluation Date of Evaluation: 11/14/16 Time of Evaluation: 09:50 - Subjective Subjective: Comfortable, not in distress, no abdominal pain, still weak but feeling a little better today, no fevers overnight. Objective - Vital Signs/Intake and Output Vital Signs (last 24 hours): Temp Pulse Resp BP Pulse Ox 98.5 F 62 30 H 158/66 H 100 11/14/16 04:00 11/14/16 06:20 11/14/16 06:20 11/14/16 06:00 11/14/16 06:20 Intake and Output: 11/14/16 11/14/16 06:59 18:59 Intake Total 400 Output Total 500 Balance -100 - Medications Medications: Current Medications Acetaminophen (Tylenol 325mg Tab) 650 mg PO Q6H PRN PRN Reason: Fever >100.4 F Last Admin: 11/13/16 20:30 Dose: 650 mg Aspirin (Aspirin Chewable) 81 mg PO DAILY [facility] Last Admin: 11/13/16 09:21 Dose: 81 mg Cyanocobalamin (Vitamin B12 1000 Mcg Tab) 1,000 mcg PO DAILY [facility] Last Admin: 11/13/16 09:23 Dose: 1,000 mcg Docusate Sodium (Colace) 100 mg PO TID [facility] Last Admin: 11/13/16 13:42 Dose: 100 mg Enoxaparin Sodium (Lovenox) 50 mg SC Q12H [facility] PRN Reason: Protocol Last Admin: 11/13/16 22:25 Dose: 50 mg Hydrocortisone Sodium Succinate (Solu-Cortef) 100 mg IVP Q8 [facility] Last Admin: 11/14/16 05:24 Dose: 100 mg Meropenem 1g/NS 100mL IVPB (Meropenem 1g/Ns 100ml Ivpb) 1 gm in 100 mls @ 100 mls/hr IVPB Q8 [facility] PRN Reason: Protocol Stop: 11/19/16 08:31 Last Admin: 11/14/16 05:24 Dose: 100 mls/hr NOREPINEPHRINE BIT/0.9 % NACL (Levophed 4 Mg/ 250 Ml Ns Premixed) 4 mg in 250 mls @ 9.375 mls/hr IV .Q24H PRN; Protocol; 2.5 MCG/MIN PRN Reason: TITRATE PER MD ORDER Last Titration: 08/15/17 11:10 Dose: 0 mcg/min, 0 mls/hr Levothyroxine Sodium (Synthroid) 200 mcg PO DAILY [facility] Last Admin: 11/13/16 09:21 Dose: 200 mcg Lidocaine (Lidoderm) 1 ea TD DAILY [facility] Last Admin: 11/13/16 09:23 Dose: 1 ea Non-Formulary Medication (Cholecalciferol (Vitamin D3) [D3-50]) 50,000 unit PO QWK [facility] Last Admin: 11/12/16 10:36 Dose: Not Given Non-Formulary Medication (Lenalidomide [Revlimid]) 10 mg PO DAILY [facility] Last Admin: 11/13/16 13:36 Dose: Not Given Potassium Chloride (K-Dur 20 Meq Er Tab) 20 meq PO DAILY [facility] Last Admin: 11/13/16 09:23 Dose: 20 meq Trazodone HCl (Desyrel) 25 mg PO HS [facility] Last Admin: 11/13/16 22:25 Dose: 25 mg - Labs Labs: 11/13/16 06:00 11/13/16 06:00 - Constitutional Appears: Non-toxic, No Acute Distress - Head Exam Head Exam: NORMAL INSPECTION - Neck Exam Neck Exam: absent: Meningismus - Respiratory Exam Respiratory Exam: Decreased Breath Sounds - Cardiovascular Exam Cardiovascular Exam: +S1, +S2 - GI/Abdominal Exam GI & Abdominal Exam: Soft. absent: Tenderness Assessment and Plan - Assessment and Plan (Free Text) Plan: Assessment Sepsis due to possible cholecystitis and acute sigmoid diverticulitis and UTI with associated E. coli bacteremia HTN history of CVA DM multiple myeloma hypothyroidism S/P left pacemaker placement Plan willcontinue Merrem (day 3) pending HIDA scan to confirm cholecystitis will continue to monitor clinically
--- NOTE | 2016-11-14 17:51 | CARD ---
APPROVED REPORT EXAM: Two-dimensional and M-mode echocardiogram with Doppler and color Doppler. INDICATION VTE 2D DIMENSIONS Left Atrium (2D)4.6 (1.6-4.0cm)IVSd0.8 (0.7-1.1cm) LVDd4.5 (3.9-5.9cm)PWd1.0 (0.7-1.1cm) LVDs2.9 (2.5-4.0cm)FS (%) 36.2 % LVEF (%)66.0 (>50%) M-Mode DIMENSIONS Aortic Root3.40 (2.2-3.7cm)Aortic Cusp Exc.1.60 (1.5-2.0cm) Aortic Valve AoV Peak Iddkewlf098.0cm/Nasir Peak GR.10mmHgAI P 1/2 Duha445zr Mitral Valve MV E Gkbouide61.5cm/sMV A Bnflbypr97.2cm/sE/A ratio1.3 TDI Lateral E' Peak V9.55cm/sMedial E' Peak V6.34cm/sE/Lateral E'8.2 E/Medial E'12.4 Pulmonary Valve PV Peak Rpxufdhi53.3cm/sPV Peak Grad.1mmHg Tricuspid Valve TR Peak Dhvhbpsp187ma/sRAP [id number] Peak Gr.43mmHg [id number] LEFT VENTRICLE The left ventricle is normal size. There is normal left ventricular wall thickness. The left ventricular function is normal. EF-60-65% There is normal LV segmental wall motion. The left ventricular diastolic function is normal. No left ventricle thrombus noted on this study. There is no ventricular septal defect visualized. There is no left ventricular aneurysm. There is no mass noted in the left ventricle. RIGHT VENTRICLE The right ventricle is mildly dilated. There is normal right ventricular wall thickness. Systolic function is mildly to moderately reduced. ATRIA The left atrium is mildly dilated. The right atrium is borderline dilated. The interatrial septum is intact with no evidence for an atrial septal defect. AORTIC VALVE The aortic valve is thickened but opens well. The aortic valve is moderately sclerotic. There is moderate aortic regurgitation. There is no aortic valvular stenosis. There is no aortic valvular vegetation. MITRAL VALVE The mitral valve is thickened but opens well. Mitral regurgitation is mild to moderate. There is no mitral valve stenosis. There is no evidence of mitral valve prolapse. TRICUSPID VALVE The tricuspid valve leaflets are thickened , but open well. There is moderate tricuspid regurgitation.RVSP-5 There is mild pulmonary hypertension.3 mmof hg. There is no tricuspid valve stenosis. There is no tricuspid valve prolapse or vegetation. PULMONIC VALVE The pulmonic valve is mildly thickened. There is trace pulmonic valvular regurgitation. There is no pulmonic valvular stenosis. GREAT VESSELS The aortic root is normal in size. The ascending aorta is normal in size. The pulmonary artery is normal. The IVC is normal in size and collapses >50% with inspiration. PERICARDIAL EFFUSION There is mild to moderate left pleural effusion. There is a trace pericardial effusion. <Conclusion> The left ventricle is normal size. There is normal left ventricular wall thickness. The left ventricular function is normal.EF-60-65% There is moderate aortic regurgitation. Mitral regurgitation is mild to moderate. There is moderate tricuspid regurgitation.RVSP-5 There is mild pulmonary hypertension.3 mmof hg. The IVC is normal in size and collapses >50% with inspiration. There is mild to moderate left pleural effusion. There is a trace pericardial effusion. No vegetation or thrombus noted.
--- NOTE | 2016-11-14 19:24 | PN ---
REASON FOR CONSULTATION: Followup hypotension, positive troponin, sepsis, septic shock, bandemia, was on pressors, Levophed. SUBJECTIVE: Lying flat on the bed. Complaint of gaseous distention of the abdomen. Denies any chest pain. Denies any shortness of breath. Denies any palpitations. OBJECTIVE: GENERAL: Lying flat on the bed off Levophed. VITAL SIGNS: Temperature afebrile, heart rate 64, blood pressure 164/90. HEENT: PERRLA. Extraocular muscles intact. NECK: Supple. No carotid bruit. No thyromegaly. CHEST: Clear to auscultation. HEART: S1 and S2 regular. ABDOMEN: Soft. EXTREMITIES: Clubbing and cyanosis negative. LABORATORY DATA: WBC 5.4, hemoglobin 7.5, hematocrit 23.6, platelet count was 105. Chemistry showed sodium 145, potassium 4.4, chloride 107, carbon dioxide 19, anion gap of 13, BUN of 14, creatinine 0.7, calcium 6.2. Troponin trended down to 0.13. Total protein 5.0. Albumin 2.8, albumin and globulin ratio 1. TSH less than 0.0. IMPRESSION: Rule out hyperthyroidism, anemia, hypocalcemia, albuminemia, protein-calorie malnutrition, gram-negative sepsis, neutropenic sepsis, septic shock, positive troponin most likely secondary to hemodynamic instability, cannot rule out underlying coronary artery disease, non-ST segment myocardial infarction, history of cerebrovascular accident, history of permanent pacemaker by Dr. Guido on 01/30/2015 history of depression, hypothyroidism, history of cerebrovascular accident, history of bone marrow transplantation. Last echo on 08/15/2016 shows normal LV size ejection fraction 60%, no aortic stenosis, moderate aortic regurgitation, trace mitral regurgitation, [id number] tricuspid regurgitation, systolic pressure 42. RECOMMENDATIONS: Continue broad-spectrum antibiotic. We will resume antihypertensive medication, low dose beta-carolina, her blood pressure is stable now off Levophed. I will give Mylanta. We will supplement amp of calcium gluconate that was most likely secondary to hypoalbuminemia as well. Overall, the patient is improvement. Continue enoxaparin once troponin trends down. We will start from today DVT prophylaxis dose. Overall, the patient is critical, not a condition to go to the labor and delivery nurse at this time. We will hold levothyroxine because of TSH at 0.0 and repeat the TSH tomorrow, because TSH 0.0 probably secondary to high dose of levothyroxine. We will follow with you. As mentioned, the patient condition is critical. No plan to take to the labor and delivery nurse at this time until the patient is completely asymptomatic. Elevated troponin is most likely hemodynamic instability. Blood pressure was 60 on Levophed on admission. Hyperthyroidism is secondary to supplement of Synthroid, so we will hold Synthroid, repeat TSH in a day or two and then reassess the need of Synthroid dose. Low hemoglobin if the patient needs blood, we will leave up to hematology to decide whether patient needs blood products. We will follow with you. Thank you Dr. Bernardo for providing me the opportunity in taking care of Vanessa Foote. We will get the magnesium level in the morning, mag and phosphate. Yuridia Wayne MD cc: Sussy Bernardo MD
[2016-11-15] MEDS: Enoxaparin 60 mg Syringe SC SCH
--- NOTE | 2016-11-15 01:45 | CP.PCM.PN ---
Subjective - Date & Time of Evaluation Date of Evaluation: 11/14/16 Time of Evaluation: 10:30 - Subjective Subjective: Comfortable, not in distress, no abdominal pain, still weak but feeling a little better today, no fevers overnight. Objective - Vital Signs/Intake and Output Vital Signs (last 24 hours): Temp Pulse Resp BP Pulse Ox 98.6 F 63 18 143/55 L 100 11/14/16 16:15 11/14/16 17:37 11/14/16 16:15 11/14/16 17:37 11/14/16 16:15 Intake and Output: 11/14/16 11/15/16 18:59 06:59 Intake Total 240 420 Output Total 100 Balance 140 420 - Medications Medications: Current Medications Acetaminophen (Tylenol 325mg Tab) 650 mg PO Q6H PRN PRN Reason: Fever >100.4 F Last Admin: 11/14/16 21:31 Dose: 650 mg Aspirin (Aspirin Chewable) 81 mg PO DAILY [facility] Last Admin: 11/14/16 09:33 Dose: 81 mg Carvedilol (Coreg) 6.25 mg PO BID [facility] Last Admin: 11/14/16 17:37 Dose: 6.25 mg Cyanocobalamin (Vitamin B12 1000 Mcg Tab) 1,000 mcg PO DAILY [facility] Last Admin: 11/14/16 09:33 Dose: 1,000 mcg Docusate Sodium (Colace) 100 mg PO TID [facility] Last Admin: 11/14/16 23:26 Dose: Not Given Enoxaparin Sodium (Lovenox) 30 mg SC DAILY [facility] PRN Reason: Protocol Hydrocortisone Sodium Succinate (Solu-Cortef) 100 mg IVP Q8 [facility] Last Admin: 11/14/16 21:10 Dose: 100 mg Meropenem 1g/NS 100mL IVPB (Meropenem 1g/Ns 100ml Ivpb) 1 gm in 100 mls @ 100 mls/hr IVPB Q8 [facility] PRN Reason: Protocol Stop: 11/19/16 08:31 Last Admin: 11/14/16 21:10 Dose: 100 mls/hr NOREPINEPHRINE BIT/0.9 % NACL (Levophed 4 Mg/ 250 Ml Ns Premixed) 4 mg in 250 mls @ 9.375 mls/hr IV .Q24H PRN; Protocol; 2.5 MCG/MIN PRN Reason: TITRATE PER MD ORDER Last Titration: 11/13/16 11:10 Dose: 0 mcg/min, 0 mls/hr Levothyroxine Sodium (Synthroid) 200 mcg PO DAILY [facility] Last Admin: 11/14/16 09:33 Dose: 200 mcg Lidocaine (Lidoderm) 1 ea TD DAILY [facility] Last Admin: 11/14/16 09:34 Dose: 1 ea Lisinopril (Zestril) 5 mg PO DAILY [facility] Last Admin: 11/14/16 10:35 Dose: 5 mg Non-Formulary Medication (Cholecalciferol (Vitamin D3) [D3-50]) 50,000 unit PO QWK [facility] Last Admin: 11/12/16 10:36 Dose: Not Given Non-Formulary Medication (Lenalidomide [Revlimid]) 10 mg PO DAILY [facility] Last Admin: 11/13/16 13:36 Dose: Not Given Potassium Chloride (K-Dur 20 Meq Er Tab) 20 meq PO DAILY [facility] Last Admin: 11/14/16 09:34 Dose: 20 meq Simethicone (Mylicon Liq) 40 mg PO QID PRN PRN Reason: for stomach pain Last Admin: 11/14/16 17:38 Dose: 40 mg Trazodone HCl (Desyrel) 25 mg PO HS [facility] Last Admin: 11/14/16 21:10 Dose: 25 mg - Labs Labs: 11/14/16 06:30 11/14/16 06:30 - Constitutional Appears: Well - Head Exam Head Exam: ATRAUMATIC, NORMAL INSPECTION, NORMOCEPHALIC - Eye Exam Eye Exam: EOMI, Normal appearance, PERRL Pupil Exam: NORMAL ACCOMODATION, PERRL - ENT Exam ENT Exam: Mucous Membranes Moist, Normal Exam - Neck Exam Neck Exam: Full ROM, Normal Inspection. absent: Lymphadenopathy - Respiratory Exam Respiratory Exam: Clear to Ausculation Bilateral, NORMAL BREATHING PATTERN - Cardiovascular Exam Cardiovascular Exam: REGULAR RHYTHM, +S1, +S2. absent: Murmur - GI/Abdominal Exam GI & Abdominal Exam: Soft, Normal Bowel Sounds. absent: Tenderness - Rectal Exam Rectal Exam: NORMAL INSPECTION - Exam Exam: Circumcision, NORMAL INSPECTION External exam: NORMAL EXTERNAL EXAM Speculum exam: NORMAL SPECULUM EXAM Bimanual exam: NORMAL BIMANUAL EXAM - Extremities Exam Extremities Exam: Full ROM, Normal Capillary Refill, Normal Inspection. absent : Joint Swelling, Pedal Edema - Back Exam Back Exam: NORMAL INSPECTION - Neurological Exam Neurological Exam: Alert, Awake, CN II-XII Intact, Normal Gait, Oriented x3 - Psychiatric Exam Psychiatric exam: Normal Affect, Normal Mood - Skin Skin Exam: Dry, Intact, Normal Color, Warm Assessment and Plan - Assessment and Plan (Free Text) Assessment: Sepsis due to possible cholecystitis and acute sigmoid diverticulitis and UTI with associated E. coli bacteremia HTN history of CVA DM multiple myeloma hypothyroidism S/P left pacemaker placement Plan willcontinue Merrem (day 3) pending HIDA scan to confirm cholecystitis will continue to monitor clinically. severe anemia , need blood transfusion
[2016-11-15] MEDS: Meropenem 1g/NS 100mL IVPB 1 GM/100 ML PIGGYBACK IVPB SCH ×3 (05:30→21:15)
[2016-11-15 06:51] LABS: ADD MANUAL DIFF? NO
[2016-11-15 07:07] LABS: GRAN # 4.09 (1.4-6.5); GRAN % 77.2 % (50.0-68.0); HEMATOCRIT 24.2 % (36.0-48.0); LYMPH # 0.8 (1.2-3.4); LYMPH % 14.9 % (22.0-35.0); MEAN CELL VOLUME 97.2 fl (80.0-105.0); MEAN CORPUSCULAR HEMOGLOBIN 30.9 pg (25.0-35.0); MEAN CORPUSCULAR HGB CONC 31.8 g/dl (31.0-37.0); MEAN PLATELET VOLUME 9.4 fl (7.0-11.0); MONO # 0.4 (0.1-0.6); MONO % 7.9 % (1.0-6.0); PLATELET COUNT 112 10^3/uL (120.0-450.0); RED CELL DISTRIBUTION WIDTH 17.2 % (11.5-14.5); WHITE BLOOD COUNT 5.3 10^3/ul (4.5-11.0)
[2016-11-15 07:10] LABS: ALB/GLOB RATIO 0.9 (1.1-1.8); ALKALINE PHOSPHATASE 71 U/L (38-133); ALT/SGPT 34 U/L (7-56); AST/SGOT 23 U/L (15-39); BILIRUBIN,TOTAL 0.5 mg/dL (0.2-1.3); BLOOD UREA NITROGEN 15 mg/dL (7-21); CALCIUM 7.8 mg/dL (8.4-10.5); CARBON DIOXIDE 23 mmol/L (21-33); CHLORIDE 114 mmol/L (98-107); GFR AFRICAN-AMERICAN > 60; GLUCOSE,RANDOM 110 mg/dL (70-110); MAGNESIUM 1.8 mg/dL (1.7-2.2); PHOSPHOROUS 1.8 mg/dL (2.5-4.5); POTASSIUM 3.1 mmol/L (3.6-5.0); SODIUM 145 mmol/L (132-148); TOTAL PROTEIN 5.8 g/dL (5.8-8.3)
[2016-11-15] MEDS: Lidocaine 5% Patch TD SCH (09:33)
[2016-11-15] MEDS: Potassium Chloride 20 mEq ER Tab PO SCH (09:34)
[2016-11-15] MEDS: Enoxaparin 30 mg Syringe SC SCH (09:36)
[2016-11-15] MEDS ORDERED: Magnesium Sulfate 1 gm in D5W 1 GM/100 ML BAG IVPB ONE (09:58)
--- NOTE | 2016-11-15 14:58 | NM ---
PROCEDURE: Nuclear Medicine Hepatobiliary Scan HISTORY: rule out cholecystitis COMPARISON: None available. TECHNIQUE: 5.2 mCi of technetium 99m Mebrofenin was administered intravenously. Planar images of the abdomen were obtained at 5 min intervals to 60 mins. Delayed images were also obtained. FINDINGS: LIVER: Timely and homogenous uptake. COMMON BILE DUCT: identified at 5 mins. GALLBLADDER: identified at 30 mins. SMALL BOWEL: Identified at 30 mins. IMPRESSION: Normal Hepatobiliary Scan. The cystic duct is patent.
[2016-11-15] MEDS ORDERED: Potassium & Sodium Phosphate PO STA (15:02)
--- NOTE | 2016-11-15 17:44 | CP.PCM.PN ---
Subjective - Date & Time of Evaluation Date of Evaluation: 11/15/16 Time of Evaluation: 09:35 - Subjective Subjective: Feeling better, no more nausea, no vomiting, no abdominal pain. Objective - Vital Signs/Intake and Output Vital Signs (last 24 hours): Temp Pulse Resp BP Pulse Ox 99.1 F 65 20 159/65 H 99 11/15/16 17:04 11/15/16 17:04 11/15/16 17:04 11/15/16 17:04 11/15/16 17:04 Intake and Output: 11/15/16 11/15/16 06:59 18:59 Intake Total 540 Balance 540 - Medications Medications: Current Medications Acetaminophen (Tylenol 325mg Tab) 650 mg PO Q6H PRN PRN Reason: Fever >100.4 F Last Admin: 11/14/16 21:31 Dose: 650 mg Aspirin (Aspirin Chewable) 81 mg PO DAILY [facility] Last Admin: 11/15/16 09:34 Dose: 81 mg Carvedilol (Coreg) 6.25 mg PO BID [facility] Last Admin: 11/15/16 09:35 Dose: 6.25 mg Cyanocobalamin (Vitamin B12 1000 Mcg Tab) 1,000 mcg PO DAILY [facility] Last Admin: 11/15/16 09:34 Dose: 1,000 mcg Docusate Sodium (Colace) 100 mg PO TID [facility] Last Admin: 11/15/16 14:12 Dose: Not Given Enoxaparin Sodium (Lovenox) 30 mg SC DAILY [facility] PRN Reason: Protocol Last Admin: 11/15/16 09:36 Dose: 30 mg Hydrocortisone Sodium Succinate (Solu-Cortef) 100 mg IVP Q8 [facility] Last Admin: 11/15/16 16:16 Dose: 100 mg Meropenem 1g/NS 100mL IVPB (Meropenem 1g/Ns 100ml Ivpb) 1 gm in 100 mls @ 100 mls/hr IVPB Q8 [facility] PRN Reason: Protocol Stop: 11/19/16 08:31 Last Admin: 11/15/16 14:12 Dose: Not Given NOREPINEPHRINE BIT/0.9 % NACL (Levophed 4 Mg/ 250 Ml Ns Premixed) 4 mg in 250 mls @ 9.375 mls/hr IV .Q24H PRN; Protocol; 2.5 MCG/MIN PRN Reason: TITRATE PER MD ORDER Last Titration: 11/13/16 11:10 Dose: 0 mcg/min, 0 mls/hr Levothyroxine Sodium (Synthroid) 200 mcg PO DAILY [facility] Last Admin: 11/14/16 09:33 Dose: 200 mcg Lidocaine (Lidoderm) 1 ea TD DAILY [facility] Last Admin: 11/15/16 09:33 Dose: 1 ea Lisinopril (Zestril) 5 mg PO DAILY [facility] Last Admin: 11/15/16 09:34 Dose: 5 mg Magnesium Oxide (Mag-Ox) 400 mg PO BID [facility] Stop: 11/16/16 23:59 Non-Formulary Medication (Cholecalciferol (Vitamin D3) [D3-50]) 50,000 unit PO QWK [facility] Last Admin: 11/12/16 10:36 Dose: Not Given Non-Formulary Medication (Lenalidomide [Revlimid]) 10 mg PO DAILY [facility] Last Admin: 11/13/16 13:36 Dose: Not Given Potassium Chloride (K-Dur 20 Meq Er Tab) 20 meq PO DAILY [facility] Last Admin: 11/15/16 09:34 Dose: 20 meq Potassium Phos/Sodium Phos (Neutra-Phos) 1 pkt PO TID [facility] Stop: 11/16/16 23:00 Simethicone (Mylicon Liq) 40 mg PO QID PRN PRN Reason: for stomach pain Last Admin: 11/14/16 17:38 Dose: 40 mg Trazodone HCl (Desyrel) 25 mg PO HS [facility] Last Admin: 11/14/16 21:10 Dose: 25 mg - Labs Labs: 11/15/16 06:30 11/15/16 06:30 - Constitutional Appears: Non-toxic, No Acute Distress - Head Exam Head Exam: NORMAL INSPECTION - ENT Exam ENT Exam: Mucous Membranes Moist - Neck Exam Neck Exam: absent: Lymphadenopathy, Meningismus - Respiratory Exam Respiratory Exam: Decreased Breath Sounds - Cardiovascular Exam Cardiovascular Exam: +S1, +S2 - GI/Abdominal Exam GI & Abdominal Exam: Soft. absent: Tenderness Assessment and Plan - Assessment and Plan (Free Text) Plan: Assessment Sepsis R/O acute cholecystitis and acute sigmoid diverticulitis and UTI with associated E. coli bacteremia HTN history of CVA DM multiple myeloma hypothyroidism S/P left pacemaker placement Plan willcontinue Merrem (day 4) pending HIDA scan to confirm cholecystitis will continue to monitor clinically
[2016-11-15] MEDS: Magnesium Oxide 400 mg Tab UD PO SCH (17:52)
[2016-11-15] MEDS: Potassium & Sodium Phosphate PO SCH (17:52)
--- NOTE | 2016-11-15 20:41 | PN ---
DATE: 11/15/2016 REASON FOR CONSULTATION: Follow up hypotension, tachycardia, gram-negative sepsis, bandemia. SUBJECTIVE: The patient is now in 3R. Denies any chest pain, shortness of breath, or any palpitation. OBJECTIVE: GENERAL: Lying flat on the bed, not in any apparent distress, feels better. VITAL SIGNS: Temperature, afebrile. Heart rate 60, blood pressure 133/65. HEENT: PERRLA. Extraocular muscles intact. NECK: Supple. No carotid bruit. No thyromegaly. CHEST: Clear to auscultation. HEART: S1, S2 regular. ABDOMEN: Soft. EXTREMITIES: Clubbing, cyanosis negative. LABORATORY DATA: Blood workup as follows: WBC 5.3, hemoglobin 7.5, hematocrit 24.2, platelet count was 112. Chemistry: Sodium 145, potassium 3.1, chloride 114, carbon dioxide 23, anion gap of 11, BUN of 15, creatinine 0.6, calcium 7.8. Phosphorous 1.8, magnesium 1.8. Total protein 5.8. Albumin 2.8, albumin-globulin ratio 0.9. IMPRESSION: Multiple electrolyte abnormality, hypokalemia, hypophosphatemia, severe anemia, multiple myeloma status post bone marrow transplantation with gram-negative sepsis, *------* status post permanent pacemaker 01/30/2015, [facility] dual chamber pacemaker. Last echo of 08/15/2016 shows normal LV size ejection fraction 50%, no aortic stenosis, moderate aortic regurgitation, trace mitral regurgitation, mild to moderate tricuspid regurgitation, systolic pressure 42. RECOMMENDATION: Continue broad spectrum antibiotics as per ID. Resume antihypertensive medications. Low dose beta [place] has blood pressures well maintained. Positive troponin is most likely secondary to hemodynamic instability, no evidence for the ischemia or acute coronary syndrome noted. No plan for cardiac catheterization lab at this time. We will try to treat the patient medically. The patient is asymptomatic. Supplement potassium and phosphorous. We will give him Neutra-Phos 2 pack stat and 2 pack thrice daily. We will follow with you. Thank you Dr. Bernardo for providing me opportunity in taking care of the patient. The patient is off *------* and Levophed. Yesterday, TSH was 0.0 so Synthroid was held, we will repeat TSH in the morning. We will give 2 pack of Neutra stat and then 1 p.o. thrice daily. Resume antihypertensive medication as patient's blood pressure is stable off Levophed. Supplement magnesium also. Yuridia Wayne MD
--- NOTE | 2016-11-15 21:13 | CP.PCM.PN ---
Subjective - Date & Time of Evaluation Date of Evaluation: 11/15/16 Time of Evaluation: 18:00 - Subjective Subjective: Covering Dr. Dennsi No complaints. Deferred blood transfusion this morning but now agreeable to transfusion. Objective - Vital Signs/Intake and Output Vital Signs (last 24 hours): Temp Pulse Resp BP Pulse Ox 99.1 F 66 20 158/66 H 99 11/15/16 17:04 11/15/16 17:52 11/15/16 17:04 11/15/16 17:52 11/15/16 17:04 - Medications Medications: Current Medications Acetaminophen (Tylenol 325mg Tab) 650 mg PO Q6H PRN PRN Reason: Fever >100.4 F Last Admin: 11/14/16 21:31 Dose: 650 mg Aspirin (Aspirin Chewable) 81 mg PO DAILY [facility] Last Admin: 11/15/16 09:34 Dose: 81 mg Carvedilol (Coreg) 6.25 mg PO BID [facility] Last Admin: 11/15/16 17:52 Dose: 6.25 mg Cyanocobalamin (Vitamin B12 1000 Mcg Tab) 1,000 mcg PO DAILY [facility] Last Admin: 11/15/16 09:34 Dose: 1,000 mcg Docusate Sodium (Colace) 100 mg PO TID [facility] Last Admin: 11/15/16 14:12 Dose: Not Given Enoxaparin Sodium (Lovenox) 30 mg SC DAILY [facility] PRN Reason: Protocol Last Admin: 11/15/16 09:36 Dose: 30 mg Hydrocortisone Sodium Succinate (Solu-Cortef) 100 mg IVP Q8 [facility] Last Admin: 11/15/16 16:16 Dose: 100 mg Meropenem 1g/NS 100mL IVPB (Meropenem 1g/Ns 100ml Ivpb) 1 gm in 100 mls @ 100 mls/hr IVPB Q8 [facility] PRN Reason: Protocol Stop: 11/19/16 08:31 Last Admin: 11/15/16 14:12 Dose: Not Given NOREPINEPHRINE BIT/0.9 % NACL (Levophed 4 Mg/ 250 Ml Ns Premixed) 4 mg in 250 mls @ 9.375 mls/hr IV .Q24H PRN; Protocol; 2.5 MCG/MIN PRN Reason: TITRATE PER MD ORDER Last Titration: 11/13/16 11:10 Dose: 0 mcg/min, 0 mls/hr Levothyroxine Sodium (Synthroid) 200 mcg PO DAILY [facility] Last Admin: 11/14/16 09:33 Dose: 200 mcg Lidocaine (Lidoderm) 1 ea TD DAILY [facility] Last Admin: 11/15/16 09:33 Dose: 1 ea Lisinopril (Zestril) 5 mg PO DAILY [facility] Last Admin: 11/15/16 09:34 Dose: 5 mg Magnesium Oxide (Mag-Ox) 400 mg PO BID [facility] Stop: 11/16/16 23:59 Last Admin: 11/15/16 17:52 Dose: 400 mg Non-Formulary Medication (Cholecalciferol (Vitamin D3) [D3-50]) 50,000 unit PO QWK [facility] Last Admin: 11/12/16 10:36 Dose: Not Given Non-Formulary Medication (Lenalidomide [Revlimid]) 10 mg PO DAILY [facility] Last Admin: 11/13/16 13:36 Dose: Not Given Potassium Chloride (K-Dur 20 Meq Er Tab) 20 meq PO DAILY [facility] Last Admin: 11/15/16 09:34 Dose: 20 meq Potassium Phos/Sodium Phos (Neutra-Phos) 1 pkt PO TID [facility] Stop: 11/16/16 23:00 Last Admin: 11/15/16 17:52 Dose: 1 pkt Simethicone (Mylicon Liq) 40 mg PO QID PRN PRN Reason: for stomach pain Last Admin: 11/14/16 17:38 Dose: 40 mg Trazodone HCl (Desyrel) 25 mg PO HS [facility] Last Admin: 11/14/16 21:10 Dose: 25 mg - Labs Labs: 11/15/16 06:30 11/15/16 06:30 - Head Exam Head Exam: ATRAUMATIC - Eye Exam Eye Exam: Normal appearance - ENT Exam ENT Exam: Mucous Membranes Dry - Respiratory Exam Respiratory Exam: NORMAL BREATHING PATTERN - Cardiovascular Exam Cardiovascular Exam: +S1, +S2 - GI/Abdominal Exam GI & Abdominal Exam: Normal Bowel Sounds Assessment and Plan (1) Anemia Assessment & Plan: chronic disease and chemotherapy effect Revlimid on Hold now agreeable to PRBC transfusion; to receive 1 unit in AM Status: Acute (2) Thrombocytopenia Assessment & Plan: mild improving Status: Acute (3) Multiple myeloma Assessment & Plan: maintenance Revlimid on hold can continue as outpatient once completes antibiotics Status: Acute
--- NOTE | 2016-11-15 21:16 | CP.PCM.PN ---
Subjective - Date & Time of Evaluation Date of Evaluation: 11/14/16 Time of Evaluation: 16:00 - Subjective Subjective: Feeling better Objective - Vital Signs/Intake and Output Vital Signs (last 24 hours): Temp Pulse Resp BP Pulse Ox 99.1 F 66 20 158/66 H 99 11/15/16 17:04 11/15/16 17:52 11/15/16 17:04 11/15/16 17:52 11/15/16 17:04 - Medications Medications: Current Medications Acetaminophen (Tylenol 325mg Tab) 650 mg PO Q6H PRN PRN Reason: Fever >100.4 F Last Admin: 11/14/16 21:31 Dose: 650 mg Aspirin (Aspirin Chewable) 81 mg PO DAILY [facility] Last Admin: 11/15/16 09:34 Dose: 81 mg Carvedilol (Coreg) 6.25 mg PO BID [facility] Last Admin: 11/15/16 17:52 Dose: 6.25 mg Cyanocobalamin (Vitamin B12 1000 Mcg Tab) 1,000 mcg PO DAILY [facility] Last Admin: 11/15/16 09:34 Dose: 1,000 mcg Docusate Sodium (Colace) 100 mg PO TID [facility] Last Admin: 11/15/16 14:12 Dose: Not Given Enoxaparin Sodium (Lovenox) 30 mg SC DAILY [facility] PRN Reason: Protocol Last Admin: 11/15/16 09:36 Dose: 30 mg Hydrocortisone Sodium Succinate (Solu-Cortef) 100 mg IVP Q8 [facility] Last Admin: 11/15/16 16:16 Dose: 100 mg Meropenem 1g/NS 100mL IVPB (Meropenem 1g/Ns 100ml Ivpb) 1 gm in 100 mls @ 100 mls/hr IVPB Q8 [facility] PRN Reason: Protocol Stop: 11/19/16 08:31 Last Admin: 11/15/16 14:12 Dose: Not Given NOREPINEPHRINE BIT/0.9 % NACL (Levophed 4 Mg/ 250 Ml Ns Premixed) 4 mg in 250 mls @ 9.375 mls/hr IV .Q24H PRN; Protocol; 2.5 MCG/MIN PRN Reason: TITRATE PER MD ORDER Last Titration: 11/13/16 11:10 Dose: 0 mcg/min, 0 mls/hr Levothyroxine Sodium (Synthroid) 200 mcg PO DAILY [facility] Last Admin: 11/14/16 09:33 Dose: 200 mcg Lidocaine (Lidoderm) 1 ea TD DAILY [facility] Last Admin: 11/15/16 09:33 Dose: 1 ea Lisinopril (Zestril) 5 mg PO DAILY [facility] Last Admin: 11/15/16 09:34 Dose: 5 mg Magnesium Oxide (Mag-Ox) 400 mg PO BID [facility] Stop: 11/16/16 23:59 Last Admin: 11/15/16 17:52 Dose: 400 mg Non-Formulary Medication (Cholecalciferol (Vitamin D3) [D3-50]) 50,000 unit PO QWK [facility] Last Admin: 11/12/16 10:36 Dose: Not Given Non-Formulary Medication (Lenalidomide [Revlimid]) 10 mg PO DAILY [facility] Last Admin: 11/13/16 13:36 Dose: Not Given Potassium Chloride (K-Dur 20 Meq Er Tab) 20 meq PO DAILY [facility] Last Admin: 11/15/16 09:34 Dose: 20 meq Potassium Phos/Sodium Phos (Neutra-Phos) 1 pkt PO TID [facility] Stop: 11/16/16 23:00 Last Admin: 11/15/16 17:52 Dose: 1 pkt Simethicone (Mylicon Liq) 40 mg PO QID PRN PRN Reason: for stomach pain Last Admin: 11/14/16 17:38 Dose: 40 mg Trazodone HCl (Desyrel) 25 mg PO HS [facility] Last Admin: 11/14/16 21:10 Dose: 25 mg - Labs Labs: 11/15/16 06:30 11/15/16 06:30 - Head Exam Head Exam: ATRAUMATIC - Eye Exam Eye Exam: Normal appearance - ENT Exam ENT Exam: Mucous Membranes Dry - Respiratory Exam Respiratory Exam: NORMAL BREATHING PATTERN - Cardiovascular Exam Cardiovascular Exam: +S1, +S2 - GI/Abdominal Exam GI & Abdominal Exam: Normal Bowel Sounds Assessment and Plan (1) Anemia Assessment & Plan: anemia of chronic disease and chemotherapy chemotherapy tablet on hold transfusion support Status: Acute (2) Thrombocytopenia Assessment & Plan: mild, no intervention Status: Acute (3) Multiple myeloma Assessment & Plan: Revlimid on hold; to resume as outpatient. Status: Acute
--- NOTE | 2016-11-16 04:41 | PN ---
DATE: 11/15/2016 The patient is a 81 years old female. SUBJECTIVE: The patient was seen and examined on 11/15/2016, lying down comfortably. No nausea, vomiting, or diarrhea. No hematochezia. No swelling of the leg. No chest pain. No palpitation. Refusing blood transfusion. She knows she needs blood transfusion, but she does not want that. Education done and I told her that think about that, and we will plan again. Discussion done with the nurse practitioner, Blossom, about blood transfusion. PHYSICAL EXAMINATION: VITAL SIGNS: Temperature 99.1, pulse 86, blood pressure 150/66, and respiratory rate 20. HEENT: Head: Normocephalic and atraumatic. Eyes: PERRLA. Extraocular muscles intact. Conjunctivae clear. Nose patent. NECK: Supple. No carotid bruits, JVD, or thyromegaly. CHEST: Bilaterally symmetrical. HEART: S1 and S2 positive. LUNGS: Clear to auscultation. ABDOMEN: Soft. Bowel sounds are present. No organomegaly. EXTREMITIES: No edema. No cyanosis. NEUROLOGIC: The patient is awake and alert. Moving all four extremities. No focal deficits. MEDICATIONS: Aspirin, vitamin D, Colace, Coreg, trazodone, potassium, multivitamins, norepinephrine, Lidoderm, Lovenox, magnesium oxide, meropenem, and Mylicon. LABORATORY DATA: White blood cells are 5.3, hemoglobin 7.7, hematocrit 24.2, and platelets 112. Sodium 145, potassium 3.1, BUN 16, creatinine 0.6, calcium 7.8, and phosphorus 1.8. ASSESSMENT AND PLAN: The patient is a 81-year-old lady with hypokalemia, hyperchloremia, hypocalcemia, hypophosphatemia, positive troponin, proteinuria, hematuria, urinary tract infection, anemia, and multiple myeloma. [employer] is on the case. Blood transfusion offered, the patient refused, education done. Iron infusion given. Chronic disease, history of chemotherapy. Revlimid on hold because of infection. Thrombocytopenia, mild, improving, seen by Dr. Soni, rag collector; Dr. Yaneth Cadena, Infectious Disease; and Dr. Wayne, grid operator. The patient came with sepsis, rule out cholecystitis and acute sigmoid diverticulitis and urinary tract infection associated with Escherichia coli bacteremia, history of cerebrovascular accident, hypothyroidism, status post left pacemaker placement. We will continue . HIDA scan to confirm the cholecystitis. Gastrointestinal and deep vein thrombosis prophylaxis. Appreciate Dr. Yaneth Cadena's input, seen by the grid operator. History of bone marrow transplantation. According to the grid operator, positive troponin is most likely secondary to hemodynamic instability. No evidence of ischemia or acute coronary syndrome. We will follow up. Sussy Bernardo MD MTDD
[2016-11-16] MEDS: Meropenem 1g/NS 100mL IVPB 1 GM/100 ML PIGGYBACK IVPB SCH (05:31)
[2016-11-16 05:33] LABS: ADD MANUAL DIFF? NO
[2016-11-16 05:45] LABS: BASO # 0.01 K/mm3 (0.0-2.0); BASO % 0.3 % (0.0-3.0); GRAN # 2.39 (1.4-6.5); GRAN % 69.9 % (50.0-68.0); HEMATOCRIT 25.1 % (36.0-48.0); LYMPH # 0.7 (1.2-3.4); LYMPH % 19.3 % (22.0-35.0); MEAN CELL VOLUME 96.2 fl (80.0-105.0); MEAN CORPUSCULAR HGB CONC 32.3 g/dl (31.0-37.0); MEAN PLATELET VOLUME 9.5 fl (7.0-11.0); MONO # 0.4 (0.1-0.6); MONO % 10.5 % (1.0-6.0); PLATELET COUNT 120 10^3/uL (120.0-450.0); RED CELL DISTRIBUTION WIDTH 16.8 % (11.5-14.5); WHITE BLOOD COUNT 3.4 10^3/ul (4.5-11.0)
[2016-11-16 06:13] LABS: ALB/GLOB RATIO 0.9 (1.1-1.8); ALKALINE PHOSPHATASE 71 U/L (38-133); ALT/SGPT 34 U/L (7-56); AST/SGOT 21 U/L (15-39); BILIRUBIN,TOTAL 0.5 mg/dL (0.2-1.3); BLOOD UREA NITROGEN 14 mg/dL (7-21); CALCIUM 7.5 mg/dL (8.4-10.5); CARBON DIOXIDE 26 mmol/L (21-33); CHLORIDE 110 mmol/L (95-110); GFR AFRICAN-AMERICAN > 60; GLUCOSE,RANDOM 114 mg/dL (70-110); MAGNESIUM 1.9 mg/dL (1.7-2.2); PHOSPHOROUS 1.9 mg/dL (2.5-4.5); SODIUM 145 mmol/L (132-148); TOTAL PROTEIN 5.8 g/dL (5.8-8.3)
[2016-11-16] MEDS ORDERED: Potassium Chloride 20 mEq ER Tab PO ONE ×2 (08:45→13:00)
[2016-11-16] MEDS: Lidocaine 5% Patch TD SCH (09:47)
[2016-11-16] MEDS: Potassium & Sodium Phosphate PO SCH ×3 (09:55→17:07)
[2016-11-16] MEDS: Magnesium Oxide 400 mg Tab UD PO SCH ×2 (09:55→17:08)
[2016-11-16] MEDS: Potassium Chloride 20 mEq ER Tab PO SCH (09:58)
[2016-11-16] MEDS: cefTRIAXone 1 gm 1 GM/100 ML BAG IVPB SCH (09:59)
[2016-11-16] MEDS: Enoxaparin 30 mg Syringe SC SCH (09:59)
[2016-11-16] MEDS: metroNIDAZOLE IV 500 mg/100 ml 500 MG/100 ML BAG IVPB SCH ×2 (14:19→21:46)
[2016-11-16] MEDS: Nystatin 100,000 Units/gm Topical Pow(15 gm) TOP SCH (16:48)
--- NOTE | 2016-11-16 19:01 | CP.PCM.PN ---
Subjective - Date & Time of Evaluation Date of Evaluation: 11/16/16 Time of Evaluation: 10:00 - Subjective Subjective: Feeling better, although still feels nauseated when taking PO meds, no fevers overnight, no abdominal pain. Objective - Vital Signs/Intake and Output Vital Signs (last 24 hours): Temp Pulse Resp BP Pulse Ox 98.2 F 60 20 134/64 100 11/16/16 00:00 11/16/16 06:00 11/16/16 00:00 11/16/16 00:00 11/16/16 00:00 Intake and Output: 11/16/16 11/16/16 06:59 18:59 Intake Total 880 Balance 880 - Medications Medications: Current Medications Acetaminophen (Tylenol 325mg Tab) 650 mg PO Q6H PRN PRN Reason: Fever >100.4 F Last Admin: 11/14/16 21:31 Dose: 650 mg Aspirin (Aspirin Chewable) 81 mg PO DAILY [facility] Last Admin: 11/15/16 09:34 Dose: 81 mg Carvedilol (Coreg) 6.25 mg PO BID [facility] Last Admin: 11/15/16 17:52 Dose: 6.25 mg Cyanocobalamin (Vitamin B12 1000 Mcg Tab) 1,000 mcg PO DAILY [facility] Last Admin: 11/15/16 09:34 Dose: 1,000 mcg Docusate Sodium (Colace) 100 mg PO TID [facility] Last Admin: 11/15/16 14:12 Dose: Not Given Enoxaparin Sodium (Lovenox) 30 mg SC DAILY [facility] PRN Reason: Protocol Last Admin: 11/15/16 09:36 Dose: 30 mg Hydrocortisone Sodium Succinate (Solu-Cortef) 100 mg IVP Q8 [facility] Last Admin: 11/16/16 05:31 Dose: 100 mg Meropenem 1g/NS 100mL IVPB (Meropenem 1g/Ns 100ml Ivpb) 1 gm in 100 mls @ 100 mls/hr IVPB Q8 [facility] PRN Reason: Protocol Stop: 11/19/16 08:31 Last Admin: 11/16/16 05:31 Dose: 100 mls/hr NOREPINEPHRINE BIT/0.9 % NACL (Levophed 4 Mg/ 250 Ml Ns Premixed) 4 mg in 250 mls @ 9.375 mls/hr IV .Q24H PRN; Protocol; 2.5 MCG/MIN PRN Reason: TITRATE PER MD ORDER Last Titration: 11/13/16 11:10 Dose: 0 mcg/min, 0 mls/hr Levothyroxine Sodium (Synthroid) 200 mcg PO DAILY [facility] Last Admin: 11/14/16 09:33 Dose: 200 mcg Lidocaine (Lidoderm) 1 ea TD DAILY [facility] Last Admin: 11/15/16 09:33 Dose: 1 ea Lisinopril (Zestril) 5 mg PO DAILY [facility] Last Admin: 11/15/16 09:34 Dose: 5 mg Magnesium Oxide (Mag-Ox) 400 mg PO BID [facility] Stop: 11/16/16 23:59 Last Admin: 11/15/16 17:52 Dose: 400 mg Non-Formulary Medication (Cholecalciferol (Vitamin D3) [D3-50]) 50,000 unit PO QWK [facility] Last Admin: 11/12/16 10:36 Dose: Not Given Non-Formulary Medication (Lenalidomide [Revlimid]) 10 mg PO DAILY [facility] Last Admin: 11/13/16 13:36 Dose: Not Given Potassium Chloride (K-Dur 20 Meq Er Tab) 20 meq PO DAILY [facility] Last Admin: 11/15/16 09:34 Dose: 20 meq Potassium Phos/Sodium Phos (Neutra-Phos) 1 pkt PO TID [facility] Stop: 11/16/16 23:00 Last Admin: 11/15/16 17:52 Dose: 1 pkt Simethicone (Mylicon Liq) 40 mg PO QID PRN PRN Reason: for stomach pain Last Admin: 11/14/16 17:38 Dose: 40 mg Trazodone HCl (Desyrel) 25 mg PO HS [facility] Last Admin: 11/15/16 21:13 Dose: 25 mg - Labs Labs: 11/16/16 04:30 11/16/16 04:30 - Constitutional Appears: Non-toxic, No Acute Distress - Head Exam Head Exam: NORMAL INSPECTION - ENT Exam ENT Exam: Mucous Membranes Moist - Neck Exam Neck Exam: absent: Lymphadenopathy, Meningismus - Respiratory Exam Respiratory Exam: Decreased Breath Sounds - Cardiovascular Exam Cardiovascular Exam: +S1, +S2 - GI/Abdominal Exam GI & Abdominal Exam: Soft. absent: Tenderness Assessment and Plan - Assessment and Plan (Free Text) Plan: Assessment Sepsis due to and acute sigmoid diverticulitis and UTI (probable pyelonephritis ) with associated E. coli bacteremia HTN history of CVA DM multiple myeloma hypothyroidism S/P left pacemaker placement Plan changed antibiotics to Ceftriaxone and Flagyl (day 4); HIDA scan is negative for cholecystitis - when eating regular diet and ready for discharge, patient can be switched to PO Moxifloxacin to complete 10-14 days of therapy will continue to monitor clinically
--- NOTE | 2016-11-16 20:50 | PN ---
DATE: 11/16/2016 REASON FOR CONSULTATION: Followup hypotension, tachycardia, gram-negative bacteremia, sepsis, and bandemia. SUBJECTIVE: The patient is in now 3R. Denies any chest pain, shortness of breath, or any palpitation. OBJECTIVE: GENERAL: Lying flat on the bed, not in any apparent distress, calling family members on cell phone. VITAL SIGNS: Temperature afebrile, heart rate 65, and blood pressure 164/66. HEENT: PERRLA. Extraocular muscles intact. NECK: Supple. No carotid bruit. No thyromegaly. CHEST: Clear to auscultation. HEART: S1 and S2 regular. ABDOMEN: Soft. EXTREMITIES: Clubbing and cyanosis negative. LABORATORY DATA: Blood workup as follows: WBC 3.4, hemoglobin 8.6, hematocrit 25.1, and platelet count 120. Chemistry showed sodium 145, potassium 3, chloride 110, carbon dioxide 26, anion gap of 12, BUN 14, creatinine 0.6, total protein 5.8, albumin 2.7, and albumin-globulin ratio 0.9. IMPRESSION: Protein-calorie malnutrition, moderate, which was not present on admission, hypokalemia, thrombocytopenia, anemia, leukopenia, neutropenia, bandemia on admission, and history of bone marrow transplantation. Positive troponin on admission, borderline probably secondary to hemodynamic instability. I doubted coronary event. The patient at one point very hypotensive, requiring dopamine and Levophed, changed to Levophed, now the patient is currently stable, asymptomatic. Repeat echo was done yesterday that showed ejection fraction of 60% to 65%, moderate aortic regurgitation, and [id number] mitral regurgitation, moderate tricuspid regurgitation, mild pulmonary hypertension, and right ventricular systolic pressure 53 mmHg. RECOMMENDATIONS: Supplement electrolyte as needed, blood transfusion as per hematology/oncology, keep hemoglobin 10 if possible. Continue beta-carolina, Coreg 6.25, and we will increase to 12.5. Now the patient's blood pressure is going up. At one point, the patient was on pressors, all the blood pressure medication was on hold. Supplement potassium, increase nutritional support, we will give Ensure pudding to increase nutritional support. We will increase Coreg to 12.5 b.i.d. from 10 mg daily. We will put Ensure pudding 3 times a day with meal. We will follow with you. Thank you Dr. Bernardo for providing me the opportunity in taking care of patient. Yuridia Wayne MD
--- NOTE | 2016-11-16 23:08 | PN ---
SUBJECTIVE: The patient seen and examined on the bedside. Looking comfortable. No nausea, vomiting, or diarrhea. No hematochezia. No swelling of the leg. No chest pain. No palpitation. No headache or dizziness. PHYSICAL EXAMINATION: VITAL SIGNS: Temperature 98.6, pulse 61, blood pressure 157/55, and respiratory rate 19. HEENT: Head: Normocephalic and atraumatic. Eyes: PERRLA. Extraocular muscles intact. Conjunctivae clear. Nose patent. Mucous membrane moist. NECK: Supple. No carotid bruits, JVD, or thyromegaly. CHEST: Bilaterally symmetrical. HEART: S1 and S2 positive. LUNGS: Clear to auscultation. ABDOMEN: Soft. Bowel sounds are present. No organomegaly. EXTREMITIES: No edema. No cyanosis. NEUROLOGIC: The patient is awake and alert. Moving all four extremities. No focal deficits. MEDICATIONS: Aspirin, Colace, Coreg, trazodone, Flagyl, K-Dur, Levophed, cocaine, Lovenox, magnesium oxide, Mycelex, Neutra-Phos, nystatin powder, Rocephin, Solu-Cortef, Synthroid, Tylenol, B1. LABORATORY DATA: White blood cells are 3.4, hemoglobin 8.1, hematocrit 25.1, and platelets 120. Sodium 145, potassium 3.0, BUN 14, creatinine 0.6, glucose 114. ASSESSMENT AND PLAN: The patient is a 81-year-old lady with leukopenia; anemia, improved after transfusion of 1 units of packed RBC; hypokalemia; hyperglycemia; hypocalcemia; hypophosphatemia; proteinuria; hematuria; urinary tract infection, getting antibiotics as per infectious disease Dr. Yaneth Cadena. Diabetes mellitus, multiple myeloma, hypothyroidism, left pacemaker placement, acute sigmoid diverticulitis, and urinary tract infection, probably pyelonephritis associated with Escherichia coli bacteremia, history of cerebrovascular accident, hypertension. ID changed antibiotics to Ceftin to Flagyl day 4. HIDA scan was negative for cholecystitis. GI and DVT prophylaxis. Repeat labs. We will follow up. Sussy Bernardo MD
[2016-11-17] MEDS: metroNIDAZOLE IV 500 mg/100 ml 500 MG/100 ML BAG IVPB SCH ×3 (05:41→21:45)
[2016-11-17 07:22] LABS: ALKALINE PHOSPHATASE 77 U/L (38-133); ALT/SGPT 37 U/L (7-56); AST/SGOT 22 U/L (15-39); BILIRUBIN,TOTAL 0.9 mg/dL (0.2-1.3); BLOOD UREA NITROGEN 11 mg/dL (7-21); CARBON DIOXIDE 32 mmol/L (21-33); CHLORIDE 100 mmol/L (98-107); GFR AFRICAN-AMERICAN > 60; GLUCOSE,RANDOM 102 mg/dL (70-110); SODIUM 142 mmol/L (132-148)
[2016-11-17 07:38] LABS: POTASSIUM 2.1 mmol/L (3.6-5.0)
[2016-11-17 07:54] LABS: GRAN % 56.7 % (50.0-68.0); HEMATOCRIT 28.4 % (36.0-48.0); LYMPH # 0.7 (1.2-3.4); LYMPH % 28.7 % (22.0-35.0); MEAN CELL VOLUME 90.7 fl (80.0-105.0); MEAN CORPUSCULAR HEMOGLOBIN 30.7 pg (25.0-35.0); MEAN CORPUSCULAR HGB CONC 33.8 g/dl (31.0-37.0); MEAN PLATELET VOLUME 9.2 fl (7.0-11.0); MONO # 0.4 (0.1-0.6); MONO % 14.6 % (1.0-6.0); PLATELET COUNT 124 10^3/uL (120.0-450.0); RED CELL DISTRIBUTION WIDTH 18.7 % (11.5-14.5)
[2016-11-17 08:18] LABS: WHITE BLOOD COUNT 2.5 10^3/ul (4.5-11.0)
[2016-11-17 10:12] LABS: ANISOCYTOSIS SLIGHT; HYPOCHROMIA 1+; NEUTROPHIL 60 % (50.0-70.0); PLATELET ESTIMATE LOW (NORMAL); POLYCHROMASIA SLIGHT
[2016-11-17] MEDS: Potassium Chloride 20 mEq ER Tab PO SCH (10:20)
[2016-11-17] MEDS: Enoxaparin 30 mg Syringe SC SCH (10:20)
[2016-11-17] MEDS: Lidocaine 5% Patch TD SCH (10:20)
[2016-11-17] MEDS: cefTRIAXone 1 gm 1 GM/100 ML BAG IVPB SCH (10:21)
[2016-11-17] MEDS: Nystatin 100,000 Units/gm Topical Pow(15 gm) TOP SCH (10:22)
[2016-11-17] MEDS ORDERED: Potassium Chloride 20 mEq ER Tab PO ONE ×2 (11:16→15:00)
--- NOTE | 2016-11-17 15:44 | PN ---
DATE: 11/17/2016 REASON FOR CONSULTATION: Followup hypotension, tachycardia, gram-negative sepsis, bacteremia, bandemia improved. SUBJECTIVE: The patient is now in 3R. Denies any chest pain, shortness of breath, or any palpitation. OBJECTIVE: GENERAL: Lying flat on the bed, not in any apparent distress, calling the family members on cell phone. VITAL SIGNS: Temperature afebrile, heart rate , blood pressure 145/68. HEENT: PERRLA. Extraocular muscles intact. NECK: Supple. No carotid bruit. No thyromegaly. CHEST: Clear to auscultation. HEART: S1 and S2 regular. ABDOMEN: Soft. EXTREMITIES: Clubbing and cyanosis negative. LABORATORY DATA: Blood workup as follows: WBC 2.5, hemoglobin 9.0, hematocrit 28.4, platelet count 124. Chemistry showed sodium 140, potassium 2.1, chloride 100, carbon dioxide 32, anion gap of 12, BUN 11, creatinine 0.5. IMPRESSION: Severe hypokalemia, anemia, neutropenia, thrombocytopenia, pancytopenia, status post bone marrow transplantation, admitted with sepsis, gram negative, hypotension is improved. Positive troponin secondary to hemodynamic instability, no evidence of coronary artery disease. The patient is asymptomatic. The patient is now on the floor, off Levophed vasopressor. Last echo yesterday shows ejection fraction 65%, moderate aortic regurgitation, [id number] mitral regurgitation, moderate tricuspid regurgitation, mild pulmonary hypertension, and right ventricular systolic pressure 53 mmHg. RECOMMENDATIONS: Supplement aggressively electrolyte, monitor H and H as per hematology/oncology, continue aspirin, continue Coreg, increased yesterday carvedilol to 12.5 because now the patient can tolerate. We will aggressively supplement potassium. IV potassium was ordered by Dr. Bernardo at 20 mEq x2. We will give 40 x2 as well. We will check magnesium level and phosphate as well as CMP in the morning. Thank you Dr. Bernardo for providing me the opportunity in taking care of the patient, Vanessa Foote. Yuridia Wayne MDDD: 11/17/2016 11:18:51
--- NOTE | 2016-11-17 20:58 | CP.PCM.PN ---
Subjective - Date & Time of Evaluation Date of Evaluation: 11/16/16 Time of Evaluation: 13:00 - Subjective Subjective: Feeling better Objective - Vital Signs/Intake and Output Vital Signs (last 24 hours): Temp Pulse Resp BP Pulse Ox 98 F 60 20 131/59 L 97 11/17/16 14:00 11/17/16 14:00 11/17/16 14:00 11/17/16 17:52 11/17/16 14:00 - Medications Medications: Current Medications Acetaminophen (Tylenol 325mg Tab) 650 mg PO Q6H PRN PRN Reason: Fever >100.4 F Last Admin: 11/16/16 20:59 Dose: 650 mg Aspirin (Aspirin Chewable) 81 mg PO DAILY [facility] Last Admin: 11/17/16 10:20 Dose: 81 mg Carvedilol (Coreg) 12.5 mg PO BID [facility] Last Admin: 11/17/16 17:52 Dose: 12.5 mg Cyanocobalamin (Vitamin B12 1000 Mcg Tab) 1,000 mcg PO DAILY [facility] Last Admin: 11/17/16 10:20 Dose: 1,000 mcg Docusate Sodium (Colace) 100 mg PO TID [facility] Last Admin: 11/17/16 17:40 Dose: Not Given Enoxaparin Sodium (Lovenox) 30 mg SC DAILY [facility] PRN Reason: Protocol Last Admin: 11/17/16 10:20 Dose: 30 mg Hydrocortisone Sodium Succinate (Solu-Cortef) 100 mg IVP Q8 [facility] Last Admin: 11/17/16 14:04 Dose: 100 mg NOREPINEPHRINE BIT/0.9 % NACL (Levophed 4 Mg/ 250 Ml Ns Premixed) 4 mg in 250 mls @ 9.375 mls/hr IV .Q24H PRN; Protocol; 2.5 MCG/MIN PRN Reason: TITRATE PER MD ORDER Last Titration: 11/13/16 11:10 Dose: 0 mcg/min, 0 mls/hr Ceftriaxone Sodium (Rocephin 1 Gram Ivpb) 1 gm in 100 mls @ 100 mls/hr IVPB DAILY [facility] PRN Reason: Protocol Last Admin: 11/17/16 10:21 Dose: 100 mls/hr Metronidazole (Flagyl) 500 mg in 100 mls @ 100 mls/hr IVPB Q8 [facility] PRN Reason: Protocol Last Admin: 11/17/16 14:05 Dose: 100 mls/hr Lidocaine (Lidoderm) 1 ea TD DAILY [facility] Last Admin: 11/17/16 10:20 Dose: 1 ea Lisinopril (Zestril) 5 mg PO DAILY [facility] Last Admin: 11/17/16 10:20 Dose: 5 mg Non-Formulary Medication (Cholecalciferol (Vitamin D3) [D3-50]) 50,000 unit PO QWK [facility] Last Admin: 11/12/16 10:36 Dose: Not Given Non-Formulary Medication (Lenalidomide [Revlimid]) 10 mg PO DAILY [facility] Last Admin: 11/13/16 13:36 Dose: Not Given Nystatin (Nystop Topical Powder) 0 gm TOP DAILY [facility] Last Admin: 11/17/16 10:22 Dose: 1 applic Potassium Chloride (K-Dur 20 Meq Er Tab) 20 meq PO DAILY [facility] Last Admin: 11/17/16 10:20 Dose: 20 meq Simethicone (Mylicon Liq) 40 mg PO QID PRN PRN Reason: for stomach pain Last Admin: 11/14/16 17:38 Dose: 40 mg Trazodone HCl (Desyrel) 25 mg PO HS [facility] Last Admin: 11/16/16 21:47 Dose: 25 mg - Labs Labs: 11/17/16 06:30 11/17/16 06:30 - Head Exam Head Exam: ATRAUMATIC - Eye Exam Eye Exam: Normal appearance - ENT Exam ENT Exam: Mucous Membranes Dry - Respiratory Exam Respiratory Exam: NORMAL BREATHING PATTERN - Cardiovascular Exam Cardiovascular Exam: +S1, +S2 - GI/Abdominal Exam GI & Abdominal Exam: Normal Bowel Sounds Assessment and Plan (1) Anemia Assessment & Plan: chronic disease Revlimid on hold s/p PRBC transfusion Status: Acute (2) Thrombocytopenia Assessment & Plan: improved Status: Acute (3) Multiple myeloma Assessment & Plan: Revlimid on hold can resume once completed antibiotic course Status: Acute
--- NOTE | 2016-11-17 21:00 | CP.PCM.PN ---
Subjective - Date & Time of Evaluation Date of Evaluation: 11/17/16 Time of Evaluation: 14:00 - Subjective Subjective: No complaints. Objective - Vital Signs/Intake and Output Vital Signs (last 24 hours): Temp Pulse Resp BP Pulse Ox 98 F 60 20 131/59 L 97 11/17/16 14:00 11/17/16 14:00 11/17/16 14:00 11/17/16 17:52 11/17/16 14:00 - Medications Medications: Current Medications Acetaminophen (Tylenol 325mg Tab) 650 mg PO Q6H PRN PRN Reason: Fever >100.4 F Last Admin: 11/16/16 20:59 Dose: 650 mg Aspirin (Aspirin Chewable) 81 mg PO DAILY [facility] Last Admin: 11/17/16 10:20 Dose: 81 mg Carvedilol (Coreg) 12.5 mg PO BID [facility] Last Admin: 11/17/16 17:52 Dose: 12.5 mg Cyanocobalamin (Vitamin B12 1000 Mcg Tab) 1,000 mcg PO DAILY [facility] Last Admin: 11/17/16 10:20 Dose: 1,000 mcg Docusate Sodium (Colace) 100 mg PO TID [facility] Last Admin: 11/17/16 17:40 Dose: Not Given Enoxaparin Sodium (Lovenox) 30 mg SC DAILY [facility] PRN Reason: Protocol Last Admin: 11/17/16 10:20 Dose: 30 mg Hydrocortisone Sodium Succinate (Solu-Cortef) 100 mg IVP Q8 [facility] Last Admin: 11/17/16 14:04 Dose: 100 mg NOREPINEPHRINE BIT/0.9 % NACL (Levophed 4 Mg/ 250 Ml Ns Premixed) 4 mg in 250 mls @ 9.375 mls/hr IV .Q24H PRN; Protocol; 2.5 MCG/MIN PRN Reason: TITRATE PER MD ORDER Last Titration: 11/13/16 11:10 Dose: 0 mcg/min, 0 mls/hr Ceftriaxone Sodium (Rocephin 1 Gram Ivpb) 1 gm in 100 mls @ 100 mls/hr IVPB DAILY [facility] PRN Reason: Protocol Last Admin: 11/17/16 10:21 Dose: 100 mls/hr Metronidazole (Flagyl) 500 mg in 100 mls @ 100 mls/hr IVPB Q8 [facility] PRN Reason: Protocol Last Admin: 11/17/16 14:05 Dose: 100 mls/hr Lidocaine (Lidoderm) 1 ea TD DAILY [facility] Last Admin: 11/17/16 10:20 Dose: 1 ea Lisinopril (Zestril) 5 mg PO DAILY [facility] Last Admin: 11/17/16 10:20 Dose: 5 mg Non-Formulary Medication (Cholecalciferol (Vitamin D3) [D3-50]) 50,000 unit PO QWK [facility] Last Admin: 11/12/16 10:36 Dose: Not Given Non-Formulary Medication (Lenalidomide [Revlimid]) 10 mg PO DAILY [facility] Last Admin: 11/13/16 13:36 Dose: Not Given Nystatin (Nystop Topical Powder) 0 gm TOP DAILY [facility] Last Admin: 11/17/16 10:22 Dose: 1 applic Potassium Chloride (K-Dur 20 Meq Er Tab) 20 meq PO DAILY [facility] Last Admin: 11/17/16 10:20 Dose: 20 meq Simethicone (Mylicon Liq) 40 mg PO QID PRN PRN Reason: for stomach pain Last Admin: 11/14/16 17:38 Dose: 40 mg Trazodone HCl (Desyrel) 25 mg PO HS [facility] Last Admin: 11/16/16 21:47 Dose: 25 mg - Labs Labs: 11/17/16 06:30 11/17/16 06:30 - Head Exam Head Exam: ATRAUMATIC - Eye Exam Eye Exam: Normal appearance - ENT Exam ENT Exam: Mucous Membranes Dry - Respiratory Exam Respiratory Exam: NORMAL BREATHING PATTERN - Cardiovascular Exam Cardiovascular Exam: +S1, +S2 - GI/Abdominal Exam GI & Abdominal Exam: Normal Bowel Sounds Assessment and Plan (1) Anemia Assessment & Plan: chronic disease Revlimid on hold s/p PRBC transfusion Status: Acute (2) Leukopenia Assessment & Plan: mild, cont. to monitor Status: Acute (3) Thrombocytopenia Assessment & Plan: mild improving Status: Acute (4) Multiple myeloma Assessment & Plan: Revlimid maintenance to resumre once completes course of antibiotics Status: Acute
--- NOTE | 2016-11-17 21:17 | CP.PCM.CON ---
History of Present Illness - History of Present Illness History of Present Illness: 81-year-old patient admitted initially with sepsis. She presented with nausea vomiting and fever. The CT showed a thickening of the gallbladder wall and also sigmoid colon thickening suggestive of possible diverticulitis, possible cholecystitis. Blood culture grew Escherichia coli and urine culture was also positive for E colitis suggestive of urinary tract infection Patient is being treated with IV antibiotics clinically much improved. Patient has now multiple episodes of loose bowel movements stool for occult blood was positive and patient is also anemic GI consult was requested to evaluate this. The patient was initially admitted her hemoglobin was 8.7 normocytic anemia.No bright red blood per rectum or melena. No complaints of abdominal pain presently. Patient did drop to count 7.7 and patient received transfusion and today hemoglobin 9.6. Patient has history of multiple myeloma patient is being followed monthly basis at [facility] for multiple myeloma she had history of autologous peripheral blood stem cell transplant in 2009 and she has been on Revlimid. which has been on hold in view of the sepsis presently. Patient had an upper GI endoscopy and also colonoscopy done in [facility] about 3 years ago. She was told the results were okay. Patient is a good historian. She lives alone with the home assistance 3 of us twice a day. Her daughter visits her in the evening. Other past medical history significant for status post CVA diabetes mellitus hypothyroidism status post permanent pacemaker multiple myeloma treatment as mentioned above. Patient has been closely followed at [facility]. Social history denies smoking ALLERGIEs no known drug allergy Family history noncontributory 81 year old female with a history of CVA, DM, hypothryoidism, pacemaker, multiple myeloma s/p autologous peripheral blood stem cell transplant in 2009 on maintenance Revlimid, admitted with possible cholecystitis and diverticulitis. She notes to increasing nausea and vomiting which was associated with fever and chills. She denies chest pain and shortness of breath. Past medical history: CVA, DM, hypothryoidism, pacemaker, multiple myeloma s/p autologous peripheral blood stem cell transplant in 2009 on maintenance Revlimid. Past surgical history: Pacemaker Family history: Several members with unknown cancer Social history: Denies tobacco, alcohol, and illicit drug use. Allergies: NKA Review of systems: All remaining review of systems reviewed negative except above Review of Systems - Review of Systems All systems: reviewed and no additional remarkable complaints except Past Patient History - Infectious Disease Hx of Infectious Diseases: None - Past Social History Smoking Status: Never Smoked - CARDIAC Hx Hypertension: No - PULMONARY Hx Respiratory Disorders: No - NEUROLOGICAL HX Cerebrovascular Accident: Yes - HEENT Hx HEENT Problems: Yes (cerumen impaction, eyeglasses) Hx Cataracts: Yes (b/l sx with implants) - RENAL Hx Chronic Kidney Disease: No - ENDOCRINE/METABOLIC Hx Diabetes Mellitus Type 1: No Hx Diabetes Mellitus Type 2: No - HEMATOLOGICAL/ONCOLOGICAL Hx Blood Transfusions: Yes Hx Blood Transfusion Reaction: No Hx Cancer: Yes Hx Shingles: Yes Other/Comment: Multiple Myeloma - INTEGUMENTARY Hx Dermatological Problems: No Other/Comment: Shingles in the right groin area and right upper buttocks - MUSCULOSKELETAL/RHEUMATOLOGICAL Hx Arthritis: Yes - GASTROINTESTINAL Hx Gastrointestinal Disorders: Yes (consitpation) - GENITOURINARY/GYNECOLOGICAL Hx Genitourinary Disorders: No Hx Incontinence: Yes - PSYCHIATRIC Hx Psychophysiologic Disorder: No Hx Substance Use: No - SURGICAL HISTORY Other/Comment: L chest pacemaker - ANESTHESIA Hx Anesthesia: Yes Hx Anesthesia Reactions: No Hx Malignant Hyperthermia: No Meds Allergies/Adverse Reactions: Allergies Allergy/AdvReac Type Severity Reaction Status Date / Time No Known Allergies Allergy Verified 11/12/16 04:40 - Medications Medications: Current Medications Acetaminophen (Tylenol 325mg Tab) 650 mg PO Q6H PRN PRN Reason: Fever >100.4 F Last Admin: 11/16/16 20:59 Dose: 650 mg Aspirin (Aspirin Chewable) 81 mg PO DAILY [facility] Last Admin: 11/17/16 10:20 Dose: 81 mg Carvedilol (Coreg) 12.5 mg PO BID [facility] Last Admin: 11/17/16 17:52 Dose: 12.5 mg Cyanocobalamin (Vitamin B12 1000 Mcg Tab) 1,000 mcg PO DAILY [facility] Last Admin: 11/17/16 10:20 Dose: 1,000 mcg Docusate Sodium (Colace) 100 mg PO TID [facility] Last Admin: 11/17/16 17:40 Dose: Not Given Enoxaparin Sodium (Lovenox) 30 mg SC DAILY [facility] PRN Reason: Protocol Last Admin: 11/17/16 10:20 Dose: 30 mg Hydrocortisone Sodium Succinate (Solu-Cortef) 100 mg IVP Q8 [facility] Last Admin: 11/17/16 14:04 Dose: 100 mg NOREPINEPHRINE BIT/0.9 % NACL (Levophed 4 Mg/ 250 Ml Ns Premixed) 4 mg in 250 mls @ 9.375 mls/hr IV .Q24H PRN; Protocol; 2.5 MCG/MIN PRN Reason: TITRATE PER MD ORDER Last Titration: 11/13/16 11:10 Dose: 0 mcg/min, 0 mls/hr Ceftriaxone Sodium (Rocephin 1 Gram Ivpb) 1 gm in 100 mls @ 100 mls/hr IVPB DAILY [facility] PRN Reason: Protocol Last Admin: 11/17/16 10:21 Dose: 100 mls/hr Metronidazole (Flagyl) 500 mg in 100 mls @ 100 mls/hr IVPB Q8 [facility] PRN Reason: Protocol Last Admin: 11/17/16 14:05 Dose: 100 mls/hr Lidocaine (Lidoderm) 1 ea TD DAILY [facility] Last Admin: 11/17/16 10:20 Dose: 1 ea Lisinopril (Zestril) 5 mg PO DAILY [facility] Last Admin: 11/17/16 10:20 Dose: 5 mg Non-Formulary Medication (Cholecalciferol (Vitamin D3) [D3-50]) 50,000 unit PO QWK [facility] Last Admin: 11/12/16 10:36 Dose: Not Given Non-Formulary Medication (Lenalidomide [Revlimid]) 10 mg PO DAILY [facility] Last Admin: 11/13/16 13:36 Dose: Not Given Nystatin (Nystop Topical Powder) 0 gm TOP DAILY [facility] Last Admin: 11/17/16 10:22 Dose: 1 applic Potassium Chloride (K-Dur 20 Meq Er Tab) 20 meq PO DAILY [facility] Last Admin: 11/17/16 10:20 Dose: 20 meq Simethicone (Mylicon Liq) 40 mg PO QID PRN PRN Reason: for stomach pain Last Admin: 11/14/16 17:38 Dose: 40 mg Trazodone HCl (Desyrel) 25 mg PO HS [facility] Last Admin: 11/16/16 21:47 Dose: 25 mg Physical Exam - Constitutional Appears: No Acute Distress - Head Exam Head Exam: ATRAUMATIC, NORMOCEPHALIC - Eye Exam Eye Exam: EOMI, PERRL - ENT Exam ENT Exam: Mucous Membranes Moist - Neck Exam Neck exam: Positive for: Full Rom. Negative for: Lymphadenopathy - Respiratory Exam Respiratory Exam: Clear to Auscultation Bilateral. absent: Rales, Rhonchi - Cardiovascular Exam Cardiovascular Exam: +S1, +S2. absent: JVD - GI/Abdominal Exam GI & Abdominal Exam: Normal Bowel Sounds, Soft. absent: Tenderness - Extremities Exam Extremities exam: Positive for: full ROM. Negative for: calf tenderness - Neurological Exam Neurological exam: Alert, Oriented x3 Results - Vital Signs Recent Vital Signs: Last Vital Signs Temp 98 F 11/17/16 14:00 Pulse 60 11/17/16 14:00 Resp 20 11/17/16 14:00 BP 131/59 L 11/17/16 17:52 Pulse Ox 97 11/17/16 14:00 - Labs Result Diagrams: 11/18/16 06:30 11/18/16 06:30 Labs: Laboratory Results - last 24 hr 11/14/16 11/17/16 11/17/16 18:48 06:30 06:30 WBC 2.5 L* D RBC 3.13 L Hgb 9.6 L Hct 28.4 L MCV 90.7 D MCH 30.7 MCHC 33.8 RDW 18.7 H Plt Count 124 MPV 9.2 Gran % 56.7 Lymph % (Auto) 28.7 Mcminn % (Auto) 14.6 H Eos % (Auto) 0.0 L Baso % (Auto) 0.0 Gran # 1.40 Lymph # 0.7 L Mcminn # 0.4 Eos # 0.0 Baso # 0.00 Neutrophils % (Manual) 60 Lymphocytes % (Manual) 35 Monocytes % (Manual) 5 Platelet Evaluation Low Polychromasia Slight Hypochromasia 1+ Anisocytosis (manual) Slight Sodium 142 Potassium 2.1 L* D Chloride 100 Carbon Dioxide 32 Anion Gap 12 BUN 11 Creatinine 0.5 Est GFR ( Amer) > 60 Est GFR (Non-Af Amer) > 60 Random Glucose 102 Calcium 7.0 L Total Bilirubin 0.9 AST 22 ALT 37 Alkaline Phosphatase 77 Total Protein 6.0 Albumin 3.0 Globulin 3.0 Albumin/Globulin Ratio 1.0 L Crossmatch See Detail Assessment & Plan - Assessment and Plan (Free Text) Assessment: This 81-year-old patient with the multiple myeloma, normocytic anemia presented with a sepsis,, urine culture positive for culture positive CT and sonogram registry of gallbladder wall tinkering possibly cholecystitis, over a HIDA scan was negative some thickening of the sigmoid colon possible diverticulitis. Clinically patient is improved with antibiotics no tenderness. Patient is presently having ddiarrhea, stool for occult blood positive slight drop in blood count transfused 1 unit The differential diagnosis for occult GI bleeding should include C. difficile colitis, AVM, hemorrhoids, colonic neoplasia and also upper GI etiology including PUD should be considered Would recommend 1. Stool for C. difficile 2. Follow up on the hemoglobin and hematocrit 3. Iron studies 4. Transfuse as needed based on clinical course as per the hematology 5. Discussed with the patient at length. Patient is not keen on having an endoscopy or colonoscopy at the present time. We will get the records of her previous workup done in [facility]. We will discuss with her city planning teacher in [place] prior to any procedure as per the patient's request. Would consider endoscopy evaluation and possibly colonoscopy if patient has active ongoing bleeding with a significant drop in blood count 6.Continue antibiotics as per ID. Patient did have significant pericholecystic fluid and a CAT scan and/or significant thickening of the sigmoid. Would consider repeating the CT off of abdomen and pelvis with only by mouth contrast in view of the multiple myeloma and based on the clinical course Thank you very much for allowing us to participate in the care of the patient - Date & Time Date: 11/18/16 Time: 10:15
--- NOTE | 2016-11-18 02:43 | PN ---
DATE: The patient is a 81-year-old female. SUBJECTIVE: The patient was seen and examined at the bedside, looking comfortable. Had diarrhea. No nausea or vomiting. No hematuria or hematochezia. No swelling of the legs. No chest pain. No palpitations. PHYSICAL EXAMINATION: VITAL SIGNS: Temperature 98.2, pulse 60, blood pressure 145/60, respiratory rate 20. HEENT: Head normocephalic and atraumatic. Eyes, PERRLA. Extraocular muscles intact. Conjunctivae clear. Nose patent. Mucous membrane moist. NECK: Supple. No carotid bruits, JVD, thyromegaly. CHEST: Bilaterally symmetrical. HEART: S1 and S2 positive. LUNGS: Clear to auscultation. ABDOMEN: Soft. Bowel sounds positive. No organomegaly. EXTREMITIES: No edema and no cyanosis. NEUROLOGICAL: The patient is awake and alert. Moving all 4 extremities. No focal deficit. LABORATORY DATA: White blood cell 2.5, hemoglobin 9.6, hematocrit 28.4, platelets 124. Sodium 142, potassium 2.1, BUN 11, creatinine 0.5, calcium is 7. MEDICATIONS: Aspirin, vitamin D, Colace, Coreg, trazodone, Flagyl, potassium, Lidoderm, and Lovenox. ASSESSMENT AND PLAN: Mrs. Vanessa Foote is a 81-year-old lady with hypokalemia, replaced, and got two k. rider 20 mEq; hypocalcemia getting p.o. calcium, hyperthyroidism, leukopenia, anemia, history of multiple myeloma, has diarrhea, and the stool occult positive. GI consult called. Diabetes mellitus. Actually, the patient had hypothyroidism, now looks like she has hyperthyroidism. Left pacemaker placement. HIDA scan is negative for cholecystitis. The patient is getting Flagyl and Ancef day 1 secondary due to sigmoid diverticulitis, and urinary tract infection, probably pyelonephritis associated with Escherichia coli bacteremia, history of cerebrovascular accident, seen by Dr. Surinder Wolfe, Infectious Disease and Dr. Wayne. [employer] because troponin is positive. The patient's oncologist is Dr. Gordon Soni . GI and DVT prophylaxis. Repeat labs. Follow up. Sussy Bernardo MD MTDD
[2016-11-18] MEDS: metroNIDAZOLE IV 500 mg/100 ml 500 MG/100 ML BAG IVPB SCH ×3 (05:43→22:10)
[2016-11-18 07:13] LABS: GRAN # 1.53 (1.4-6.5); GRAN % 51.2 % (50.0-68.0); HEMATOCRIT 29.3 % (36.0-48.0); LYMPH # 0.9 (1.2-3.4); LYMPH % 30.4 % (22.0-35.0); MEAN CORPUSCULAR HEMOGLOBIN 30.1 pg (25.0-35.0); MEAN CORPUSCULAR HGB CONC 33.1 g/dl (31.0-37.0); MEAN PLATELET VOLUME 9.6 fl (7.0-11.0); MONO # 0.6 (0.1-0.6); MONO % 18.4 % (1.0-6.0)
[2016-11-18 07:14] LABS: ALKALINE PHOSPHATASE 77 U/L (38-133); ALT/SGPT 33 U/L (7-56); AST/SGOT 20 U/L (15-39); BILIRUBIN,TOTAL 0.8 mg/dL (0.2-1.3); BLOOD UREA NITROGEN 12 mg/dL (7-21); CARBON DIOXIDE 33 mmol/L (21-33); CHLORIDE 99 mmol/L (98-107); GFR AFRICAN-AMERICAN > 60; GLUCOSE,RANDOM 107 mg/dL (70-110); MAGNESIUM 1.4 mg/dL (1.7-2.2); PHOSPHOROUS 1.8 mg/dL (2.5-4.5); SODIUM 139 mmol/L (132-148); TOTAL PROTEIN 5.9 g/dL (5.8-8.3)
[2016-11-18 07:27] LABS: CALCIUM 6.9 mg/dL (8.4-10.5); POTASSIUM 2.3 mmol/L (3.6-5.0)
[2016-11-18] MEDS: cefTRIAXone 1 gm 1 GM/100 ML BAG IVPB SCH (10:33)
[2016-11-18] MEDS: Magnesium Oxide 400 mg Tab UD PO SCH ×2 (10:34→17:37)
[2016-11-18] MEDS: Enoxaparin 30 mg Syringe SC SCH (10:34)
[2016-11-18] MEDS: Lidocaine 5% Patch TD SCH (10:36)
[2016-11-18] MEDS: Potassium Chloride 20 mEq ER Tab PO SCH (10:36)
[2016-11-18] MEDS: Nystatin 100,000 Units/gm Topical Pow(15 gm) TOP SCH (10:37)
[2016-11-18] MEDS ORDERED: Magnesium Sulfate 2 GM in Sodium Chloride 0.9% 100 ML IVPB ONE ×2 (12:01→13:15)
[2016-11-18] MEDS: Potassium & Sodium Phosphate PO SCH ×2 (13:27→17:36)
--- NOTE | 2016-11-18 14:03 | CP.PCM.PN ---
Subjective - Date & Time of Evaluation Date of Evaluation: 11/18/16 Time of Evaluation: 13:59 - Subjective Subjective: Patient has very poor veins,needs iv access. Objective - Vital Signs/Intake and Output Vital Signs (last 24 hours): Temp Pulse Resp BP Pulse Ox 98.5 F 60 18 151/62 H 96 11/18/16 06:00 11/18/16 10:00 11/18/16 06:00 11/18/16 06:00 11/18/16 06:00 Intake and Output: 11/18/16 11/18/16 06:59 18:59 Intake Total 560 Output Total 450 Balance 110 - Medications Medications: Current Medications Acetaminophen (Tylenol 325mg Tab) 650 mg PO Q6H PRN PRN Reason: Fever >100.4 F Last Admin: 11/16/16 20:59 Dose: 650 mg Aspirin (Aspirin Chewable) 81 mg PO DAILY [facility] Last Admin: 11/18/16 10:36 Dose: 81 mg Calcium Carbonate (Caltrate) 600 mg PO DAILY [facility] Last Admin: 11/18/16 10:34 Dose: 600 mg Carvedilol (Coreg) 12.5 mg PO BID [facility] Last Admin: 11/18/16 10:36 Dose: 12.5 mg Cyanocobalamin (Vitamin B12 1000 Mcg Tab) 1,000 mcg PO DAILY [facility] Last Admin: 11/18/16 10:36 Dose: 1,000 mcg Docusate Sodium (Colace) 100 mg PO TID [facility] Last Admin: 11/18/16 13:27 Dose: Not Given Enoxaparin Sodium (Lovenox) 30 mg SC DAILY [facility] PRN Reason: Protocol Last Admin: 11/18/16 10:34 Dose: 30 mg Hydrocortisone Sodium Succinate (Solu-Cortef) 100 mg IVP Q8 [facility] Last Admin: 11/18/16 13:27 Dose: 100 mg NOREPINEPHRINE BIT/0.9 % NACL (Levophed 4 Mg/ 250 Ml Ns Premixed) 4 mg in 250 mls @ 9.375 mls/hr IV .Q24H PRN; Protocol; 2.5 MCG/MIN PRN Reason: TITRATE PER MD ORDER Last Titration: 11/13/16 11:10 Dose: 0 mcg/min, 0 mls/hr Ceftriaxone Sodium (Rocephin 1 Gram Ivpb) 1 gm in 100 mls @ 100 mls/hr IVPB DAILY [facility] PRN Reason: Protocol Last Admin: 11/18/16 10:33 Dose: 100 mls/hr Metronidazole (Flagyl) 500 mg in 100 mls @ 100 mls/hr IVPB Q8 [facility] PRN Reason: Protocol Last Admin: 11/18/16 05:43 Dose: 100 mls/hr Potassium Chloride (Potassium Chloride 20 Meq/100 Ml) 20 meq in 100 mls @ 50 mls/hr IVPB Q2H [facility] Stop: 11/18/16 14:59 Last Admin: 11/18/16 10:32 Dose: 50 mls/hr Magnesium Sulfate 2 gm/ Sodium (Chloride) 104 mls @ 102 mls/hr IVPB ONCE ONE Stop: 11/18/16 14:16 Calcium Gluconate 1,000 mg/ (Sodium Chloride) 110 mls @ 110 mls/hr IVPB ONCE ONE Stop: 11/18/16 15:14 Lidocaine (Lidoderm) 1 ea TD DAILY [facility] Last Admin: 11/18/16 10:36 Dose: 1 ea Lisinopril (Zestril) 5 mg PO DAILY [facility] Last Admin: 11/18/16 10:34 Dose: 5 mg Magnesium Oxide (Mag-Ox) 400 mg PO BID [facility] Last Admin: 11/18/16 10:34 Dose: 400 mg Non-Formulary Medication (Cholecalciferol (Vitamin D3) [D3-50]) 50,000 unit PO QWK [facility] Last Admin: 11/12/16 10:36 Dose: Not Given Non-Formulary Medication (Lenalidomide [Revlimid]) 10 mg PO DAILY [facility] Last Admin: 11/13/16 13:36 Dose: Not Given Nystatin (Nystop Topical Powder) 0 gm TOP DAILY [facility] Last Admin: 11/18/16 10:37 Dose: 1 applic Potassium Chloride (K-Dur 20 Meq Er Tab) 20 meq PO DAILY [facility] Last Admin: 11/18/16 10:36 Dose: 20 meq Potassium Chloride (K-Dur 20 Meq Er Tab) 40 meq PO ONCE ONE Stop: 11/18/16 17:01 Potassium Phos/Sodium Phos (Neutra-Phos) 1 pkt PO TID [facility] Stop: 11/19/16 23:00 Last Admin: 11/18/16 13:27 Dose: 1 pkt Simethicone (Mylicon Liq) 40 mg PO QID PRN PRN Reason: for stomach pain Last Admin: 11/14/16 17:38 Dose: 40 mg Trazodone HCl (Desyrel) 25 mg PO HS [facility] Last Admin: 11/17/16 21:42 Dose: 25 mg - Labs Labs: 11/18/16 06:30 11/18/16 06:30 - Constitutional Appears: No Acute Distress Assessment and Plan - Assessment and Plan (Free Text) Assessment: Poor venous access. Plan: Hep lock inserted in the R hand. # 24 angiocath used.
[2016-11-18] MEDS ORDERED: Potassium Chloride 20 mEq ER Tab PO ONE (17:00)
--- NOTE | 2016-11-18 18:03 | PN ---
DATE: 11/18/2016 REASON FOR CONSULTATION: Followup hypertension, sepsis, tachycardia, bacteremia, bandemia, improved. SUBJECTIVE: The patient denies any chest pain, shortness of breath, or any palpitation. Now is in the 3R. PHYSICAL EXAMINATION: GENERAL: Lying flat on the bed, talking to the family member on the phone. VITAL SIGNS: Temperature afebrile, heart rate 60, blood pressure 150/62. HEENT: PERRLA. Extraocular muscles intact. NECK: Supple. No carotid bruit. No thyromegaly. CHEST Clear to auscultation. HEART: S1 and S2 regular. ABDOMEN: Soft. EXTREMITIES: Clubbing and cyanosis negative. LABORATORY DATA: Blood workup as follows: WBC 3, hemoglobin 9.7, hematocrit 29.3, platelet count 149. Chemistry shows sodium 139, potassium 2.3, chloride 99, carbon dioxide 33, anion gap of 9, BUN 12, creatinine 0.5, calcium 6.9, phosphorus 1.8, magnesium 1.4. IMPRESSION: Multiple electrolyte abnormality including hypokalemia, hypomagnesemia, hypophosphatemia, hypocalcemia, status post bandemia, Gram-negative sepsis, hypotension, history of pacemaker, dual chamber mRIC pacemaker was placed. Last echo day before yesterday shows ejection fraction 60%, moderate aortic regurgitation, [id number] mitral regurgitation, moderate tricuspid regurgitation, mild pulmonary hypertension, and right ventricular systolic pressure 53. RECOMMENDATION: Aggressively supplement electrolyte. History of multiple myeloma, pancytopenia needs to be followed up with heme/onc. We will have pacemaker evaluation. The patient had pacemaker on 01/30/2015. We will put pacemaker evaluation for Saturday. Continue interim Coreg as tolerated and as mentioned aggressive supplement potassium. Since the patient's blood pressure is improved, we will increase Coreg to 12.5. Continue DVT prophylaxis. If needed we can increase Coreg to 25 mg b.i.d. if the blood pressure remains elevated and needs more blood pressure medication. We will follow with you. Continue lisinopril 5 mg daily. We will repeat the electrolyte in the morning and PPM evaluation in the morning. Thank you Dr. Bernardo for providing us the opportunity in taking care of the patient, Vanessa Foote. Yuridia Wayne MD
--- NOTE | 2016-11-18 22:11 | CP.PCM.PN ---
Subjective - Date & Time of Evaluation Date of Evaluation: 11/18/16 Time of Evaluation: 11:00 - Subjective Subjective: patient is feeling better. Still has some loose bowel movements discussed with the nursing staff the specimen sent to earlier was discarded. Hemoglobin remains stable status post transfusion Tolerating diet Objective - Vital Signs/Intake and Output Vital Signs (last 24 hours): Temp Pulse Resp BP Pulse Ox 98.5 F 62 18 117/59 L 96 11/18/16 06:00 11/18/16 18:00 11/18/16 06:00 11/18/16 17:37 11/18/16 06:00 - Medications Medications: Current Medications Acetaminophen (Tylenol 325mg Tab) 650 mg PO Q6H PRN PRN Reason: Fever >100.4 F Last Admin: 11/16/16 20:59 Dose: 650 mg Aspirin (Aspirin Chewable) 81 mg PO DAILY [facility] Last Admin: 11/18/16 10:36 Dose: 81 mg Calcium Carbonate (Caltrate) 600 mg PO DAILY [facility] Last Admin: 11/18/16 10:34 Dose: 600 mg Carvedilol (Coreg) 12.5 mg PO BID [facility] Last Admin: 11/18/16 17:37 Dose: 12.5 mg Cyanocobalamin (Vitamin B12 1000 Mcg Tab) 1,000 mcg PO DAILY [facility] Last Admin: 11/18/16 10:36 Dose: 1,000 mcg Docusate Sodium (Colace) 100 mg PO TID [facility] Last Admin: 11/18/16 18:04 Dose: Not Given Enoxaparin Sodium (Lovenox) 30 mg SC DAILY [facility] PRN Reason: Protocol Last Admin: 11/18/16 10:34 Dose: 30 mg Hydrocortisone Sodium Succinate (Solu-Cortef) 100 mg IVP Q8 [facility] Last Admin: 11/18/16 13:27 Dose: 100 mg NOREPINEPHRINE BIT/0.9 % NACL (Levophed 4 Mg/ 250 Ml Ns Premixed) 4 mg in 250 mls @ 9.375 mls/hr IV .Q24H PRN; Protocol; 2.5 MCG/MIN PRN Reason: TITRATE PER MD ORDER Last Titration: 11/13/16 11:10 Dose: 0 mcg/min, 0 mls/hr Ceftriaxone Sodium (Rocephin 1 Gram Ivpb) 1 gm in 100 mls @ 100 mls/hr IVPB DAILY [facility] PRN Reason: Protocol Last Admin: 11/18/16 10:33 Dose: 100 mls/hr Metronidazole (Flagyl) 500 mg in 100 mls @ 100 mls/hr IVPB Q8 [facility] PRN Reason: Protocol Last Admin: 11/18/16 14:13 Dose: 100 mls/hr Lidocaine (Lidoderm) 1 ea TD DAILY [facility] Last Admin: 11/18/16 10:36 Dose: 1 ea Lisinopril (Zestril) 5 mg PO DAILY [facility] Last Admin: 11/18/16 10:34 Dose: 5 mg Magnesium Oxide (Mag-Ox) 400 mg PO BID [facility] Last Admin: 11/18/16 17:37 Dose: 400 mg Non-Formulary Medication (Cholecalciferol (Vitamin D3) [D3-50]) 50,000 unit PO QWK [facility] Last Admin: 11/12/16 10:36 Dose: Not Given Non-Formulary Medication (Lenalidomide [Revlimid]) 10 mg PO DAILY [facility] Last Admin: 11/13/16 13:36 Dose: Not Given Nystatin (Nystop Topical Powder) 0 gm TOP DAILY [facility] Last Admin: 11/18/16 10:37 Dose: 1 applic Potassium Chloride (K-Dur 20 Meq Er Tab) 20 meq PO DAILY [facility] Last Admin: 11/18/16 10:36 Dose: 20 meq Potassium Phos/Sodium Phos (Neutra-Phos) 1 pkt PO TID [facility] Stop: 11/19/16 23:00 Last Admin: 11/18/16 17:36 Dose: 1 pkt Simethicone (Mylicon Liq) 40 mg PO QID PRN PRN Reason: for stomach pain Last Admin: 11/14/16 17:38 Dose: 40 mg Trazodone HCl (Desyrel) 25 mg PO HS [facility] Last Admin: 11/17/16 21:42 Dose: 25 mg - Labs Labs: 11/18/16 06:30 11/18/16 06:30 - Constitutional Appears: No Acute Distress - Head Exam Head Exam: ATRAUMATIC, NORMOCEPHALIC - Eye Exam Eye Exam: EOMI, PERRL - ENT Exam ENT Exam: Mucous Membranes Moist - Neck Exam Neck Exam: absent: Lymphadenopathy - Respiratory Exam Respiratory Exam: Clear to Ausculation Bilateral, NORMAL BREATHING PATTERN. absent: Rales, Rhonchi - Cardiovascular Exam Cardiovascular Exam: +S1, +S2. absent: JVD - GI/Abdominal Exam GI & Abdominal Exam: Soft. absent: Tenderness, Mass - Extremities Exam Extremities Exam: absent: Calf Tenderness, Tenderness - Neurological Exam Neurological Exam: Alert, Awake, Oriented x3 Assessment and Plan - Assessment and Plan (Free Text) Assessment: this 81-year-old patient with multiple myeloma status post stem cell transplant on Revimid admitted with sepsis and urinary tract infection, pericholecystic fluid suggestive of possible acute cholecystitis but HIDA scan negative, thickened sigmoid colon with a possible diverticulitis clinically improving with IV antibiotics. Anemia status post transfusion stool for occult blood positive hemoglobin remains stable Last GI workup was 3 years ago. Patient to does not want any workup unless it is necessary and wanted her to get the previous workup from her grader marker in [place] prior to considering a repeat endoscopy evaluation. Would recommend 1.follow up with a hemoglobin and hematocrit 2. Empiric PPI therapy 3. Stools for C. difficile
[2016-11-19] MEDS: metroNIDAZOLE IV 500 mg/100 ml 500 MG/100 ML BAG IVPB SCH ×3 (05:27→21:23)
[2016-11-19 06:47] LABS: GRAN # 2.36 (1.4-6.5); GRAN % 65.9 % (50.0-68.0); HEMATOCRIT 31.4 % (36.0-48.0); LYMPH # 0.6 (1.2-3.4); LYMPH % 17.9 % (22.0-35.0); MEAN CELL VOLUME 93.2 fl (80.0-105.0); MEAN CORPUSCULAR HGB CONC 32.2 g/dl (31.0-37.0); MEAN PLATELET VOLUME 9.5 fl (7.0-11.0); MONO # 0.6 (0.1-0.6); MONO % 16.2 % (1.0-6.0); RED CELL DISTRIBUTION WIDTH 18.3 % (11.5-14.5); WHITE BLOOD COUNT 3.6 10^3/ul (4.5-11.0)
[2016-11-19 07:00] LABS: ALKALINE PHOSPHATASE 76 U/L (38-133); ALT/SGPT 30 U/L (7-56); AST/SGOT 29 U/L (15-39); BILIRUBIN,TOTAL 0.7 mg/dL (0.2-1.3); BLOOD UREA NITROGEN 14 mg/dL (7-21); CARBON DIOXIDE 31 mmol/L (21-33); CHLORIDE 103 mmol/L (98-107); GFR AFRICAN-AMERICAN > 60; GLUCOSE,RANDOM 114 mg/dL (70-110); MAGNESIUM 2.1 mg/dL (1.7-2.2); PHOSPHOROUS 2.3 mg/dL (2.5-4.5); SODIUM 142 mmol/L (132-148); TOTAL PROTEIN 5.6 g/dL (5.8-8.3)
[2016-11-19 07:11] LABS: POTASSIUM 2.9 mmol/L (3.6-5.0)
[2016-11-19 07:12] LABS: CALCIUM 6.7 mg/dL (8.4-10.5)
[2016-11-19] MEDS: Enoxaparin 30 mg Syringe SC SCH (09:14)
[2016-11-19] MEDS: Potassium Chloride 20 mEq ER Tab PO SCH (09:15)
[2016-11-19] MEDS: Magnesium Oxide 400 mg Tab UD PO SCH ×2 (09:16→17:27)
--- NOTE | 2016-11-19 09:17 | PN ---
DATE: 11/18/2016 SUBJECTIVE: Feeling better, eating better, but still has some diarrhea. No nausea or vomiting. No headache or dizziness. No chest pain. No palpitation. No shortness of breath. No swelling of the leg. PHYSICAL EXAMINATION: VITAL SIGNS: Temperature 98.5, pulse 62, respiratory rate 18, blood pressure 117/59, pulse oximetry 96%. HEENT: Head: Normocephalic and atraumatic. Eyes: PERRLA. Extraocular muscles intact. Conjunctivae clear. Nose patent. Mucous membrane moist. NECK: Supple. No carotid bruits, JVD, or thyromegaly. CHEST: Bilaterally symmetrical. HEART: S1 and S2 positive. LUNGS: Clear to auscultation. ABDOMEN: Soft. Bowel sounds are present. No organomegaly. EXTREMITIES: No edema. No cyanosis. NEUROLOGIC: The patient is awake and alert. Moving all four extremities. No focal deficit. LABORATORY DATA: White blood cells are 3.0, hemoglobin 9.7, hematocrit 29.3, platelets 149. Sodium 139, potassium 2.3, BUN 12, creatinine 0.5, glucose 107. MEDICATIONS: Tylenol, aspirin, calcium, vitamin B12, Lovenox, Solu-Cortef, Rocephin, Flagyl, Lidoderm, nystatin topical powder, trazodone, Mylicon liquid. ASSESSMENT AND PLAN: The patient is a 81-year-old lady with leukopenia; anemia; multiple myeloma, status post stem cell transplant, on Revlimid; came in with sepsis; urinary tract infection; pericholecystic fluid, suggestive of possibly acute cholecystitis by HIDA scan negative; thickened sigmoid colon with possibly diverticulitis, clinically improving with IV antibiotics. Has diarrhea with stool blood occult positive. Gastroenterology is on the case, getting Flagyl. Anemia, status post blood transfusion, hemodynamically stable. Hemoglobin is not dropping after blood transfusion. According to gastroenterology, the patient does not want much gastrointestinal workup unless it is necessary. Dr. Jamison told her that he wants to see her old record from [place] prior to considering a repeat endoscopic evaluation. Plan is to follow up H and H. The patient is getting PPI. Stool sent for Clostridium difficile colitis. GI and DVT prophylaxis. 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 Dr. Soni is on the case also. ID is on the case. We will follow. Sussy Bernardo MD
[2016-11-19] MEDS: cefTRIAXone 1 gm 1 GM/100 ML BAG IVPB SCH (09:18)
[2016-11-19] MEDS: Potassium & Sodium Phosphate PO SCH ×3 (09:18→17:28)
[2016-11-19] MEDS: Nystatin 100,000 Units/gm Topical Pow(15 gm) TOP SCH (09:19)
[2016-11-19] MEDS: Lidocaine 5% Patch TD SCH (09:37)
[2016-11-19] MEDS ORDERED: Potassium Chloride 20 mEq ER Tab PO SCH (10:30)
[2016-11-19] MEDS: CHOLECALCIFEROL 50000 UNIT PO SCH (11:09)
[2016-11-19 16:40] VITALS: RESP 19; O2SAT 97
[2016-11-19] MEDS ORDERED: Potassium Chloride 20 mEq ER Tab PO ONE (17:00)
--- NOTE | 2016-11-19 18:59 | CP.PCM.CON ---
History of Present Illness - History of Present Illness History of Present Illness: Infectious Disease Consultation: November 19, 2016 81 yo [place] female with presentation of nausea, vomiting, fevers, and chills. The patient has leukopenia. She presented with possible sepsis and UTI. The cultures grew E. Coli in both blood and urine. The patient with E. Coli Bacteremia and Sepsis based on the fever and positive cultures. The patient has been improving. The E. coli has shown good sensitivity to many antibiotics based on the sensitivity reports. The patient is feeling better overall. She patient still has a positive occult blood from stool. She required PRBC transfusions. She was evaluated for acute cholecystitis but studies to date have been negative. PMHx: Multiple myeloma, hypothyroidism, hypertension, depression, diabetes mellitus, and CVA PSHx: Bone marrow transplant, left femoral neck fracture fixation, pacemaker placement. Allergies: NKDA Social Hx: no smoking, EtOH, or illicit drug use. Active Medications Acetaminophen (Tylenol 325mg Tab) 650 mg PO Q6H PRN PRN Reason: Fever >100.4 F Last Admin: 11/19/16 00:42 Dose: 650 mg Apixaban (Eliquis) 2.5 mg PO BID [facility] PRN Reason: Protocol Last Admin: 11/19/16 17:27 Dose: 2.5 mg Aspirin (Aspirin Chewable) 81 mg PO DAILY [facility] Last Admin: 11/19/16 09:17 Dose: 81 mg Calcium Carbonate (Caltrate) 600 mg PO DAILY [facility] Last Admin: 11/19/16 09:17 Dose: 600 mg Carvedilol (Coreg) 12.5 mg PO BID [facility] Last Admin: 11/19/16 17:27 Dose: 12.5 mg Cyanocobalamin (Vitamin B12 1000 Mcg Tab) 1,000 mcg PO DAILY [facility] Last Admin: 11/19/16 09:16 Dose: 1,000 mcg Docusate Sodium (Colace) 100 mg PO TID [facility] Last Admin: 11/19/16 16:59 Dose: Not Given Hydrocortisone Sodium Succinate (Solu-Cortef) 80 mg IVP Q12 [facility] NOREPINEPHRINE BIT/0.9 % NACL (Levophed 4 Mg/ 250 Ml Ns Premixed) 4 mg in 250 mls @ 9.375 mls/hr IV .Q24H PRN; Protocol; 2.5 MCG/MIN PRN Reason: TITRATE PER MD ORDER Last Titration: 11/13/16 11:10 Dose: 0 mcg/min, 0 mls/hr Ceftriaxone Sodium (Rocephin 1 Gram Ivpb) 1 gm in 100 mls @ 100 mls/hr IVPB DAILY [facility] PRN Reason: Protocol Last Admin: 11/19/16 09:18 Dose: 100 mls/hr Metronidazole (Flagyl) 500 mg in 100 mls @ 100 mls/hr IVPB Q8 [facility] PRN Reason: Protocol Last Admin: 11/19/16 14:45 Dose: 100 mls/hr Lidocaine (Lidoderm) 1 ea TD DAILY [facility] Last Admin: 11/19/16 09:37 Dose: 1 ea Lisinopril (Zestril) 5 mg PO DAILY [facility] Last Admin: 11/19/16 09:17 Dose: 5 mg Magnesium Oxide (Mag-Ox) 400 mg PO BID [facility] Last Admin: 11/19/16 17:27 Dose: 400 mg Non-Formulary Medication (Cholecalciferol (Vitamin D3) [D3-50]) 50,000 unit PO QWK [facility] Last Admin: 11/19/16 11:09 Dose: Not Given Non-Formulary Medication (Lenalidomide [Revlimid]) 10 mg PO DAILY [facility] Last Admin: 11/13/16 13:36 Dose: Not Given Nystatin (Nystop Topical Powder) 0 gm TOP DAILY [facility] Last Admin: 11/19/16 09:19 Dose: 1 applic Potassium Chloride (K-Dur 20 Meq Er Tab) 20 meq PO DAILY [facility] Last Admin: 11/19/16 09:15 Dose: 20 meq Potassium Chloride (K-Dur 20 Meq Er Tab) 40 meq PO BRK [facility] Last Admin: 11/19/16 11:07 Dose: 40 meq Potassium Phos/Sodium Phos (Neutra-Phos) 1 pkt PO TID [facility] Stop: 11/19/16 23:00 Last Admin: 11/19/16 17:28 Dose: 1 pkt Potassium Phos/Sodium Phos (Neutra-Phos) 1 pkt PO TID [facility] Stop: 11/21/16 23:00 Simethicone (Mylicon Liq) 40 mg PO QID PRN PRN Reason: for stomach pain Last Admin: 11/14/16 17:38 Dose: 40 mg Trazodone HCl (Desyrel) 25 mg PO HS [facility] Last Admin: 11/18/16 22:51 Dose: 25 mg Family Hx: none ROS: no fevers, chills, nausea, vomiting, diarrhea, headaches, dizziness, chest pain , abdominal pain, melena, hematuria, hematemesis, hematochezia, vision loss, hearing loss, loss of consciousness. Past Patient History - Infectious Disease Hx of Infectious Diseases: None - Past Social History Smoking Status: Never Smoked - CARDIAC Hx Hypertension: No - PULMONARY Hx Respiratory Disorders: No - NEUROLOGICAL HX Cerebrovascular Accident: Yes - HEENT Hx HEENT Problems: Yes (cerumen impaction, eyeglasses) Hx Cataracts: Yes (b/l sx with implants) - RENAL Hx Chronic Kidney Disease: No - ENDOCRINE/METABOLIC Hx Diabetes Mellitus Type 1: No Hx Diabetes Mellitus Type 2: No - HEMATOLOGICAL/ONCOLOGICAL Hx Blood Transfusions: Yes Hx Blood Transfusion Reaction: No Hx Cancer: Yes Hx Shingles: Yes Other/Comment: Multiple Myeloma - INTEGUMENTARY Hx Dermatological Problems: No Other/Comment: Shingles in the right groin area and right upper buttocks - MUSCULOSKELETAL/RHEUMATOLOGICAL Hx Arthritis: Yes - GASTROINTESTINAL Hx Gastrointestinal Disorders: Yes (consitpation) - GENITOURINARY/GYNECOLOGICAL Hx Genitourinary Disorders: No Hx Incontinence: Yes - PSYCHIATRIC Hx Psychophysiologic Disorder: No Hx Substance Use: No - SURGICAL HISTORY Other/Comment: L chest pacemaker - ANESTHESIA Hx Anesthesia: Yes Hx Anesthesia Reactions: No Hx Malignant Hyperthermia: No Meds Allergies/Adverse Reactions: Allergies Allergy/AdvReac Type Severity Reaction Status Date / Time No Known Allergies Allergy Verified 11/12/16 04:40 - Medications Medications: Current Medications Acetaminophen (Tylenol 325mg Tab) 650 mg PO Q6H PRN PRN Reason: Fever >100.4 F Last Admin: 11/19/16 00:42 Dose: 650 mg Apixaban (Eliquis) 2.5 mg PO BID [facility] PRN Reason: Protocol Last Admin: 11/19/16 17:27 Dose: 2.5 mg Aspirin (Aspirin Chewable) 81 mg PO DAILY [facility] Last Admin: 11/19/16 09:17 Dose: 81 mg Calcium Carbonate (Caltrate) 600 mg PO DAILY [facility] Last Admin: 11/19/16 09:17 Dose: 600 mg Carvedilol (Coreg) 12.5 mg PO BID [facility] Last Admin: 11/19/16 17:27 Dose: 12.5 mg Cyanocobalamin (Vitamin B12 1000 Mcg Tab) 1,000 mcg PO DAILY [facility] Last Admin: 11/19/16 09:16 Dose: 1,000 mcg Docusate Sodium (Colace) 100 mg PO TID [facility] Last Admin: 11/19/16 16:59 Dose: Not Given Hydrocortisone Sodium Succinate (Solu-Cortef) 80 mg IVP Q12 [facility] NOREPINEPHRINE BIT/0.9 % NACL (Levophed 4 Mg/ 250 Ml Ns Premixed) 4 mg in 250 mls @ 9.375 mls/hr IV .Q24H PRN; Protocol; 2.5 MCG/MIN PRN Reason: TITRATE PER MD ORDER Last Titration: 11/13/16 11:10 Dose: 0 mcg/min, 0 mls/hr Ceftriaxone Sodium (Rocephin 1 Gram Ivpb) 1 gm in 100 mls @ 100 mls/hr IVPB DAILY [facility] PRN Reason: Protocol Last Admin: 11/19/16 09:18 Dose: 100 mls/hr Metronidazole (Flagyl) 500 mg in 100 mls @ 100 mls/hr IVPB Q8 [facility] PRN Reason: Protocol Last Admin: 11/19/16 14:45 Dose: 100 mls/hr Lidocaine (Lidoderm) 1 ea TD DAILY [facility] Last Admin: 11/19/16 09:37 Dose: 1 ea Lisinopril (Zestril) 5 mg PO DAILY [facility] Last Admin: 11/19/16 09:17 Dose: 5 mg Magnesium Oxide (Mag-Ox) 400 mg PO BID [facility] Last Admin: 11/19/16 17:27 Dose: 400 mg Non-Formulary Medication (Cholecalciferol (Vitamin D3) [D3-50]) 50,000 unit PO QWK [facility] Last Admin: 11/19/16 11:09 Dose: Not Given Non-Formulary Medication (Lenalidomide [Revlimid]) 10 mg PO DAILY [facility] Last Admin: 11/13/16 13:36 Dose: Not Given Nystatin (Nystop Topical Powder) 0 gm TOP DAILY [facility] Last Admin: 11/19/16 09:19 Dose: 1 applic Potassium Chloride (K-Dur 20 Meq Er Tab) 20 meq PO DAILY [facility] Last Admin: 11/19/16 09:15 Dose: 20 meq Potassium Chloride (K-Dur 20 Meq Er Tab) 40 meq PO BRK [facility] Last Admin: 11/19/16 11:07 Dose: 40 meq Potassium Phos/Sodium Phos (Neutra-Phos) 1 pkt PO TID [facility] Stop: 11/19/16 23:00 Last Admin: 11/19/16 17:28 Dose: 1 pkt Potassium Phos/Sodium Phos (Neutra-Phos) 1 pkt PO TID [facility] Stop: 11/21/16 23:00 Simethicone (Mylicon Liq) 40 mg PO QID PRN PRN Reason: for stomach pain Last Admin: 11/14/16 17:38 Dose: 40 mg Trazodone HCl (Desyrel) 25 mg PO HS [facility] Last Admin: 11/18/16 22:51 Dose: 25 mg Physical Exam - Constitutional Appears: Non-toxic, No Acute Distress, Chronically Ill - Head Exam Head Exam: ATRAUMATIC, NORMOCEPHALIC - Eye Exam Eye Exam: EOMI, PERRL Pupil Exam: NORMAL ACCOMODATION, PERRL - ENT Exam ENT Exam: Mucous Membranes Moist, Normal External Ear Exam, TM's Normal Bilaterally - Neck Exam Neck exam: Positive for: Full Rom, Normal Inspection - Respiratory Exam Respiratory Exam: Clear to Auscultation Bilateral, NORMAL BREATHING PATTERN. absent: Rales, Rhonchi, Wheezes - Cardiovascular Exam Cardiovascular Exam: REGULAR RHYTHM, RRR, +S1, +S2 - GI/Abdominal Exam GI & Abdominal Exam: Normal Bowel Sounds, Soft. absent: Distended, Tenderness - Extremities Exam Extremities exam: Positive for: full ROM, normal inspection - Neurological Exam Neurological exam: Alert, CN II-XII Intact, Oriented x3 - Psychiatric Exam Psychiatric exam: Normal Affect, Normal Mood - Skin Skin Exam: Intact, Normal Color Results - Vital Signs Recent Vital Signs: Last Vital Signs Temp 98.8 F 11/19/16 16:00 Pulse 63 11/19/16 17:27 Resp 19 11/19/16 16:00 BP 138/63 11/19/16 17:27 Pulse Ox 97 11/19/16 16:00 - Labs Result Diagrams: 11/19/16 06:20 11/19/16 06:20 Labs: Laboratory Results - last 24 hr 11/14/16 11/19/16 11/19/16 18:48 06:20 06:20 WBC 3.6 L RBC 3.37 L Hgb 10.1 L Hct 31.4 L MCV 93.2 MCH 30.0 MCHC 32.2 RDW 18.3 H Plt Count 171 MPV 9.5 Gran % 65.9 Lymph % (Auto) 17.9 L [place] % (Auto) 16.2 H Eos % (Auto) 0.0 L Baso % (Auto) 0.0 Gran # 2.36 Lymph # 0.6 L [place] # 0.6 Eos # 0.0 Baso # 0.00 Sodium 142 Potassium 2.9 L* D Chloride 103 Carbon Dioxide 31 Anion Gap 11 BUN 14 Creatinine 0.5 Est GFR ( Amer) > 60 Est GFR (Non-Af Amer) > 60 Random Glucose 114 H Calcium 6.7 L* Phosphorus 2.3 L Magnesium 2.1 Total Bilirubin 0.7 AST 29 ALT 30 Alkaline Phosphatase 76 Total Protein 5.6 L Albumin 2.8 L Globulin 2.8 Albumin/Globulin Ratio 1.0 L Crossmatch See Detail Assessment & Plan - Assessment and Plan (Free Text) Assessment: 81 yo [place] female with sepsis and bacteremia with E. coli currently on Rocephin for antibiotic treatment in setting of multiple myeloma, diabetes, hypertension, and hypothyroidism. E. coli found in both blood and urine cultures. Supportive care. Slower improving. Still with some diarrhea episodes. As the patient is still in the hospital, I would send blood and urine cultures to check for clearance of the infection. Continue on Rocephin for IV antibiotic treatment with consideration of use of Cipro 500mg BID or even use of Keflex 500 mg PO TID to complete a total of 14 days of treatment. Thank you for allowing me to participate in the care of the patient, we will follow with you.
[2016-11-20] MEDS ORDERED: DiphenhydrAMINE 12.5 mg/5 ml LIQ UD (5 ml) PO STA (02:24)
--- NOTE | 2016-11-20 02:29 | CP.PCM.PN ---
Subjective - Date & Time of Evaluation Date of Evaluation: 11/20/16 Time of Evaluation: 02:25 - Subjective Subjective: S: Patient was seen at bedside for her complaint of insomnia. Has no other complaints. Medical record was reviewed. O: Last Vital Signs 3 Temp 98.8 F 11/19/16 16:00 Pulse 61 11/19/16 22:00 Resp 19 11/19/16 16:00 BP 138/63 11/19/16 17:27 Pulse Ox 97 11/19/16 16:00 Awake, alert, not in distress. LUNGS:Normal breathing pattern. NEURO:Speech normal. A:Adjustment Insomnia. P:Benadryl Elixir 12.5 mg PO STAT. Objective - Vital Signs/Intake and Output Vital Signs (last 24 hours): Temp Pulse Resp BP Pulse Ox 98.8 F 61 19 138/63 97 11/19/16 16:00 11/19/16 22:00 11/19/16 16:00 11/19/16 17:27 11/19/16 16:00 Intake and Output: 11/19/16 11/20/16 18:59 06:59 Intake Total 800 300 Output Total 200 Balance 600 300 - Medications Medications: Current Medications Acetaminophen (Tylenol 325mg Tab) 650 mg PO Q6H PRN PRN Reason: Fever >100.4 F Last Admin: 11/19/16 20:15 Dose: 650 mg Apixaban (Eliquis) 2.5 mg PO BID [facility] PRN Reason: Protocol Last Admin: 11/19/16 17:27 Dose: 2.5 mg Aspirin (Aspirin Chewable) 81 mg PO DAILY [facility] Last Admin: 11/19/16 09:17 Dose: 81 mg Calcium Carbonate (Caltrate) 600 mg PO DAILY [facility] Last Admin: 11/19/16 09:17 Dose: 600 mg Carvedilol (Coreg) 12.5 mg PO BID [facility] Last Admin: 11/19/16 17:27 Dose: 12.5 mg Cyanocobalamin (Vitamin B12 1000 Mcg Tab) 1,000 mcg PO DAILY [facility] Last Admin: 11/19/16 09:16 Dose: 1,000 mcg Docusate Sodium (Colace) 100 mg PO TID [facility] Last Admin: 11/19/16 16:59 Dose: Not Given Hydrocortisone Sodium Succinate (Solu-Cortef) 60 mg IVP Q12 [facility] NOREPINEPHRINE BIT/0.9 % NACL (Levophed 4 Mg/ 250 Ml Ns Premixed) 4 mg in 250 mls @ 9.375 mls/hr IV .Q24H PRN; Protocol; 2.5 MCG/MIN PRN Reason: TITRATE PER MD ORDER Last Titration: 11/13/16 11:10 Dose: 0 mcg/min, 0 mls/hr Ceftriaxone Sodium (Rocephin 1 Gram Ivpb) 1 gm in 100 mls @ 100 mls/hr IVPB DAILY [facility] PRN Reason: Protocol Last Admin: 11/19/16 09:18 Dose: 100 mls/hr Metronidazole (Flagyl) 500 mg in 100 mls @ 100 mls/hr IVPB Q8 [facility] PRN Reason: Protocol Last Admin: 11/19/16 21:23 Dose: 100 mls/hr Lidocaine (Lidoderm) 1 ea TD DAILY [facility] Last Admin: 11/19/16 09:37 Dose: 1 ea Lisinopril (Zestril) 5 mg PO DAILY [facility] Last Admin: 11/19/16 09:17 Dose: 5 mg Magnesium Oxide (Mag-Ox) 400 mg PO BID [facility] Last Admin: 11/19/16 17:27 Dose: 400 mg Non-Formulary Medication (Cholecalciferol (Vitamin D3) [D3-50]) 50,000 unit PO QWK [facility] Last Admin: 11/19/16 11:09 Dose: Not Given Non-Formulary Medication (Lenalidomide [Revlimid]) 10 mg PO DAILY [facility] Last Admin: 11/13/16 13:36 Dose: Not Given Nystatin (Nystop Topical Powder) 0 gm TOP DAILY [facility] Last Admin: 11/19/16 09:19 Dose: 1 applic Potassium Chloride (K-Dur 20 Meq Er Tab) 20 meq PO DAILY [facility] Last Admin: 11/19/16 09:15 Dose: 20 meq Potassium Chloride (K-Dur 20 Meq Er Tab) 40 meq PO BRK [facility] Last Admin: 11/19/16 11:07 Dose: 40 meq Potassium Chloride (K-Dur 20 Meq Er Tab) 40 meq PO DAILY [facility] Potassium Phos/Sodium Phos (Neutra-Phos) 1 pkt PO TID [facility] Stop: 11/21/16 23:00 Simethicone (Mylicon Liq) 40 mg PO QID PRN PRN Reason: for stomach pain Last Admin: 11/14/16 17:38 Dose: 40 mg Trazodone HCl (Desyrel) 25 mg PO HS [facility] Last Admin: 11/19/16 21:26 Dose: 25 mg - Labs Labs: 11/19/16 06:20 11/19/16 06:20
--- NOTE | 2016-11-20 03:19 | CP.PCM.PN ---
Subjective - Date & Time of Evaluation Date of Evaluation: 11/19/16 Time of Evaluation: 18:00 - Subjective Subjective: No complaints, feeling better. Objective - Vital Signs/Intake and Output Vital Signs (last 24 hours): Temp Pulse Resp BP Pulse Ox 98.8 F 61 19 138/63 97 11/19/16 16:00 11/19/16 22:00 11/19/16 16:00 11/19/16 17:27 11/19/16 16:00 Intake and Output: 11/19/16 11/20/16 18:59 06:59 Intake Total 800 300 Output Total 200 Balance 600 300 - Medications Medications: Current Medications Acetaminophen (Tylenol 325mg Tab) 650 mg PO Q6H PRN PRN Reason: Fever >100.4 F Last Admin: 11/19/16 20:15 Dose: 650 mg Apixaban (Eliquis) 2.5 mg PO BID [facility] PRN Reason: Protocol Last Admin: 11/19/16 17:27 Dose: 2.5 mg Aspirin (Aspirin Chewable) 81 mg PO DAILY [facility] Last Admin: 11/19/16 09:17 Dose: 81 mg Calcium Carbonate (Caltrate) 600 mg PO DAILY [facility] Last Admin: 11/19/16 09:17 Dose: 600 mg Carvedilol (Coreg) 12.5 mg PO BID [facility] Last Admin: 11/19/16 17:27 Dose: 12.5 mg Cyanocobalamin (Vitamin B12 1000 Mcg Tab) 1,000 mcg PO DAILY [facility] Last Admin: 11/19/16 09:16 Dose: 1,000 mcg Docusate Sodium (Colace) 100 mg PO TID [facility] Last Admin: 11/19/16 16:59 Dose: Not Given Hydrocortisone Sodium Succinate (Solu-Cortef) 60 mg IVP Q12 [facility] NOREPINEPHRINE BIT/0.9 % NACL (Levophed 4 Mg/ 250 Ml Ns Premixed) 4 mg in 250 mls @ 9.375 mls/hr IV .Q24H PRN; Protocol; 2.5 MCG/MIN PRN Reason: TITRATE PER MD ORDER Last Titration: 11/13/16 11:10 Dose: 0 mcg/min, 0 mls/hr Ceftriaxone Sodium (Rocephin 1 Gram Ivpb) 1 gm in 100 mls @ 100 mls/hr IVPB DAILY [facility] PRN Reason: Protocol Last Admin: 11/19/16 09:18 Dose: 100 mls/hr Metronidazole (Flagyl) 500 mg in 100 mls @ 100 mls/hr IVPB Q8 [facility] PRN Reason: Protocol Last Admin: 11/19/16 21:23 Dose: 100 mls/hr Lidocaine (Lidoderm) 1 ea TD DAILY [facility] Last Admin: 11/19/16 09:37 Dose: 1 ea Lisinopril (Zestril) 5 mg PO DAILY [facility] Last Admin: 11/19/16 09:17 Dose: 5 mg Magnesium Oxide (Mag-Ox) 400 mg PO BID [facility] Last Admin: 11/19/16 17:27 Dose: 400 mg Non-Formulary Medication (Cholecalciferol (Vitamin D3) [D3-50]) 50,000 unit PO QWK [facility] Last Admin: 11/19/16 11:09 Dose: Not Given Non-Formulary Medication (Lenalidomide [Revlimid]) 10 mg PO DAILY [facility] Last Admin: 11/13/16 13:36 Dose: Not Given Nystatin (Nystop Topical Powder) 0 gm TOP DAILY [facility] Last Admin: 11/19/16 09:19 Dose: 1 applic Potassium Chloride (K-Dur 20 Meq Er Tab) 20 meq PO DAILY [facility] Last Admin: 11/19/16 09:15 Dose: 20 meq Potassium Chloride (K-Dur 20 Meq Er Tab) 40 meq PO BRK [facility] Last Admin: 11/19/16 11:07 Dose: 40 meq Potassium Chloride (K-Dur 20 Meq Er Tab) 40 meq PO DAILY [facility] Potassium Phos/Sodium Phos (Neutra-Phos) 1 pkt PO TID [facility] Stop: 11/21/16 23:00 Simethicone (Mylicon Liq) 40 mg PO QID PRN PRN Reason: for stomach pain Last Admin: 11/14/16 17:38 Dose: 40 mg Trazodone HCl (Desyrel) 25 mg PO HS [facility] Last Admin: 11/19/16 21:26 Dose: 25 mg - Labs Labs: 11/19/16 06:20 11/19/16 06:20 - Head Exam Head Exam: ATRAUMATIC - Eye Exam Eye Exam: Normal appearance - ENT Exam ENT Exam: Mucous Membranes Dry - Respiratory Exam Respiratory Exam: NORMAL BREATHING PATTERN - Cardiovascular Exam Cardiovascular Exam: +S1, +S2 - GI/Abdominal Exam GI & Abdominal Exam: Normal Bowel Sounds Assessment and Plan (1) Anemia Assessment & Plan: chronic disease, FOBT positive multiple myeloma s/p PRBC transfusion H/H stable Status: Acute (2) Leukopenia Assessment & Plan: mild no neutropenia Status: Acute (3) Multiple myeloma Assessment & Plan: Revlimid on hold until antibiotic regimen completed Status: Acute
--- NOTE | 2016-11-20 03:55 | PN ---
DATE: ATTENDING PHYSICIAN: Yuridia Wayne MD REASON FOR CONSULTATION: Follow up hypertension, sepsis, tachycardia, bacteremia, bandemia improved. SUBJECTIVE: The patient denies any chest pain, shortness of breath, or any palpitation. Now is in 3R, had a pacemaker interrogation done this morning. OBJECTIVE: GENERAL: Lying flat in the bed, not in apparent distress. PHYSICAL EXAMINATION: VITAL SIGNS: Temperature afebrile, heart rate 60, blood pressure 132/56. HEENT: PERRLA. Extraocular muscles intact. NECK: Supple. No carotid bruit. No thyromegaly. CHEST: Clear to auscultation. HEART: S1, S2 regular. ABDOMEN: Soft. EXTREMITIES: Clubbing and cyanosis negative. LABORATORY DATA: Blood workup as follows: WBC 3.6, hemoglobin 10.1, hematocrit 31.4, platelet count 171. Chemistry: Sodium 142, potassium 2.9, chloride 103, carbon dioxide 31, anion gap of 11, BUN 14, creatinine 0.5. Total protein 5.6, albumin 2.8, albumin/globulin ratio 1. Calcium 6.7, magnesium 2.1, phosphorus 2.3. IMPRESSION: A 81-year-old female with past medical history of bone marrow transplantation, admitted with pancytopenia, gram-negative sepsis, bandemia, hypotension now significantly improved, borderline positive troponin secondary to hemodynamic instability, no evidence of acute coronary syndrome. The patient had a pacemaker done on 01/30/2015, dual chamber pacemaker. This morning pacemaker interrogation was done, findings as follows: Battery life 8 to 9 years, around 8.5 average. It is a [employer] dual chamber pacemaker, had frequent episode of atrial fibrillation since last interrogation done. Total duration of atrial fibrillation 18 hours. P wave 3.8, R wave 14.4. Threshold for P wave is 0.625, R wave threshold 1. Impedance that is resistance, the ventricular lead is 323 Ohms and ventricular rate 418 Ohms. In summary, normal function pacemaker with battery life longevity 8 to 9 years, average 8.5 years. With frequent atrial fibrillation and flutter, total duration of 18 hours since the last interrogation was done. The patient's last echo day before yesterday shows ejection fraction of 60%, moderate aortic regurgitation, [id number] mitral regurgitation, moderate tricuspid regurgitation, mild pulmonary hypertension, right ventricular systolic pressure 53. Also, the patient has severe electrolyte imbalance, multiple electrolyte abnormality including severe hypokalemia, hypophosphatemia, hypomagnesemia, which was corrected, hypocalcemia. Gram-negative sepsis improved. RECOMMENDATIONS: Aggressively supplement electrolyte. Pancytopenia followed by Heme/Oncology. We will start low dose Eliquis because of the atrial fibrillation. Now the patient's platelet has improved. Since the patient fox a low body weight mass index, body weight kilogram, age of the patient reaching almost 82, we will give 2.5 mg b.i.d. and aggressively supplement potassium. Continue Coreg 12.5 mg and we will discontinue aspirin. We will discontinue Lovenox for deep venous thrombosis as well because we are starting Eliquis low dose. Thanking you, Dr. Bernardo for providing me an opportunity in taking care of patient Qamar Mendez. The patient asked that if she is going to [facility] in December, will continue the anticoagulation. Explained the patient that the patient should continue for the rest of her life to prevent any stroke. Interim continue carvedilol 12.5 mg and continue antibiotic as per Infectious Disease. We will aggressively supplement phosphate, magnesium and Neutra-Phos. Start Eliquis as mentioned above and we will discontinue aspirin and we will discontinue Lovenox. Pacemaker is a Medtronic dual chamber pacemaker. Though the patient has low calcium but corrected calcium would be okay because the patient is a low hemoglobin, we will give one more dose of IV calcium gluconate. Yuridia Wayne MD cc: Dr. Bernardo
--- NOTE | 2016-11-20 04:15 | PN ---
The patient is 81 years old female. SUBJECTIVE: The patient is seen and examined on the bedside, looking better. Diarrhea is getting better. No nausea or vomiting. No headache, no dizziness. Started feeling little bit strong. No shortness of breath. No coughing, no fever. PHYSICAL EXAMINATION: VITAL SIGNS: Temperature 98.8, pulse 63, blood pressure 138/63, respiratory rate 19. HEENT: Head, normocephalic and atraumatic. Eyes, PERRLA. Extraocular muscles intact. Conjunctivae clear. Nose patent. NECK: Supple. No carotid bruits, JVD or thyromegaly. CHEST: Bilaterally symmetrical. HEART: S1 and S2 positive. LUNGS: Clear to auscultation. ABDOMEN: Soft. Bowel sounds are positive. No organomegaly. EXTREMITIES: No edema. No cyanosis. NEUROLOGIC: The patient is awake and alert. Moving all four extremities. No focal deficit. MEDICATIONS: Aspirin, Caltrate, Colace, Coreg, trazodone, Eliquis, metronidazole, potassium, Revlimid, lidocaine, magnesium oxide, Mylicon, Neutra-Phos, Rocephin, Solu-Cortef tapering doses. LABORATORY DATA: White blood cells 3.6, getting better, trending up; hemoglobin 10.1, trending up; hematocrit 31.4; platelets 171. Sodium 142, potassium 2.9, BUN 14, creatinine 0.5, glucose 114, calcium 6.7 and phosphorus 2.3. ASSESSMENT AND PLAN: The patient is a 81-year-old lady with hypokalemia, got K-rider; hypocalcemia, getting calcium; hypophosphatemia, getting phosphorus; leukopenia; anemia, status post blood transfusion; proteinuria; hematuria; urinary tract infection; stool occult blood is positive; history of multiple myeloma; hypothyroidism; hypertension; depression; diabetes mellitus; cerebrovascular accident, status post bone marrow transplant; left femoral neck fracture fixation; pacemaker placement. At this time, she came with severe sepsis. Cultures grew Escherichia coli in both blood and urine. The patient with Escherichia coli bacteremia and sepsis based on fever and positive culture. The patient is improving and her bacteria Escherichia coli has sensitivity with many type of antibiotics, but still occult blood is positive. The patient is also seen for antibiotics, supportive care, slowly improving. Dr. Camarillo is the ID on that case. He will send urine culture back for clearance of the infection. Continue Rocephin antibiotics. We will consider using Cipro or ofloxacin to complete the course of 14 days of treatment. The patient is on Levaquin. The patient is getting a skipping dose of cortisol. We will continue aspirin and calcium, Colace, trazodone, Eliquis, metronidazole, potassium, magnesium, hydrocortisone, Solu-Cortef, B12, and Zestril. Gastrointestinal and deep vein thrombosis prophylaxis. Repeat labs. We will follow up. Sussy Bernardo MD
[2016-11-20] MEDS: metroNIDAZOLE IV 500 mg/100 ml 500 MG/100 ML BAG IVPB SCH (05:08)
[2016-11-20 05:36] VITALS: PULSE 60
[2016-11-20 08:52] VITALS: BP 146/63; TEMP 99.1
[2016-11-20] MEDS: Lidocaine 5% Patch TD SCH (09:45)
[2016-11-20] MEDS: Magnesium Oxide 400 mg Tab UD PO SCH (09:46)
[2016-11-20] MEDS: cefTRIAXone 1 gm 1 GM/100 ML BAG IVPB SCH (09:47)
[2016-11-20] MEDS ORDERED: Potassium Chloride 20 mEq ER Tab PO SCH (10:00)
[2016-11-20] MEDS ORDERED: Potassium & Sodium Phosphate PO SCH (10:00)
[2016-11-20] MEDS: Nystatin 100,000 Units/gm Topical Pow(15 gm) TOP SCH (10:41)
[2016-11-20] MEDS ORDERED: Potassium Chloride 20 mEq ER Tab PO ONE ×2 (14:00→18:00)
--- NOTE | 2016-11-20 17:20 | CP.PCM.PN ---
Subjective - Date & Time of Evaluation Date of Evaluation: 11/20/16 Time of Evaluation: 13:00 - Subjective Subjective: Infectious Disease Follow Up: November 20, 2016 81 yo [place] female with presentation of nausea, vomiting, fevers, and chills. The patient has leukopenia. She presented with possible sepsis and UTI. The cultures grew E. Coli in both blood and urine. The patient with E. Coli Bacteremia and Sepsis based on the fever and positive cultures. The patient has been improving. The E. coli has shown good sensitivity to many antibiotics based on the sensitivity reports. The patient is feeling better overall. She patient still has a positive occult blood from stool. She required PRBC transfusions. She was evaluated for acute cholecystitis but studies to date have been negative. Objective - Vital Signs/Intake and Output Vital Signs (last 24 hours): Temp Pulse Resp BP Pulse Ox 99.1 F 60 19 146/63 97 11/20/16 08:51 11/20/16 10:00 11/20/16 08:51 11/20/16 09:47 11/20/16 08:51 Intake and Output: 11/20/16 11/20/16 06:59 18:59 Intake Total 820 Balance 820 - Labs Labs: 11/19/16 06:20 11/19/16 06:20 - Constitutional Appears: Non-toxic, No Acute Distress, Chronically Ill - Head Exam Head Exam: ATRAUMATIC, NORMOCEPHALIC - Eye Exam Eye Exam: EOMI, PERRL Pupil Exam: NORMAL ACCOMODATION, PERRL - ENT Exam ENT Exam: Mucous Membranes Moist, Normal External Ear Exam, TM's Normal Bilaterally - Neck Exam Neck Exam: Full ROM, Normal Inspection - Respiratory Exam Respiratory Exam: Clear to Ausculation Bilateral, NORMAL BREATHING PATTERN. absent: Rales, Rhonchi, Wheezes - Cardiovascular Exam Cardiovascular Exam: REGULAR RHYTHM, RRR, +S1, +S2 - GI/Abdominal Exam GI & Abdominal Exam: Soft, Normal Bowel Sounds. absent: Distended, Tenderness - Extremities Exam Extremities Exam: Full ROM, Normal Inspection - Neurological Exam Neurological Exam: Alert, Awake, CN II-XII Intact, Oriented x3 - Psychiatric Exam Psychiatric exam: Normal Affect, Normal Mood - Skin Skin Exam: Intact, Normal Color Assessment and Plan - Assessment and Plan (Free Text) Assessment: 81 yo [place] female with sepsis and bacteremia with E. coli currently on Rocephin for antibiotic treatment in setting of multiple myeloma, diabetes, hypertension, and hypothyroidism. E. coli found in both blood and urine cultures. Supportive care. Slower improving. Still with some diarrhea episodes. As the patient is still in the hospital, I would send blood and urine cultures to check for clearance of the infection. Continue on Rocephin for IV antibiotic treatment with consideration of use of Cipro 500mg BID or even use of Keflex 500 mg PO TID to complete a total of 14 days of treatment. Thank you for allowing me to participate in the care of the patient, we will follow with you.
--- NOTE | 2016-11-21 00:22 | PN ---
REASON FOR CONSULTATION: Followup hypertension, sepsis, tachycardia, bacteremia, and bandemia, improved. SUBJECTIVE: Denies any chest pain, shortness of breath or any palpitation. OBJECTIVE: GENERAL: The patient is lying flat on the bed, not in apparent distress. VITAL SIGNS: Temperature afebrile, heart rate 60, blood pressure 146/60. HEENT: PERRLA. Extraocular muscles are intact. NECK: Supple. No carotid bruits, JVD or thyromegaly. CHEST: Clear to auscultation. HEART: S1 and S1 regular. ABDOMEN: Soft. EXTREMITIES: Clubbing and cyanosis negative. LABORATORY DATA: WBC 3.6, hemoglobin 10.8, hematocrit 31.4, and platelet count 171. Sodium 142, potassium 2.9, chloride 103, carbon dioxide 31, anion gap of 11, BUN 14, creatinine 0.5, calcium 6.7, phosphorus 2.3. Total protein 5.6, albumin 2.8, albumin/globulin ratio 1. IMPRESSION: A 81-year-old female with past medical history significant for pacemaker, sick sinus syndrome, pacemaker on 01/30/2015. Yesterday, pacemaker interrogation done. This shows normal function, but the patient has paroxysmal atrial fibrillation for 18 hours total. Admitted with pancytopenia, gram-negative sepsis, bandemia. On IV antibiotics, significantly improved. Battery life of pacemaker is 8.5 years, dual chamber. RECOMMENDATION: Start Eliquis. Supplement aggressively electrolytes. Give one potassium now at 3 p.m. and another K-Dur at 5 p.m. Continue supplement Neutro-Phos. We will follow with you. Thank you Dr. Bernardo for providing me an opportunity in taking care of Vanessa Foote. The patient had last echo on 11/13/2016 that showed ejection fraction %, mild to moderate mitral tricuspid regurgitation. Yuridia Wayne MD
--- NOTE | 2016-12-11 11:17 | DS ---
CHIEF COMPLAINT: Abdominal pain. HISTORY OF PRESENT ILLNESS: Ms. Vanessa Foote is 81 years old my private patient with past medical history of multiple myeloma, hypothyroidism, hypertension, depression, came to [facility] with symptomatic bradycardia, abdominal pain, vomited, fever, shortness of breath. The patient had history of recently hip fracture few months ago and was getting rehab, readmitted the patient, did chest x-rays, abdominal and pelvic CAT scan, bone scan was done. The patient was seen by Dr. Mihai Camarillo, Infectious Disease; Dr. Wayne, [facility] [place]; Dr. Soni, [facility]. Oncologist consult was called. The patient was admitted in the unit. Extremity ultrasound was done, improved. Discharged to rehab. We will do continuity of care there. PAST MEDICAL HISTORY: Left chest pacemaker, CVA, diabetes mellitus, anemia, status post blood transfusion, history of shingles, multiple myeloma, status post chemotherapy, and history of pacemaker. FAMILY HISTORY: Father and mother, noncontributory. HABITS: Never smoke, no drug, no ethanol. ALLERGIES: THE PATIENT IS NOT ALLERGIC WITH ANY MEDICATIONS. REVIEW OF SYSTEMS: The patient seen and examined on the bedside, looking comfortable. No nausea, vomiting, or diarrhea. No hematuria or hematochezia. No swelling of the leg. No chest pain. No palpitation. No headache or dizziness. PHYSICAL EXAMINATION: VITAL SIGNS: Temperature 98.6, afebrile, heart rate 60, blood pressure 140/60, respiratory rate 18. HEENT: Head normocephalic and atraumatic. Eyes PERRLA. Extraocular muscles intact. Conjunctivae clear. Nose is patent. Mucous membrane moist. NECK: Supple. No carotid bruits. No thyromegaly. CHEST: Bilaterally symmetrical. HEART: S1 and S2 positive. LUNGS: Clear to auscultation. ABDOMEN: Soft. Bowel sounds positive. No organomegaly. EXTREMITIES: No edema, no cyanosis. NEUROLOGIC: The patient is awake and alert. Moving all 4 extremities. No focal deficit. LABORATORY DATA: White blood cell is 3.6, hemoglobin 10.8, hematocrit 31.4 and platelets of 171. Sodium 142, potassium 2.9, BUN 40, creatinine 0.5. MEDICATIONS: Reviewed by me. ASSESSMENT AND PLAN: Ms. Vanessa Foote is 81 years old lady with past medical history for pacemaker, sick sinus syndrome, pacemaker was interrogated, shows normal function. The patient has a history of paroxysmal atrial fibrillation, pancytopenia, gram-negative sepsis, bacteremia, got IV antibiotics, started on Eliquis. Electrolytes replaced. History of hip fracture. Hematology/oncology consult called with Dr. Soni to get opinion for multiple myeloma treatment, hypokalemia and got K-rider; hypocalcemia, getting calcium; hypophosphatemia, got phosphorus; leukopenia; anemia, status post blood transfusion; hematuria; urinary tract infection; hypothyroidism; hypertension; depression; history of cerebrovascular accident, status post bone marrow transplant; left femoral neck fracture. Gastrointestinal and deep venous thrombosis prophylaxis. Repeat labs. Discharged to REHAB . We will follow. Sussy Bernardo MD [id number]
== END 2016-11-20 14:32 | DRG 871 ==
LOC: ED 04:15 → ERH 07:30 → 2RNO 13:56 → CCU 15:53 → 3RNO 11-14 12:31
PROVIDERS: ADMIT Internal Medicine; ATTEND Internal Medicine
PROC: 30233N1 Transfusion of Nonautologous Red Blood Cells into Peripheral Vein, Percutaneous Approach (ICD-10-PCS; 2016-11-16)
PROC: 4B02XSZ Measurement of Cardiac Pacemaker, External Approach (ICD-10-PCS; principal; 2016-11-20)
DX: A41.51 Sepsis due to Escherichia coli [E. coli] (principal); R65.21 Severe sepsis with septic shock; D61.818 Other pancytopenia; C90.00 Multiple myeloma not having achieved remission; Z94.81 Bone marrow transplant status; I82.431 Acute embolism and thrombosis of right popliteal vein; E44.0 Moderate protein-calorie malnutrition; N12 Tubulo-interstitial nephritis, not specified as acute or chronic; Z94.84 Stem cells transplant status; K57.32 Diverticulitis of large intestine without perforation or abscess without bleeding; I82.441 Acute embolism and thrombosis of right tibial vein; E86.0 Dehydration; I48.0 Paroxysmal atrial fibrillation; I10 Essential (primary) hypertension; E11.9 Type 2 diabetes mellitus without complications; E03.9 Hypothyroidism, unspecified; E87.6 Hypokalemia; F32.9 Major depressive disorder, single episode, unspecified; I08.3 Combined rheumatic disorders of mitral, aortic and tricuspid valves; D63.8 Anemia in other chronic diseases classified elsewhere; I27.2 Other secondary pulmonary hypertension; E83.51 Hypocalcemia; F51.02 Adjustment insomnia; E83.42 Hypomagnesemia; E83.39 Other disorders of phosphorus metabolism; Z68.20 Body mass index [BMI] 20.0-20.9, adult; Z86.73 Personal history of transient ischemic attack (TIA), and cerebral infarction without residual deficits; Z95.0 Presence of cardiac pacemaker; Z92.21 Personal history of antineoplastic chemotherapy